=== PATIENT | male | born 1965 | race Caucasian/White ===

== ENCOUNTER 2020-04-21 10:26 | Outpatient (REF) | payer OTHER, SELFPAY ==
[2020-04-21 12:01] LABS: Alanine Aminotransferase 79 U/L (0-40); Albumin Level 4.2 g/dL (3.5-5.0); Alkaline Phosphatase 88 U/L (39-117); Aspartate Amino Transferase 32 U/L (5-37); Bilirubin Total 0.5 mg/dL (0.0-1.0); Blood Urea Nitrogen 20 mg/dL (9-16); Cholesterol 183 mg/dL; Estimated Glomerular Filt Rate 59; Glucose Fasting 348 mg/dL (60-99); HDL Cholesterol 40 mg/dL; LDL Cholesterol Calculated 114 mg/dl; Total Protein 6.9 g/dL (6.5-8.0); Triglycerides 146 mg/dL
[2020-04-21 12:02] LABS: Prostate Specific Antigen Scr 0.77 ng/mL (<0.05-4.0); TSH reflex Free T4 2.78 mIU/mL (0.32-4.0)
[2020-04-21 12:07] LABS: Anion Gap 12 (12-20); Carbon Dioxide 37 mmol/L (22-29); Chloride 94 mmol/L (96-108); Potassium 4.3 mmol/l (3.3-5.1); Sodium 139 mmol/L (135-145)
== END 2020-04-21 10:27 | disposition home or self-care (01) ==
LOC: HO.HMGCLDS 10:26
PROVIDERS: PCP Nurse Practitioner Family; Visit Provider Nurse Practitioner Family
DX: Z00.00 Encounter for general adult medical examination without abnormal findings (principal); Z12.5 Encounter for screening for malignant neoplasm of prostate; E11.9 Type 2 diabetes mellitus without complications
CPT/HCPCS: 80053; 80061; 84153; 84443

== ENCOUNTER 2020-12-22 09:13 | Outpatient (REF) | payer OTHER, SELFPAY ==
[2020-12-22 12:21] LABS: Estimated Average Glucose 143 mg/dL; Hemoglobin A1c % 6.6 %
[2020-12-22 12:34] LABS: Alanine Aminotransferase 43 U/L (0-40); Albumin Level 4.2 g/dL (3.5-5.0); Alkaline Phosphatase 77 U/L (39-117); Anion Gap 13 (12-20); Aspartate Amino Transferase 21 U/L (5-37); Bilirubin Total 0.5 mg/dL (0.0-1.0); Blood Urea Nitrogen 30 mg/dL (9-16); Carbon Dioxide 33 mmol/L (22-29); Chloride 102 mmol/L (96-108); Estimated Glomerular Filt Rate 58; Glucose Fasting 135 mg/dL (60-99); Potassium 3.6 mmol/L (3.3-5.1); Sodium 144 mmol/L (135-145); Total Protein 6.7 g/dL (6.5-8.0)
[2020-12-22 12:35] LABS: Creatinine Urine 182.39 mg/dL
== END 2020-12-22 09:14 | disposition home or self-care (01) ==
LOC: HO.HMGCLDS 09:13
PROVIDERS: PCP Nurse Practitioner Family; Visit Provider Nurse Practitioner Family
DX: E11.9 Type 2 diabetes mellitus without complications (principal)
CPT/HCPCS: 36415; 80053; 82043; 83036

== ENCOUNTER 2020-12-23 12:13 | Outpatient (REF) | payer OTHER, SELFPAY ==
--- NOTE | ~2020-12-23 | XR_ITS ---
EXAMINATION: XR HAND, RIGHT CLINICAL INFORMATION: Right hand pain. COMPARISON: None. TECHNIQUE: PA, lateral, and oblique views of the right hand. FINDINGS: No acute fracture or dislocation. Mild joint space narrowing with small marginal osteophytes scattered throughout the carpometacarpal, metacarpophalangeal, and interphalangeal joints. No osseous erosion. No abnormal soft tissue calcification. XR/XR hand RT min 3V IMPRESSION: No acute fracture or dislocation. Mild degenerative arthritis scattered throughout the carpometacarpal, metacarpophalangeal, and interphalangeal joints.
== END 2020-12-23 12:14 | disposition home or self-care (01) ==
LOC: HO.HOSX 12:13
PROVIDERS: Visit Provider Orthopaedic Surgery
DX: M20.011 Mallet finger of right finger(s) (principal)
CPT/HCPCS: 73130

== ENCOUNTER → 2021-02-03 12:41 | Outpatient (BNVA) | payer OTHER, SELFPAY | PROVIDERS: Visit Provider Orthopaedic Surgery ==

== ENCOUNTER → 2021-05-03 15:00 | Outpatient (BNVA) | payer OTHER, SELFPAY | PROVIDERS: PCP Nurse Practitioner Family; Referring Provider Nurse Practitioner Family; Visit Provider Surgery ==

== ENCOUNTER 2021-07-05 16:37 | Outpatient (REF) | payer OTHER, SELFPAY | END 2021-07-05 16:38 | disposition home or self-care (01) | LOC: HO.LNP 16:37 | PROVIDERS: Visit Provider Physician Assistant | DX: L02.419 Cutaneous abscess of limb, unspecified (principal); L03.119 Cellulitis of unspecified part of limb; L98.9 Disorder of the skin and subcutaneous tissue, unspecified | CPT/HCPCS: 87071; 87077; 87186; 87205 ==

== ENCOUNTER 2021-07-22 12:42 | Outpatient (RCR) | payer OTHER, SELFPAY | END 2021-09-01 10:18 | disposition home or self-care (01) | LOC: HO.WCC 12:42 | PROVIDERS: PCP Nurse Practitioner Family; Visit Provider Surgery | DX: E11.622 Type 2 diabetes mellitus with other skin ulcer (principal); I87.332 Chronic venous hypertension (idiopathic) with ulcer and inflammation of left lower extremity; L97.822 Non-pressure chronic ulcer of other part of left lower leg with fat layer exposed; F17.210 Nicotine dependence, cigarettes, uncomplicated; F12.90 Cannabis use, unspecified, uncomplicated; I25.2 Old myocardial infarction; Z72.89 Other problems related to lifestyle; Z86.19 Personal history of other infectious and parasitic diseases; Z79.899 Other long term (current) drug therapy; Z79.84 Long term (current) use of oral hypoglycemic drugs | CPT/HCPCS: 11042; 99213 ==

== ENCOUNTER 2021-08-12 14:09 | Outpatient (REF) | payer OTHER, SELFPAY ==
[2021-08-12 14:13] VITALS: BP 113/63; PULSE 80; RESP 16; TEMP 36.8; O2SAT 92; BMI 38.0
--- NOTE | 2021-08-12 14:34 | P.OP_ITS ---
Operative Note Operative Note Date of Service: 08/12/21 Narrative: Preop diagnosis: Scalp Cyst Postop diagnosis: Scalp cyst Procedure: Excision of scalp cyst under local anesthesia Surgeon: Jovan Garrison MD The patient is a 55-year-old male note of a scalp cyst on the right occipital area. This measured about 2.0 cm in diameter. He understood the technique of excision under local anesthesia. He was aware of the risks, benefits, and alternatives. He was brought to the minor procedure room. He was placed in reclining position with the head turned to the left to expose this cystic mass on the right occipital area. This area was prepped and draped. Lidocaine 1% with e pinephrine was used for local anesthesia. I made an incision on the skin overlying this cyst using blade 15. This was carried down through the full- thickness of the skin and part of subcutaneous layer until as this capsule was visualized. I sharply dissected the cyst capsule using Metzenbaum scissors to this from the rest of subcutaneous layer until this was delivered. This was about a 2 cm cystic mass consistent with a Pilar cyst I irrigated the area of excision. I closed the incision full-thickness nylon 3- 0 interrupted sutures. Bacitracin was applied. The procedure was then complete d The patient tolerated well. There were no complication noted. He was given wound care instructions and will be seen for removal sutures in the office.
== END 2021-08-12 14:10 | disposition home or self-care (01) ==
LOC: HO.MS 14:09
PROVIDERS: PCP Nurse Practitioner Family; Visit Provider Surgery
PROC: (CPT 11422; principal; 2021-08-12 14:10)
DX: L72.0 Epidermal cyst (principal)
CPT/HCPCS: 11422; 88304

== ENCOUNTER 2021-08-23 09:02 | Outpatient (REF) | payer OTHER, SELFPAY ==
[2021-08-23 11:59] LABS: Estimated Average Glucose 146 mg/dL; Hemoglobin A1c % 6.7 %
[2021-08-23 12:28] LABS: Appearance Urine CLEAR; Color Urine YELLOW; Glucose Urine UA >=1000 MG/DL (NEG); Leukocyte Esterase Urine NEG (NEG); Nitrite Urine NEG (NEG); Specific Gravity - Urine 1.025 (1.005-1.025); Urine Blood NEG (NEG); Urine Ketones NEG (NEG); Urine Protein NEG (NEG-TRACE)
[2021-08-23 12:38] LABS: Alanine Aminotransferase 66 U/L (0-40); Albumin Level 4.3 g/dL (3.5-5.0); Alkaline Phosphatase 73 U/L (39-117); Anion Gap 14 (12-20); Aspartate Amino Transferase 35 U/L (5-37); Bilirubin Total 0.7 mg/dL (0.0-1.0); Blood Urea Nitrogen 32 mg/dL (9-16); Calcium 9.5 mg/dL (8.4-10.2); Carbon Dioxide 32 mmol/L (22-29); Chloride 100 mmol/L (96-108); Cholesterol 119 mg/dL; Estimated Glomerular Filt Rate 54; Glucose Fasting 181 mg/dL (60-99); HDL Cholesterol 35 mg/dL; LDL Cholesterol Calculated 45 mg/dl; Potassium 3.5 mmol/L (3.3-5.1); Prostate Specific Antigen Scr 0.86 ng/mL (<0.05-4.0); Sodium 142 mmol/L (135-145); TSH reflex Free T4 2.03 uIU/mL (0.32-4.0); Triglycerides 197 mg/dL
[2021-08-23 14:15] LABS: RBC Urine 0 /HPF (0); WBC Urine 0 /HPF (0-4)
== END 2021-08-23 09:03 | disposition home or self-care (01) ==
LOC: HO.HMGCLDS 09:02
PROVIDERS: PCP Nurse Practitioner Family; Visit Provider Nurse Practitioner Family
DX: Z12.5 Encounter for screening for malignant neoplasm of prostate (principal); E11.9 Type 2 diabetes mellitus without complications; L72.9 Follicular cyst of the skin and subcutaneous tissue, unspecified
CPT/HCPCS: 36415; 80053; 80061; 81001; 81003; 83036; 84153; 84443

== ENCOUNTER 2022-02-08 15:40 | Outpatient (REF) | payer OTHER, SELFPAY ==
--- NOTE | ~2022-02-08 | XR_ITS ---
EXAMINATION: XR LUMBOSACRAL SPINE CLINICAL INFORMATION: Low back pain. COMPARISON: None TECHNIQUE: Three views of the lumbosacral spine. FINDINGS: There is normal lumbar lordosis. The vertebral heights and alignment is normal. There is loss of L5-S1 disc height. The rest of the disc heights are normal. There is no visible acute fracture, dislocation or subluxation seen. No bony erosive changes. XR/XR lumbar spine 2-3V IMPRESSION: L5-S1 degenerative disc changes. No visible acute fracture, dislocation or subluxation. There is mild ventral spondylosis.
== END 2022-02-08 15:41 | disposition home or self-care (01) ==
LOC: HO.HMGCX 15:40
PROVIDERS: PCP Nurse Practitioner Family; Visit Provider Nurse Practitioner Family
DX: M54.50 Low back pain, unspecified (principal)
CPT/HCPCS: 72100

== ENCOUNTER 2022-03-11 13:00 | Outpatient (RCR) | payer OTHER, SELFPAY ==
--- NOTE | 2022-02-17 14:06 | MHC.PT.EP ---
[facility] [place] [facility] [place] [facility] [place] Office [address] Renetta Ge [address] [phone] F: [phone] F: [phone] F: [phone] F: [phone] Physical Therapy Plan of Care Date of Evaluation: Date of Surgery: Diagnosis: low back pain and right sided sciatica Assessment: Patient is a 56 year old R handed male who presents with s/s consistent with low back pain, sciatica. 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 Patient past medical history includes neck surgery, depression. Current impairments include pain, posture, radicular s/s, ROM, strength, activity tolerance and functional mobility. Functional limitations include decreased ability to perform all function activities. He notes being able to sleep on 20 minutes at a time. Patient is motivated with good rehab potential. Skilled PT will address impairments and functional limitations in order to achieve goals. Frequency and Duration: The patient will be seen 2x/week for 5 weeks Short Term Goals: I with HEP - 2 weeks Centralized s/s - 3 weeks Able to sleep > 2 hours at a time - 3 weeks [employer] Professor Goals: LEFS 48/80 - 5 weeks Max pain with ADLs 2/10 - 5 weeks Demo proper understanding for maintaining centralized s/s and proper body mechanics - 5 weeks Treatment Plan: Modalities to reduce pain, spasms and effusion. Manual therapy to restore motion and function. Therapeutic exercise to improve strength and flexibility. Neuromuscular re-education for posture and balance. Therapeutic activities to return to functional activities of daily living. Electronically signed by: Waqas Araujo, PT Please sign and return to therapist. Thank you for your referral.
--- NOTE | 2022-04-12 11:07 | MHC.PT.DC ---
[facility] [place] [facility] [place] Office [place] [facility] [address] Renetta Ge [address] [phone] F: [phone] F: [phone] F: [phone] F: [phone] Physical Therapy Discharge Report Diagnosis: low back pain and right sided sciatica Date of Surgery: Date of Evaluation: 02/17/22 Date of Discharge: 04/12/22 Treatments to Date: 3 Cancellations to Date: No Shows to Date: Discharge Status: Improved Function Independent with HEP Discharge Summary: Pt elected to continue with HEP exclusively at this time. 02/28/22: pt progressing slowly. s/s centralized to buttocks and lumbar area. updated HEP with stretching. assess response and progress as tolerated. 02/21/22: pt seems to be having success centralizing s/s so far. he has been diligent with HEP. we will attempt to progress with core stab NV. Patient is a 56 year old R handed male who presents with s/s consistent with low back pain, sciatica. 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 Patient past medical history includes neck surgery, depression. Current impairments include pain, posture, radicular s/s, ROM, strength, activity tolerance and functional mobility. Functional limitations include decreased ability to perform all function activities. He notes being able to sleep on 20 minutes at a time. Patient is motivated with good rehab potential. Skilled PT will address impairments and functional limitations in order to achieve goals. Electronically signed by: Waqas Araujo, PT Please sign and return to therapist. Thank you for your referral.
== END 2022-04-12 11:08 | disposition home or self-care (01) ==
LOC: HO.PTCHIC 13:00
PROVIDERS: PCP Nurse Practitioner Family; Visit Provider Nurse Practitioner Family
DX: M54.50 Low back pain, unspecified (principal); M54.30 Sciatica, unspecified side
CPT/HCPCS: 97014; 97110; 97140; 97162

== ENCOUNTER 2022-06-22 12:19 | Outpatient (REF) | payer OTHER, SELFPAY ==
[2022-06-22 14:25] LABS: Appearance Urine Clear; Color Urine Yellow; Glucose Urine UA >=1000 mg/dL (Negative); Leukocyte Esterase Urine Negative (Negative); Nitrite Urine Negative (Negative); PH 5.5 (5.0-9.0); Specific Gravity - Urine >= 1.030 (1.005-1.025); UMIC TRIGGER UACC YES; Urine Blood Negative (Negative); Urine Ketones Negative (Negative); Urine Protein 30 (1+) mg/dL (Neg-Trace)
[2022-06-22 14:27] LABS: Bacteria Urine None Seen (None Seen); RBC Urine 0-2 /HPF (0-2); WBC Urine 0-5 /HPF (0-5)
[2022-06-22 14:34] LABS: MANUAL DIFF FLAG NO
[2022-06-22 14:52] LABS: Basophils Absolute Auto 0.1 X10*3/uL (0.0-0.2); Basophils Percent Auto 0.6 % (0-2); Eosinophils Absolute Auto 0.5 X10*3/uL (0.0-0.4); Eosinophils Percent Auto 4.7 % (0-4); Hematocrit 52.1 % (42.0-52.0); Hemoglobin 17.1 g/dl (14.0-18.0); Imm Gran Abs Auto 0.03 X10*3/uL (0.00-0.03); Imm Gran Pct Auto 0.3 % (0.0-0.4); Lymphocytes Percent Auto 20.9 % (20-40); Mean Corpuscular HGB Conc 32.8 g/dl (31.0-36.0); Mean Corpuscular Hemoglobin 29.5 pg (27.0-33.0); Mean Platelet Volume 11.5 fL (9.4-12.4); Neutrophils Absolute Auto 6.2 x10*3/uL (2.0-8.3); Neutrophils Percent Auto 63.5 % (45-73); Platelet Count 181 X10*3/uL (160-400); Red Blood Count 5.79 X10*6/uL (4.60-5.80); Red Cell Distribution Width 12.8 % (11.0-16.0); White Blood Count 9.7 X10*3/uL (4.8-10.8)
[2022-06-22 15:18] LABS: Alanine Aminotransferase 54 U/L (0-40); Albumin Level 4.2 g/dL (3.5-5.0); Alkaline Phosphatase 80 U/L (39-117); Anion Gap 13 (12-20); Aspartate Amino Transferase 29 U/L (5-37); Bilirubin Total 0.7 mg/dL (0.0-1.0); Blood Urea Nitrogen 33 mg/dL (9-16); Calcium 9.2 mg/dL (8.4-10.2); Carbon Dioxide 34 mmol/L (22-29); Chloride 102 mmol/L (96-108); Cholesterol 112 mg/dL; Estimated Glomerular Filt Rate 45; Glucose Fasting 119 mg/dL (60-99); HDL Cholesterol 32 mg/dL; LDL Cholesterol Calculated 44 mg/dl; Potassium 3.9 mmol/L (3.3-5.1); Sodium 145 mmol/L (135-145); Total Protein 6.6 g/dL (6.5-8.0); Triglycerides 183 mg/dL
[2022-06-22 15:38] LABS: Estimated Average Glucose 148 mg/dL; Hemoglobin A1c % 6.8 %
== END 2022-06-22 12:20 | disposition home or self-care (01) ==
LOC: HO.HMGCLDS 12:19
PROVIDERS: PCP Nurse Practitioner Family; Visit Provider Nurse Practitioner Family
DX: E11.9 Type 2 diabetes mellitus without complications (principal)
CPT/HCPCS: 36415; 80053; 80061; 81001; 82043; 83036; 84443; 85025

== ENCOUNTER 2022-07-14 11:33 | Outpatient (REF) | payer OTHER, SELFPAY ==
--- NOTE | ~2022-07-14 | US_ITS ---
EXAMINATION: US ABDOMEN COMPLETE CLINICAL INFORMATION: Abnormal levels of other serum enzymes. COMPARISON: None available. TECHNIQUE: Real-time imaging of the abdominal viscera. FINDINGS: PANCREAS: Obscured by bowel gas and could not be evaluated. ABDOMINAL AORTA: Obscured by bowel gas and poorly seen. The distal abdominal aorta measures 2 cm. INFERIOR VENA CAVA: Visualized portions are normal. LIVER: The liver is enlarged measuring greater than 19.5 cm in cephalocaudad dimension with increased echogenicity, consistent with hepatic steatosis. The liver contour is normal. No focal hepatic lesion. There is no intrahepatic biliary duct dilatation seen. GALLBLADDER: Surgically absent. COMMON BILE DUCT: Normal in caliber measuring 0.3 cm in diameter. RIGHT KIDNEY: A lower pole 2.2 cm Bosniak class I cyst is present which needs no additional imaging or follow up. No solid renal masses. No hydronephrosis or renal calculi. The kidney measures 11.5 cm in maximum dimension. LEFT KIDNEY: 2 lower pole Bosniak class I cysts are seen the largest measuring 1.2 cm. These need no additional imaging or follow up. No solid renal masses. No hydronephrosis or renal calculi. The kidney measures 13.1 cm in maximum dimension. SPLEEN: Normal. The spleen is minimally enlarged measuring 12.3 cm in maximum dimension. FREE FLUID: None. US/US abdomen complete IMPRESSION: Enlarged fatty liver with mild splenomegaly.
== END 2022-07-14 11:34 | disposition home or self-care (01) ==
LOC: HO.HMGCX 11:33
PROVIDERS: PCP Nurse Practitioner Family; Visit Provider Nurse Practitioner Family
DX: R74.8 Abnormal levels of other serum enzymes (principal)
CPT/HCPCS: 76700

== ENCOUNTER 2022-12-28 10:01 | Outpatient (AMB) | payer OTHER, SELFPAY ==
[2022-12-28 10:24] VITALS: BP 102/68; PULSE 59; O2SAT 96; BMI 38.4
--- NOTE | 2022-12-28 10:24 | A.OFFPC_ITS ---
Vital Signs 12/28/22 10:24 Height 5 ft 10 in Weight 267 lb 6 oz BMI 38.4 BP 102/68 Blood Pressure Location Lt brachial Position Sitting Pulse 59 Pulse Source Pulse Oximeter Pulse Oximetry (%) 96 Oxygen Delivery Method Room Air Intake Visit Reasons: DM Allergies Opioids - Morphine Analogues Allergy (Unknown, Verified 12/28/22 11:24) unknown Medication List - Last Reconciled 12/28/22 by Ta Serrano, SHINGLES ROOFER HELPER- albuterol sulfate 90 mcg/actuation 2 puffs inhalation Q4-6H PRN alcohol swabs (Alcohol Prep Pads) 1 pad topical BID atorvastatin 10 mg PO BEDTIME blood sugar diagnostic Onetouch test strips blood sugar diagnostic (TameTouch Ultra Blue Test Strip) Use to test blood sugar twice daily or as needed blood-glucose meter (TameTouch Ultra2 Meter) Use to check blood sugar twice daily or as needed carvedilol 25 mg PO BID 90 days clonidine HCl 0.2 mg PO BID empagliflozin (Jardiance) 10 mg PO DAILY gabapentin 200 mg (2 x 100 mg) PO TID 30 days hydralazine 100 mg PO TID hydrochlorothiazide 25 mg PO DAILY 90 days lancets (TameTouch Delica Plus Lancet) Use to check blood sugar twice daily lancets As directed lisinopril 40 mg PO DAILY metformin 1,000 mg PO BID naproxen 500 mg PO BID PRN 30 days nifedipine ER 30 mg PO BID oxycodone 5 mg PO BID PRN 8 days semaglutide (Ozempic) 0.25 mg (0.368 mL) subcut QWEEK sertraline (Zoloft) 100 mg PO DAILY 90 days tizanidine 4 mg PO BID PRN 30 days Tobacco use date assessed: 12/28/22 Dental Screening Dental Screen Date: 12/28/22 Did you have a dental visit in the last 12 months?: Yes Did you have a dental problem in the last 6 months where you did not have access to dental care?: No Was dental information given to patient?: Patient has dentist HPI DM HPI Details Pt is a diabetic, on an AKRL and a statin. A1C in office today is 7.1. Microalbumin is up to date. Denies polyuria, polydipsia, does report neuropathy. Pt denies any signs and symptoms of hypoglycemia and does know how to correct it. Eye exam is up to date. Pt was recently on steroids which caused his blood sugar to be in the 200s-300s. Will start ozempic 0.25mg. Due for PSA, will order. Denies dribbling with urination, weak stream, and nocturia. Pt is following up with the spine center on 01/25 due to chronic lower back pain. He is having severe mobility issues and walks with a cane, hunched forward. Denies any signs of cauda equina. [facility] Medical History Arthritis Asthma Depression Diabetes (~2019) Hypertension Nicotine dependence, cigarettes, uncomplicated Sleep apnea Surgical History History of cholecystectomy (~1996) History of excision of lesion (~2021) History of liver biopsy (~1996) Family History Mother Diabetes Hypertension Father Diabetes Hypertension Hyperlipidemia Social History Housing: House Alcohol intake: current Alcohol intake frequency: a few times a week Patient Tobacco Use Status: Current everyday Tobacco user Cigarette Packs Per Day: 1 Cigarettes Per Day: 16 Second Hand Smoke Exposure: Yes service: No Current occupational status: retired and disabled Current occupational exposures/hazards: No Cognitive needs: No Hearing needs: No Vision needs: No Questionnaire Thrive Questionnaire Date Thrive assessed: 07/19/21 I am a: Patient What is your living situation today?: I have a steady place to live Within the past 12 months, did the food you bought not last and you didn't have the money to get more?: Never true Within the past 12 months, did you worry whether your food would run out before you got money to buy more?: Never true AUDIT C Alcohol Use Questionnaire (AUDIT-C) 1. How often do you have a drink containing alcohol?: 2-3 times a week 2. How many drinks containing alcohol do you have on a typical day when you are drinking?: 1 or 2 3. How often do you have six or more drinks on one occasion?: Never Total Score: 3 GELA-7 AMB Questionnaire GELA-7 Date GELA - 7 assessed: 07/19/21 Feeling nervous, anxious, or on edge: 3 = Nearly every day Not being able to stop or control worryin = Nearly every day Worrying too much about different things: 3 = Nearly every day Trouble relaxin = Not at all Being so restless that it is hard to sit still: 0 = Not at all Becoming easily annoyed or irritable: 2 = More than half the days Feeling afraid as if something awful might happen: 3 = Nearly every day Total GELA-7 score (0-4 normal; 5-9 mild; 10-14 moderate; 15-21 severe): 14 Source: Developed by Drs. Gamaliel Medina, Donya Robbins, Amol Griffin and colleagues, with an educational eli from [employer]. Review of Systems Const Reports as per HPI Physical exam (Primary Care) Vital Signs: Last Vital Signs Pulse 59 12/28/22 10:24 BP 102/68 12/28/22 10:24 Pulse Ox 96 12/28/22 10:24 Oxygen Delivery Method Room Air 12/28/22 10:24 BMI result Body Mass Index 38.4 Tobacco/Smoking Status: Tobacco use Status Tobacco use date assessed 12/28/22 12/28/22 10:31 Patient Tobacco Use Status Current everyday Tobacco 12/28/22 10:24 Thrive Assessment: Date of Thrive Assessment Date Thrive assessed 07/19/21 12/28/22 10:24 Const Other: slow gait General: cooperative Nutritional Appearance: obese Orientation/consciousness: patient oriented x3 Limitations: ambulation with cane Resp Effort & Inspection: normal respiratory effort Auscultation: wheezes (faint) scattered wheezes Cardio Rate: regular rate Rhythm: regular rhythm Heart sounds: S1 normal heart sound present and S2 normal heart sound present Neuro General: patient oriented x3 Extrem Other: +1-2 pitting edema to BLE, feet intact, weakness to BLE, + patellar reflexes bilat Psych Appearance: grossly normal Mental Status: mental status grossly normal Speech and movement: Normal speech and movement present Affect: normal affect Attitude: cooperative Thought process: Normal thought process present Thought content: Normal thought content present Insight: Good insight present (Psych) Judgement: Good judgement present (Psych) Results AMB Hemoglobin A1c AMB Hemoglobin A1c 7.1 % Last Edit by Talia Barbour CMA on 12/28/22 10: 42 Results Reviewed Results Reviewed: Laboratory Last Values Hgb A1c (Clinic) 7.1 % (4.0-6.0) H 12/28/22 10:37 Assessment and Plan Assessment & Plan (1) Screening PSA (prostate specific antigen): Code(s): Z12.5 - Encounter for screening for malignant neoplasm of prostate Plan: PSA ordered (2) Diabetes: Onset Date: ~2019 Code(s): E11.9 - Type 2 diabetes mellitus without complications (3) Lower back pain: Code(s): M54.50 - Low back pain, unspecified (4) Nerve root compression: Code(s): 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 Scribed for SYED Barrera-BC by Katherine Major medical radiation dosimetrist, on 12/28/2022 at 10:30 EST. Orders: Orders Comprehensive White. Panel Fast Today E11.9 - Type 2 diabetes mellitus without complications Lipid Panel Today E11.9 - Type 2 diabetes mellitus without complications TSH reflex Free T4 Today E11.9 - Type 2 diabetes mellitus without complications Complete Blood Count Auto Diff Today E11.9 - Type 2 diabetes mellitus without complications UA CC w/rflx Micro + Cult Today E11.9 - Type 2 diabetes mellitus without complications Prostate Specific Antigen Scr Today Z12.5 - Encounter for screening for malignant neoplasm of prostate CA echo transthoracic complete Today M79.89 - Other specified soft tissue disorders B Type Natriuretic Peptide Today M79.89 - Other specified soft tissue disorders AMB Hemoglobin A1c Today E11.9 - Type 2 diabetes mellitus without complications Medications: New semaglutide (Ozempic) for 4 weeks 0.25 mg (0.368 mL) subcut QWEEK 3 mL 2RF Coding Level of Care Code Est Pt Level 3 (55136) Diagnoses Screening PSA (prostate specific antigen) Z12.5 Diabetes E11.9 Lower back pain M54.50 Nerve root compression G54.9 Leg swelling M79.89
== END 2022-12-28 11:09 | disposition home or self-care (01) ==
PROVIDERS: Visit Provider Nurse Practitioner Family
DX: Z12.5 Encounter for screening for malignant neoplasm of prostate (principal); E11.9 Type 2 diabetes mellitus without complications; M54.50 Low back pain, unspecified; G54.9 Nerve root and plexus disorder, unspecified; M79.89 Other specified soft tissue disorders
CPT/HCPCS: 83036; 99213

== ENCOUNTER 2022-12-28 11:07 | Outpatient (REF) | payer OTHER, SELFPAY ==
[2022-12-28 13:22] LABS: MANUAL DIFF FLAG NO
[2022-12-28 13:41] LABS: Basophils Absolute Auto 0.1 X10*3/uL (0.0-0.2); Basophils Percent Auto 0.4 % (0-2); Eosinophils Absolute Auto 0.2 X10*3/uL (0.0-0.4); Eosinophils Percent Auto 1.2 % (0-4); Imm Gran Abs Auto 0.21 X10*3/uL (0.00-0.03); Imm Gran Pct Auto 1.6 % (0.0-0.4); Lymphocytes Absolute Auto 1.9 X10*3/uL (1.2-4.9); Lymphocytes Percent Auto 14.8 % (20-40); Mean Corpuscular HGB Conc 32.7 g/dl (31.0-36.0); Mean Corpuscular Volume 94.7 fL (80.0-98.0); Mean Platelet Volume 11.3 fL (9.4-12.4); Monocytes Absolute Auto 1.1 X10*3/uL (0.1-1.2); Monocytes Percent Auto 8.7 % (2-11); Neutrophils Absolute Auto 9.3 x10*3/uL (2.0-8.3); Neutrophils Percent Auto 73.3 % (45-73); Platelet Count 197 X10*3/uL (160-400); Red Blood Count 5.49 X10*6/uL (4.60-5.80); Red Cell Distribution Width 13.2 % (11.0-16.0); White Blood Count 12.7 X10*3/uL (4.8-10.8)
[2022-12-28 14:08] LABS: B Type Natriuretic Peptide 59 pg/mL (<100)
[2022-12-28 14:20] LABS: Appearance Urine Clear; Color Urine Yellow; Glucose Urine UA Negative (Negative); Leukocyte Esterase Urine Negative (Negative); Nitrite Urine Negative (Negative); PH 5.5 (5.0-9.0); Specific Gravity - Urine 1.025 (1.005-1.025); Urine Blood Negative (Negative); Urine Ketones Negative (Negative); Urine Protein Trace mg/dL (Neg-Trace)
[2022-12-28 14:31] LABS: Alanine Aminotransferase 65 U/L (0-40); Albumin Level 4.2 g/dL (3.5-5.0); Alkaline Phosphatase 55 U/L (39-117); Anion Gap 14 (12-20); Aspartate Amino Transferase 24 U/L (5-37); Bilirubin Total 0.7 mg/dL (0.0-1.0); Blood Urea Nitrogen 37 mg/dL (9-16); Calcium 9.8 mg/dL (8.4-10.2); Carbon Dioxide 32 mmol/L (22-29); Chloride 105 mmol/L (96-108); Cholesterol 137 mg/dL (<200); Estimated Glomerular Filt Rate 56; Glucose Fasting 172 mg/dL (60-99); HDL Cholesterol 38 mg/dL (>40); LDL Cholesterol Calculated 49 mg/dL (<100); Potassium 4.9 mmol/L (3.3-5.1); Prostate Specific Antigen Scr 0.55 ng/mL (<0.05-4.0); Sodium 146 mmol/L (135-145); TSH reflex Free T4 2.54 uIU/mL (0.32-4.0); Total Protein 6.5 g/dL (6.5-8.0); Triglycerides 253 mg/dL (<150)
== END 2022-12-28 11:08 | disposition home or self-care (01) ==
LOC: HO.HMGCLDS 11:07
PROVIDERS: PCP Nurse Practitioner Family; Visit Provider Nurse Practitioner Family
DX: Z12.5 Encounter for screening for malignant neoplasm of prostate (principal); E11.9 Type 2 diabetes mellitus without complications; M79.89 Other specified soft tissue disorders
CPT/HCPCS: 36415; 80053; 80061; 81003; 83880; 84153; 84443; 85025

== ENCOUNTER 2022-12-30 14:52 | Outpatient (REF) | payer OTHER, SELFPAY ==
--- NOTE | ~2022-12-30 | XR_ITS ---
EXAMINATION: XR CHEST CLINICAL INFORMATION: Elevated white blood cell count. COMPARISON: None TECHNIQUE: 2 views of the chest were obtained. FINDINGS: The cardiomediastinal silhouette is normal. There is no focal lung consolidation or pleural effusion. The bony structures and soft tissues are unremarkable. XR/XR chest 2V IMPRESSION: No active cardiopulmonary disease.
--- NOTE | 2022-12-30 14:58 | ECG_ITS ---
Test Reason : type II DM Blood Pressure : / mmHG Vent. Rate : 072 BPM Atrial Rate : 072 BPM P-R Int : 244 ms QRS Dur : 118 ms QT Int : 406 ms P-R-T Axes : 038 030 071 degrees QTc Int : 444 ms Sinus rhythm with 1st degree A-V block Intra-ventricular conduction delay Septal infarct , age undetermined Abnormal ECG No previous ECGs available Referred By: Ta Serrano Electronically Signed By:SARTHAK PATEL
== END 2022-12-30 14:53 | disposition home or self-care (01) ==
LOC: HO.XRAY 14:52
PROVIDERS: PCP Nurse Practitioner Family; Visit Provider Nurse Practitioner Family
DX: E11.9 Type 2 diabetes mellitus without complications (principal); M79.89 Other specified soft tissue disorders; D72.829 Elevated white blood cell count, unspecified
CPT/HCPCS: 71046; 93005

== ENCOUNTER 2023-01-06 13:39 | Outpatient (REF) | payer OTHER, SELFPAY ==
--- NOTE | ~2023-01-06 | XR_ITS ---
EXAMINATION: XR LUMBOSACRAL SPINE CLINICAL INFORMATION: Reason for Exam G54.9 - Nerve root and plexus disorder, unspecified COMPARISON: Lumbar spine radiographs 02/08/2022 TECHNIQUE: 3 views of the lumbar spine FINDINGS: 5 nonrib-bearing lumbar-type vertebral bodies. Vertebral body heights are maintained. Grade 1 retrolisthesis of L2 on L3 and L3 on L4 minimally progressed from prior. No instability on flexion extension views. Mild multilevel degenerative disc disease with loss of disc space height and facet arthropathy and disc osteophyte complexes, similar to prior. Atherosclerosis of the abdominal aorta. Right upper quadrant cholecystectomy clips. XR/XR lumbar spine 4V min IMPRESSION: * Mild multilevel degenerative disc disease, similar to prior. * Grade 1 retrolisthesis of L2 on L3 and L3 on L4 minimally progressed from prior. No instability on flexion extension views.
== END 2023-01-06 13:40 | disposition home or self-care (01) ==
LOC: HO.HOSX 13:39
PROVIDERS: PCP Nurse Practitioner Family; Visit Provider Physician Assistant
DX: G54.9 Nerve root and plexus disorder, unspecified (principal); G95.9 Disease of spinal cord, unspecified
CPT/HCPCS: 72110

== ENCOUNTER 2023-01-06 13:39 | Outpatient (AMB) | payer OTHER, SELFPAY ==
--- NOTE | 2023-01-06 13:52 | A.SPINEOV_ITS ---
Intake Intake Visit Reasons: low back pain Intake Note: Mr. Xavier is here today c/o low back pain. MRI done @ [facility]/brought disc. 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 He is a 57-year-old diabetic, presents to the office today for evaluation of progressive severe pain starting in his tailbone going down both of his legs to his outer calves into his feet. He has had the symptoms on and off now for a number of years but have been getting progressively worse. This October he fell and his noticed the symptoms getting significantly worse. He underwent an MRI showing severe stenosis at L4-5 and L3-4 with moderate stenosis at L2-3 as well as a disc bulge on the right at L5-S1. Through the years he has undergone physical therapy. More recently he has been getting steroid taper to try to help with the discomfort. The symptoms are aggravated with standing and walking and go away when he sits. The right leg is probably worse than the left. He has altered sensation on the bottom of his feet. He currently will take Zanaflex, oxycodone Aleve and Neurontin to help deal with the symptoms. PMH: Asthma, chronic kidney disease, diabetes with A1c of 7.1, depression, hypertension, ACDF in 2017, gallbladder surgery, lithotripsy Social hx: Smoking a pack of cigarettes a day Medications: Jardiance, he is going to start Ozempic soon, metformin, Coreg, nifedipine, Flomax, clonidine, lisinopril, hydrochlorothiazide, hydralazine, atorvastatin, Zoloft, Zanaflex, oxycodone, Aleve and Neurontin Allergies: Morphine gives him itching Physical exam: He is awake alert oriented no acute distress here with his today. She is a nurse. He has good strength in the upper extremities. He has a lot of discomfort with movement proximally in his lower extremities but his strength appears to be full. He is diffusely hyperreflexic with Loja's in his left hand. He walks with an antalgic gait flexed forward. Imaging review: He had a lumbar MRI done at [facility] showing significant stenosis throughout most of his lumbar spine including moderate stenosis at L2- 3, moderate to severe stenosis at L3-4 and severe stenosis at L4-5. He has a right-sided disc bulge at L5-S1 which is displacing the right S1 nerve root. Impression: 57-year-old diabetic gentleman, history of a previous ACDF 7 years ago presents for evaluation of progressive difficulty walking with classic neurogenic claudication with severe stenosis at L4-5, moderate to severe at L3-4 as well as moderate stenosis at L2-3 and a right disc bulge at L5-S1. From the standpoint of the claudicating discomfort I think most of the symptoms are coming from L4-5 and L3-4. I showed him his imaging, we discussed at length the nature of lumbar stenosis and the fact that at this point given his significant disabilities with standing and walking that I think he would be a good candidate for lumbar decompression. I will need to review with Dr. Fernandes if he thinks we should go for all 4 of the spots in his spine or just stick with the 2 that looks the worst given his young age. I am going to send him for standing flexion-extension x-rays to rule out any instability that would necessitate spinal fusion. I am also going to order C-spine MRI because he is still diffusely hyperreflexic and I want to make sure he does not have some kind of occult cervical stenosis that may be also overlapping his lumbar stenosis giving him walking difficulties. We will need some kind of preoperative clearance from your office before surgery given his multiple risk factors. Thank you for allowing us to care for your patient. The total time spent with this visit with this patient was 45 minutes reviewing history, physical exam, lumbar imaging review, and implementation of treatment plan or further diagnostic testing Daryl Fernandes MD,PhD [facility] Orders: Orders MR cervical spine wo con Today G54.9 - Nerve root and plexus disorder, unspecified, G95.9 - Disease of spinal cord, unspecified XR lumbar spine 4V min Today G54.9 - Nerve root and plexus disorder, unspecified Coding Level of Care Code New Pt Level 4 (84809) Diagnoses Nerve root compression G54.9 Cervical myelopathy G95.9
== END 2023-01-06 14:54 | disposition home or self-care (01) ==
PROVIDERS: PCP Nurse Practitioner Family; Referring Provider Nurse Practitioner Family; Visit Provider Physician Assistant
DX: G54.9 Nerve root and plexus disorder, unspecified (principal); G95.9 Disease of spinal cord, unspecified
CPT/HCPCS: 99204

== ENCOUNTER 2023-01-31 13:39 | Outpatient (AMB) | payer OTHER, SELFPAY ==
--- NOTE | 2023-01-31 13:58 | A.SPINEOV_ITS ---
Intake Intake Visit Reasons: MRI follow up Intake Note: Mr. Xavier is here today to discuss the results of his Cervical Spine MRI. Business Asst Required: No Allergies Opioids - Morphine Analogues Allergy (Unknown, Verified 12/28/22 11:24) unknown Assessment & Plan Assessment & Plan (1) Cervical myelopathy: Code(s): G95.9 - Disease of spinal cord, unspecified Plan Mr Xavier is here in follow-up to review his cervical MRI. I originally saw him with complaints of bilateral lower extremity pain and booked him for lumbar decompression at the L3-4 and L4-5 levels. There the course of her and review he told me he had a previous cervical fusion anteriorly at [facility] about 5 or 6 years ago from C4-C7. He was demonstrating signs of hyperreflexia so is concerned about adjacent segment disease and ordered an MRI. The MRI was done at [email or web address] and it showed evidence of severe cervical stenosis with suspected cord signal change at C3-4. I reviewed the imaging with Dr. Fernandes, we are recommending he undergo anterior cervical fusion C3-4 before we proceed with the lumbar decompression. We did a set of x-rays in the office, and we do not think we will have to remove the plate to get access to the C3-4. We will book his lumbar decompression for 3 weeks after the anterior cervical fusion. All pertinent risks and benefits of anterior cervical fusion and lumbar decompression were discussed as well as risks and benefits and the patient is aware and wished to proceed. Total amount of time spent in this visit was 20 minutes in discussion of symptoms, cervical and lumbar imaging results and subsequent plan of care Daryl Fernandes MD,PhD [facility] Orders: Orders XR cervical spine 4V Today G95.9 - Disease of spinal cord, unspecified Coding Level of Care Code Est Pt Level 3 (16991) Diagnoses Cervical myelopathy G95.9
== END 2023-01-31 14:22 | disposition home or self-care (01) ==
PROVIDERS: PCP Nurse Practitioner Family; Visit Provider Physician Assistant
DX: G95.9 Disease of spinal cord, unspecified (principal)
CPT/HCPCS: 99213

== ENCOUNTER 2023-01-31 14:12 | Outpatient (REF) | payer OTHER, SELFPAY | END 2023-01-31 14:13 | disposition home or self-care (01) | LOC: HO.HOSX 14:12 | PROVIDERS: Visit Provider Physician Assistant | DX: G95.9 Disease of spinal cord, unspecified (principal) | CPT/HCPCS: 72050 ==

== ENCOUNTER → 2023-01-31 14:59 | Outpatient (REF) | payer OTHER, SELFPAY ==
--- NOTE | 2023-01-31 15:02 | CA_ITS ---
Transthoracic Echocardiogram Patient (Last, First, Middle): Zackery Xavier, Gender: Male Date of : 1965 Age: 57 Procedure Date: 01/31/2023 Procedure Type: Transthoracic Echocardiogram Location: OP Height: 177.8 cm Weight: 113.4 kg BSA: 2.29 m2 Heart Rate: bpm BP: 118 / 70 mmHg Rooming House Operator: MONICA Referring MD: Ta Serrano JEWEL OLIVING MACHINE OPERATOR- Symptoms: M79.89 - Other specified soft tissue disorders Study Quality: Adequate ECG Rhythm: Sinus Conclusions: - The left ventricular systolic function is normal. The calculated ejection fraction is 63% by biplane method. - There is moderately increased left ventricular wall thickness. - There is severe septal and severe basal asymmetric hypertrophy. - No obvious valvular pathology seen on this study. Findings Left Ventricle Normal left ventricular cavity size. There is moderately increased left ventricular wall thickness. The left ventricular systolic function is normal. The calculated ejection fraction is 63% by biplane method. There is no evidence of regional wall motion abnormalities. Evidence suggests grade I (mild) diastolic dysfunction. There is severe septal and severe basal asymmetric hypertrophy. LV peak GLS -15.7%. Right Ventricle Normal right ventricular cavity size and systolic function. Atria Both atria are normal in size. Aortic Valve There is a normal trileaflet aortic valve. There is mild calcification of the aortic valve. There is no aortic valve stenosis. There is no aortic valve regurgitation. Mitral Valve The mitral valve appears normal. There is no mitral valve regurgitation. There is no mitral valve stenosis. Pulmonic Valve The pulmonic valve is likely normal. Tricuspid Valve Normal tricuspid valve structure. There is trace tricuspid valve regurgitation. There is no evidence of pulmonary hypertension. Great Vessels The asc aorta is normal in size. Venous The inferior vena cava is normal in size and collapses greater than 50% with inspiration. Pericardium/Pleural There is no evidence of pericardial effusion. Prior Study Comparison No prior study available for comparison. Recommendations, Care & Conclusions No obvious valvular pathology seen on this study. Measurements 2D Linear Measurements IVSd: 1.75 0.6-0.9/0.6-1.0 cm LVIDd: 4.84 3.9-5.3/4.2-5.9 cm LVIDd Index: 2.11 2.4-3.2/2.2-3.1 cm/m2 LVIDs: 3.23 2.0-3.6 cm LVPWd: 1.42 0.7-1.1 cm LA Diam: 4.40 2.7-3.8/3.0-4.0 cm LAIDs Index: 1.92 1.5-2.3 cm/m2 LV Mass: 416.56 67-162/88-224 g LV Mass Index: 181.91 43-95/49-115 g/m2 LVOT Diam: 2.20 3.0+(-)1.3 cm 2D Systolic Function EF 4C: 58.60 >55% EF 2C: 67.00 >55% EF BiP: 63.10 >55% Mitral Valve MV Pk E: 0.81 MV PK A: 0.59 MV Decel Time: 228.00 E/A: 1.40 E'Lateral: 9.25 E'Medial: 4.68 E/E' Med: 17.40 E/E' Lat: 8.80 PHT: 67.00 MVA PHT: 3.28 Decel [place]: 3.57 Aortic Valve AoV Pk Curly: 1.55 AoV Mn Curly: 1.06 AoV VTI: 0.29 AoV Pk Grad: 10.00 Aov Mn Grad: 5.00 HEIDY Cont.VTI: 3.37 LVOT LVOT Pk Curly: 1.23 LVOT Mn Curly: 0.86 LVOT VTI: 0.26 LVOT Pk Grad: 6.00 LVOT Mn Grad: 3.00 LVOT Diam: 2.20 LVOT Area: 3.80 Diastolic Function MV Pk E: 0.81 MV Pk A: 0.59 E/A: 1.40 E'Medial: 4.68 E/E' Med: 17.40 E' Laterial: 9.25 E/E' Lat: 8.80 Right Ventricle TAPSE (mm): 20.90 TVS' Curly: 14.30 Tricuspid Valve TR Pk Curly: 2.13 TR Pk Grad: 18.00 RA Press: 3.00 RVSP: 21.00 Great Vessels Aorta Sinus of Valsalva: 3.65 2.0-3.[address] [place]: 2.91 1.7-3.4 cm Ao Asc: 3.70 2.1-3.4 cm Updated in Other Vendor System with Status of Final Eric Rollins MD electronically signed on 02/01/2023 1:22:07 PM with status of Final
== END ==
LOC: HO.CARD 14:59
PROVIDERS: PCP Nurse Practitioner Family; Visit Provider Nurse Practitioner Family
DX: R60.0 Localized edema (principal); R94.31 Abnormal electrocardiogram [ECG] [EKG]
CPT/HCPCS: 93306; 93356

== ENCOUNTER → 2023-01-31 15:02 | Outpatient (BNV) | payer OTHER, SELFPAY | PROVIDERS: PCP Nurse Practitioner Family; Visit Provider Internal Medicine | DX: I35.8 Other nonrheumatic aortic valve disorders (principal) | CPT/HCPCS: 93306 ==

== ENCOUNTER → 2023-02-03 08:28 | Outpatient (REF) | payer OTHER, SELFPAY ==
--- NOTE | ~2023-02-03 | NM_ITS ---
Lexiscan Myocardial perfusion study Indication: Abnormal EKG, assess for coronary disease and ischemia Technique: The patient was brought in for a Lexiscan perfusion study on 02/03/2023 and was injected 0.4 mg of Lexiscan intravenously. Within a minute of this injection 40 mCi of sestamibi was given intravenously. Images were obtained using the SPECT gamma camera interlaced with the gating device. Images were obtained in supine position. Resting perfusion study was performed on 02/08/2023. Patient was administered 40 mCi of sestamibi intravenously at rest. Images were then obtained in supine position. Images were processed with the software and compared side to side in short axis, horizontal long axis and vertical long axis views. Total DLP 129mGy-cm. Findings: Raw acquisition reviewed. The stress perfusion study showed diminished tracer uptake along the inferior wall. There is significant improvement with CT attenuation correction suggestive of diaphragmatic attenuation artifact. The gated study shows normal LV systolic function with calculated LVEF of 55%. LV cavity is normal in size. The gated study shows normal wall thickening and contraction of segments. Resting study shows diminished tracer uptake along the inferior wall. There is improvement with CT attenuation correction suggestive of diaphragmatic attenuation artifact. Gating at rest reveals normal wall motion with ejection fraction at 55%. The findings are consistent with fixed inferior perfusion defect likely from diaphragmatic attenuation artifact. No clear reversible defects. NM/NM cardiolite stress test Impression: 1. Myocardial perfusion imaging study shows probably normal myocardial perfusion. 2. Gated LVEF is 55% during stress and rest. 3. Transient ischemic dilatation not present. EKG component of the test reported separately.
== END ==
LOC: HO.CARD 08:28
PROVIDERS: PCP Nurse Practitioner Family; Visit Provider Nurse Practitioner Family
DX: R94.31 Abnormal electrocardiogram [ECG] [EKG] (principal); E11.9 Type 2 diabetes mellitus without complications; F17.210 Nicotine dependence, cigarettes, uncomplicated
CPT/HCPCS: 78452; 93017; A9500; J0280; J2785

== ENCOUNTER → 2023-02-03 08:30 | Outpatient (BNV) | payer OTHER, SELFPAY | PROVIDERS: PCP Nurse Practitioner Family; Visit Provider Nurse Practitioner | DX: R94.31 Abnormal electrocardiogram [ECG] [EKG] (principal) | CPT/HCPCS: 78452; 93016; 93018 ==

== ENCOUNTER 2023-02-07 14:35 | Outpatient (AMB) | payer OTHER, SELFPAY ==
--- NOTE | 2023-02-07 14:38 | MHC.PC.OV ---
Intake Visit Reasons: Pre-op visit (general surgery) Allergies Opioids - Morphine Analogues Allergy (Unknown, Verified 12/28/22 11:24) unknown morphine Allergy (Verified 02/02/23 10:39) Itching, disoriented Tobacco use date assessed: 12/28/22 [facility] Medical History (Updated 02/02/23 @ 10:37 by Yazmin Lozano RN) Stage 3b chronic kidney disease (CKD) Use of cane as ambulatory aid Nicotine dependence, cigarettes, uncomplicated Diabetes (~2019) Depression Arthritis Sleep apnea Asthma Hypertension Surgical History (Updated 02/02/23 @ 10:32 by Yazmin Lozano, CARLITO) History of fusion of cervical spine Hx of cystoscopy Hx of lithotripsy History of liver biopsy (~1996) History of cholecystectomy (~1996) History of excision of lesion (~2021) Family History Mother Diabetes Hypertension Father Diabetes Hypertension Hyperlipidemia Social History (Updated 02/02/23 @ 10:39 by Yazmin Lozano RN) Housing: House Are you a primary zoo caretaker to a significant other at home: No Do you presently have visiting nurse or other home services: No Alcohol intake: current Alcohol intake frequency: a few times a week Patient Tobacco Use Status: Current everyday Tobacco user Tobacco use type: Cigarette Cigarette Packs Per Day: 1 Cigarettes Per Day: 20.0 Years Smoked: 30+ Second Hand Smoke Exposure: Yes Substance Use Type: Marijuana service: No Current occupational status: retired and disabled Current occupational exposures/hazards: No Cognitive needs: No Hearing needs: No Vision needs: No Questionnaire Thrive Questionnaire Date Thrive assessed: 07/19/21 GELA-7 AMB Questionnaire GELA-7 Date GELA - 7 assessed: 07/19/21 Source: Developed by Drs. Gamaliel Medina, Donya Robbins, Amol Griffin and colleagues, with an educational eli from [employer]. Physical exam (Primary Care) Tobacco/Smoking Status: Tobacco use Status Tobacco use date assessed 12/28/22 12/28/22 10:31 Patient Tobacco Use Status Current everyday Tobacco 02/02/23 10:15 Tobacco use type Cigarette 02/02/23 10:15 Thrive Assessment: Date of Thrive Assessment Date Thrive assessed 07/19/21 12/28/22 10:24 Coding
--- NOTE | 2023-02-07 14:42 | A.OFFPC_ITS ---
Vital Signs 02/07/23 14:45 Height 5 ft 10 in Weight 264 lb 8 oz BMI 37.9 BP 110/60 Blood Pressure Location Rt brachial Position Sitting Pulse 73 Pulse Source Pulse Oximeter Pulse Oximetry (%) 92 Oxygen Delivery Method Room Air Intake Visit Reasons: Pre-op visit (general surgery) Allergies Opioids - Morphine Analogues Allergy (Unknown, Verified 02/07/23 14:47) unknown morphine Allergy (Verified 02/07/23 14:47) Itching, disoriented Tobacco use date assessed: 02/07/23 Dental Screening Dental Screen Date: 02/07/23 Did you have a dental visit in the last 12 months?: Yes Did you have a dental problem in the last 6 months where you did not have access to dental care?: No Was dental information given to patient?: Patient has dentist HPI Pre-op visit (general surgery) HPI Details Pt is here for a pre-op evaluation. He is scheduled to undergo an anterior cervical fusion at C3-4 on 02/16. He is also scheduled for an L3-4 and L4-5 decompression on 03/09. Pt had a stress test on 02/03, will make sure this was negative. Will order labs and do an EKG in office. [facility] Medical History (Updated 02/07/23 @ 15:03 by BUCKY Rg) Stage 3b chronic kidney disease (CKD) Use of cane as ambulatory aid Nicotine dependence, cigarettes, uncomplicated Diabetes (~2019) Depression Arthritis Sleep apnea Asthma Hypertension Surgical History (Updated 02/02/23 @ 10:32 by Yazmin Lozano RN) History of fusion of cervical spine Hx of cystoscopy Hx of lithotripsy History of liver biopsy (~1996) History of cholecystectomy (~1996) History of excision of lesion (~2021) Family History Mother Diabetes Hypertension Father Diabetes Hypertension Hyperlipidemia Social History Housing: House Are you a primary rn palliative care to a significant other at home: No Do you presently have visiting nurse or other home services: No Alcohol intake: current Alcohol intake frequency: a few times a week Patient Tobacco Use Status: Current everyday Tobacco user Tobacco use type: Cigarette Cigarette Packs Per Day: 0.75 Cigarettes Per Day: 15 Years Smoked: 30+ Second Hand Smoke Exposure: Yes Substance Use Type: Marijuana service: No Current occupational status: retired and disabled Current occupational exposures/hazards: No Cognitive needs: No Hearing needs: No Vision needs: No Questionnaire Thrive Questionnaire Date Thrive assessed: 07/19/21 GELA-7 AMB Questionnaire GELA-7 Date GELA - 7 assessed: 07/19/21 Source: Developed by Drs. Gamaliel Medina, Donya Robbins, Amol Griffin and colleagues, with an educational eli from [employer]. Review of Systems Const Denies chills and Denies fever(s) Eyes Denies blurry vision ENT Denies vertigo, Denies dizziness and Denies sore throat Card Denies chest pain at rest, Denies chest pain with activity, Denies diaphoresis, Denies dyspnea and Denies dyspnea on exertion Resp Denies cough, Denies dyspnea, Denies dyspnea on exertion and Denies wheezing GI Denies abdominal pain, Denies melena, Denies hematochezia, Denies constipation, Denies diarrhea and Denies loose stools Denies hematuria Musc Denies numbness and Denies tingling Skin/Breast Denies lesions Neuro Denies vertigo, Denies dizziness, Denies numbness and Denies tingling Psych Denies anxiety, Denies depression, Denies homicidal ideation, Denies suicidal ideation and Denies other (substance abuse) Aller/Immun Denies wheezing Physical exam (Primary Care) Vital Signs: Last Vital Signs Pulse 73 02/07/23 14:45 BP 110/60 02/07/23 14:45 Pulse Ox 92 02/07/23 14:45 Oxygen Delivery Method Room Air 02/07/23 14:45 BMI result Body Mass Index 37.9 Tobacco/Smoking Status: Tobacco use Status Tobacco use date assessed 02/07/23 02/07/23 14:52 Patient Tobacco Use Status Current everyday Tobacco 02/07/23 14:52 Tobacco use type Cigarette 02/07/23 14:52 Thrive Assessment: Date of Thrive Assessment Date Thrive assessed 07/19/21 02/07/23 14:52 Const General: cooperative Nutritional Appearance: obese Orientation/consciousness: patient oriented x3 Neck Neck: Yes no lymphadenopathy Resp Effort & Inspection: normal respiratory effort Auscultation: clear to auscultation bilaterally Cardio Rate: regular rate Rhythm: regular rhythm Heart sounds: S1 normal heart sound present, S2 normal heart sound present and no murmurs Neuro General: patient oriented x3 and moves all extremities Psych Appearance: grossly normal Mental Status: mental status grossly normal Speech and movement: Normal speech and movement present Affect: normal affect Attitude: cooperative Thought process: Normal thought process present Thought content: Normal thought content present Insight: Good insight present (Psych) Judgement: Good judgement present (Psych) Assessment and Plan Assessment & Plan (1) Pre-op evaluation: Code(s): Z01.818 - Encounter for other preprocedural examination Plan The patient agreed to the use of a site medical director for this encounter. Scribed for SYED Barrera-ANSUHKA by Katherine Major site medical director, on 02/07/2023 at 14:55 EST Orders: Orders AMB EKG-In Office Today Z01.818 - Encounter for other preprocedural examination Complete Blood Count Auto Diff Today Z01.818 - Encounter for other preprocedural examination Partial Thromboplastin Time Today Z01.818 - Encounter for other preprocedural examination Prothrombin Time INR Today Z01.818 - Encounter for other preprocedural examination Comprehensive Met. Panel Today Z01.818 - Encounter for other preprocedural examination Coding Level of Care Code Est Pt Prev Care 40-64y(19605) Diagnoses Pre-op evaluation Z01.818
[2023-02-07 14:45] VITALS: BP 110/60; PULSE 73; O2SAT 92; BMI 37.9
== END 2023-02-07 15:38 | disposition home or self-care (01) ==
PROVIDERS: PCP Nurse Practitioner Family; Visit Provider Nurse Practitioner Family
DX: Z01.818 Encounter for other preprocedural examination (principal)
CPT/HCPCS: 93000; 99214

== ENCOUNTER 2023-02-10 13:40 | Outpatient (REF) | payer OTHER, SELFPAY ==
[2023-02-10 16:04] LABS: MANUAL DIFF FLAG NO
[2023-02-10 16:09] LABS: Basophils Absolute Auto 0.1 X10*3/uL (0.0-0.2); Basophils Percent Auto 0.6 % (0-2); Eosinophils Absolute Auto 0.4 X10*3/uL (0.0-0.4); Eosinophils Percent Auto 4.2 % (0-4); Hematocrit 48.9 % (42.0-52.0); Hemoglobin 16.3 g/dl (14.0-18.0); Imm Gran Abs Auto 0.04 X10*3/uL (0.00-0.03); Imm Gran Pct Auto 0.4 % (0.0-0.4); Lymphocytes Absolute Auto 1.7 X10*3/uL (1.2-4.9); Lymphocytes Percent Auto 18.8 % (20-40); Mean Corpuscular HGB Conc 33.3 g/dl (31.0-36.0); Mean Corpuscular Hemoglobin 30.4 pg (27.0-33.0); Mean Corpuscular Volume 91.2 fL (80.0-98.0); Mean Platelet Volume 11.6 fL (9.4-12.4); Monocytes Absolute Auto 0.8 X10*3/uL (0.1-1.2); Monocytes Percent Auto 9.2 % (2-11); Neutrophils Absolute Auto 5.9 x10*3/uL (2.0-8.3); Neutrophils Percent Auto 66.8 % (45-73); Platelet Count 175 X10*3/uL (160-400); Red Blood Count 5.36 X10*6/uL (4.60-5.80); Red Cell Distribution Width 13.3 % (11.0-16.0); White Blood Count 8.9 X10*3/uL (4.8-10.8)
[2023-02-10 16:15] LABS: INTERNATIONAL NORM RATIO 0.9 (0.9-1.1); Prothrombin Time 10.7 SEC (11.1-13.3)
[2023-02-10 16:18] LABS: Partial Thromboplastin Time 31.6 SEC (26.0-36.4)
[2023-02-10 16:34] LABS: Alanine Aminotransferase 46 U/L (0-40); Albumin Level 4.2 g/dL (3.5-5.0); Alkaline Phosphatase 67 U/L (39-117); Anion Gap 15 (12-20); Aspartate Amino Transferase 21 U/L (5-37); Bilirubin Total 0.5 mg/dL (0.0-1.0); Blood Urea Nitrogen 26 mg/dL (9-16); Calcium 9.2 mg/dL (8.4-10.2); Carbon Dioxide 29 mmol/L (22-29); Chloride 103 mmol/L (96-108); Estimated Glomerular Filt Rate 55; Glucose Random 137 mg/dL (60-115); Sodium 144 mmol/L (135-145); Total Protein 6.7 g/dL (6.5-8.0)
== END 2023-02-10 13:41 | disposition home or self-care (01) ==
LOC: HO.HMGCLDS 13:40
PROVIDERS: PCP Nurse Practitioner Family; Visit Provider Nurse Practitioner Family
DX: Z01.818 Encounter for other preprocedural examination (principal)
CPT/HCPCS: 36415; 80053; 85025; 85610; 85730

== ENCOUNTER 2023-02-14 13:57 | Outpatient (REF) | payer OTHER, SELFPAY ==
[2023-02-14 16:36] LABS: Anion Gap 16 (12-20); Carbon Dioxide 29 mmol/L (22-29); Chloride 103 mmol/L (96-108); Potassium 3.6 mmol/L (3.3-5.1); Sodium 144 mmol/L (135-145)
== END 2023-02-14 13:58 | disposition home or self-care (01) ==
LOC: HO.HMGCLDS 13:57
PROVIDERS: PCP Nurse Practitioner Family; Visit Provider Nurse Practitioner Family
DX: E87.6 Hypokalemia (principal)
CPT/HCPCS: 36415; 80051

== ENCOUNTER 2023-02-16 10:27 | Day surgery (SDC) | payer OTHER, SELFPAY ==
[2023-02-07 09:11] VITALS: BMI 38.3
--- NOTE | 2023-02-15 08:38 | HO.ANESPROP2 ---
Documented by User: Noemy Cid NP 02/15/23 09:00 HPI - Anesthesia Eval Consult details Narrative: 57yo M for ?C3-4 Ant Cerv Discectomy w/ fusion PCP cleared Severe septal and severe basal asymmetric hypertrophy seen on ECHO. Nuc stress wnl. Pt not seen in PAT. Telephone assessment done by CARLITO Peck on med list but patient has not started rx. Waiting until after surgery PMFSH Active Problems Active Problems: All Active Problems (Updated 02/11/23 @ 12:[address] [facility] [place]) Hypokalemia (Acute) Pre-op evaluation (Acute) Cervical myelopathy (Acute) Leukocytosis (Acute) Leg swelling (Acute) Nerve root compression (Acute) Abnormal x-ray of lumbar spine (Acute) Chronic radicular pain of lower back (Acute) Elevated serum creatinine (Acute) Microalbuminuria (Acute) Elevated liver enzymes (Acute) Sciatica (Acute) Lower back pain (Acute) Scalp cyst (Acute) Mallet deformity of right middle finger (Acute) Abnormal EKG (Acute) Irregular heart beats (Acute) Diabetes (Acute ~2019) Nicotine dependence, cigarettes, uncomplicated (Acute) Past Medical History Medical History (Updated 02/11/23 @ 12:[address] [facility] [place]) Stage 3b chronic kidney disease (CKD) Use of cane as ambulatory aid Nicotine dependence, cigarettes, uncomplicated Diabetes (~2019) Depression Arthritis Sleep apnea Asthma Hypertension Family History Family History Mother Diabetes Hypertension Father Diabetes Hypertension Hyperlipidemia Surgical History Surgical History (Updated 02/02/23 @ 10:32 by Yazmin Lozano RN) History of fusion of cervical spine Hx of cystoscopy Hx of lithotripsy History of liver biopsy (~1996) History of cholecystectomy (~1996) History of excision of lesion (~2021) Social History Social History Housing: House Are you a primary childcare teacher to a significant other at home: No Do you presently have visiting nurse or other home services: No Alcohol intake: current Alcohol intake frequency: a few times a week Patient Tobacco Use Status: Current everyday Tobacco user Tobacco use type: Cigarette Cigarette Packs Per Day: 0.75 Cigarettes Per Day: 15 Years Smoked: 30+ Smoked in Last 30 Days: Yes Second Hand Smoke Exposure: Yes Use of substances other than those prescribed or required for medical reasons: Yes Substance Use Type: Marijuana Substance Use Frequency: Weekly Have you been hit, kicked, punched, or otherwise hurt by someone within the past year? If so, by whom?: No Are you DNR?: No Advance Directives: No Advance Directives Information Provided: Yes Advance Directives on File: No Recently lost weight without trying: No Nutrition Risks: No Nutritional Risk service: No Current occupational status: retired and disabled Current occupational exposures/hazards: No Cognitive needs: No Hearing needs: No Vision needs: No Meds Allergies Allergy/AdvReac Type Severity Reaction Status Date / Time Opioids - Morphine Analogues Allergy Unknown unknown Verified 02/07/23 14:47 morphine Allergy Itching, Verified 02/07/23 14:47 disoriented Home Medications Medication Instructions Recorded Confirmed Last Taken Type lancets #100 ea 07/15/20 12/28/22 Unknown History acetaminophen 500 mg tablet 1,000 mg PO QID PRN Pain 02/02/23 02/02/23 Unknown History clonidine HCl 0.2 mg tablet 0.2 mg PO BEDTIME 02/02/23 02/02/23 Unknown History lisinopril 40 mg tablet 40 mg PO BEDTIME 02/02/23 02/02/23 Unknown History sertraline 100 mg tablet (Zoloft) 100 mg PO BEDTIME 02/02/23 02/02/23 Unknown History tamsulosin 0.4 mg capsule 0.4 mg PO BEDTIME 02/02/23 02/02/23 Unknown History hydralazine 100 mg tablet 100 mg PO BID 02/07/23 Unknown History Exam Exam Date and Time: February 15, 2023 0838 Height,Weight and Vital Signs: Height 5 ft 10 in Weight 121.109 kg Pertinent Lab Results Pertinent Lab Results: Laboratory Tests 02/10/23 02/10/23 02/14/23 13:46 13:46 14:02 WBC 8.9 Hgb 16.3 Hct 48.9 Plt Count 175 Sodium 144 Potassium 3.6 Chloride 103 Carbon Dioxide BUN 26 H Creatinine 1.33 02/14/23 14:02 WBC Hgb Hct Plt Count Sodium Potassium Chloride Carbon Dioxide 29 BUN Creatinine Narrative Narrative: ECHO 12/2022 Conclusions: - The left ventricular systolic function is normal. The calculated ejection fraction is 63% by biplane method. - There is moderately increased left ventricular wall thickness. - There is severe septal and severe basal asymmetric hypertrophy. - No obvious valvular pathology seen on this study. Stress 12/2022 NM cardiolite stress test Impression: 1. Myocardial perfusion imaging study shows probably normal myocardial perfusion. 2. Gated LVEF is 55% during stress and rest. 3. Transient ischemic dilatation not present. EKG component of the test reported separately. EKG 12/2022 1st deg AV block Low voltage QRS Cannot r/o anterior infartct, age undetermined Assessment and Plan Assessment Anesthesia Assessment: Chart Reviewed Documented by User: Johnny Ledesma MD 02/16/23 11:40 [facility] Past Medical History Medical History (Updated 02/11/23 @ 12:52 by [facility]) Stage 3b chronic kidney disease (CKD) Use of cane as ambulatory aid Nicotine dependence, cigarettes, uncomplicated Diabetes (~2019) Depression Arthritis Sleep apnea Asthma Hypertension Family History Family History Mother Diabetes Hypertension Father Diabetes Hypertension Hyperlipidemia Family history of problems with anesthesia: No Surgical History Surgical History (Updated 02/02/23 @ 10:32 by Yazmin Lozano RN) History of fusion of cervical spine Hx of cystoscopy Hx of lithotripsy History of liver biopsy (~1996) History of cholecystectomy (~1996) History of excision of lesion (~2021) History of Problems with Anesthesia: No Social History Social History Housing: House Are you a primary childcare teacher to a significant other at home: No Do you presently have visiting nurse or other home services: No Alcohol intake: current Alcohol intake frequency: a few times a week Patient Tobacco Use Status: Current everyday Tobacco user Tobacco use type: Cigarette Cigarette Packs Per Day: 0.75 Cigarettes Per Day: 15 Years Smoked: 30+ Smoked in Last 30 Days: Yes Second Hand Smoke Exposure: Yes Use of substances other than those prescribed or required for medical reasons: Yes Substance Use Type: Marijuana Substance Use Frequency: Weekly Have you been hit, kicked, punched, or otherwise hurt by someone within the past year? If so, by whom?: No Are you DNR?: No Advance Directives: No Advance Directives Information Provided: Yes Advance Directives on File: No Recently lost weight without trying: No Nutrition Risks: No Nutritional Risk service: No Current occupational status: retired and disabled Current occupational exposures/hazards: No Cognitive needs: No Hearing needs: No Vision needs: No Meds Allergies Allergy/AdvReac Type Severity Reaction Status Date / Time Opioids - Morphine Analogues Allergy Unknown unknown Verified 02/07/23 14:47 morphine Allergy Itching, Verified 02/07/23 14:47 disoriented Home Medications Medication Instructions Recorded Confirmed Last Taken Type lancets #100 ea 07/15/20 12/28/22 Unknown History acetaminophen 500 mg tablet 1,000 mg PO QID PRN Pain 02/02/23 02/02/23 Unknown History clonidine HCl 0.2 mg tablet 0.2 mg PO BEDTIME 02/02/23 02/02/23 Unknown History lisinopril 40 mg tablet 40 mg PO BEDTIME 02/02/23 02/02/23 Unknown History sertraline 100 mg tablet (Zoloft) 100 mg PO BEDTIME 02/02/23 02/02/23 Unknown History tamsulosin 0.4 mg capsule 0.4 mg PO BEDTIME 02/02/23 02/02/23 Unknown History hydralazine 100 mg tablet 100 mg PO BID 02/07/23 Unknown History Exam Airway Mallampati Class: II TM Dist: <=3cm Neck ROM: Limited Heart: rrr Lungs: cta Other: Poor dentition Assessment and Plan Assessment Anesthesia Assessment: Anesthesia Plan Discussed and Smoking Cess. Discussed Final Anesthetic Review Family History of Problems with Anesthesia: No History of Problems with Anesthesia: No NPO: Yes ASA Class: III Final Preanesthetic Review: No Changes in Pt Med Stat, Meds/Allgs Chart Reviewed, Consent Obtained/Reviewed and Anes Risks/Benef Reviewed Patient Risk: Intermediate Procedure Risk: Intermediate Anesthetic Plan Anesthetic Plan: GA, Agree w/ Assess. and Plan and Other (HOCOM by US) Disposition: Standard PACU
[2023-02-16] VITALS (11 sets, daily range): BP systolic 138–160; BP diastolic 73–90; PULSE 69–94; RESP 16–20; TEMP 36.6–36.8; O2SAT 92–100
--- NOTE | ~2023-02-16 | FL_ITS ---
EXAMINATION: XR FLUOROSCOPY WITH IMAGES CLINICAL INFORMATION: C3-C4 ACDF with fusion. COMPARISON: Previous x-ray of the cervical spine January 31, 2023 TECHNIQUE: Fluoroscopy Supervised By: Dr. Bull Fernandes. Fluoroscopy Time: 0.0 minutes. Cumulative Dose: 0.534 mGy. DAP: 0.43522 Gycm2. Images: 2. FINDINGS: Images demonstrate new ACDF hardware at C3-C4. Existing lower cervical spine hardware not completely imaged. FL/FL guidance in OR IMPRESSION: Fluoroscopy guidance for cervical spine surgery
--- NOTE | 2023-02-16 07:08 | P.HPSUR_ITS ---
Pre-Procedural Eval Section A Date of Service: 02/16/23 Section B Chief Complaint: Disease of spinal cord, unspecified Allergies: Allergies Allergy/AdvReac Type Severity Reaction Status Date / Time Opioids - Morphine Analogues Allergy Unknown unknown Verified 02/07/23 14:47 morphine Allergy Itching, Verified 02/07/23 14:47 disoriented Review of Systems Sugical H&P ROS: Negative: Constitution, Cardiovascular, Respiratory, Neurological, Psychiatric, Hem-Onc, Allergic/Immunologic, Gastrointestinal, Genitourinary, Musculoskeletal, Integumentary, Endocrine and Eyes/Ears/ Nose/Throat Exam Surgical H&P Exam: Not Evaluated: HEENT, Not Evaluated: Heart, Not Evaluated: Lungs, Not Evaluated: Extremities, Not Evaluated: Abdomen, Not Evaluated: Skin and Not Evaluated: Neurological Plan Diagnosis/Plan: Unchanged I have reviewed the history and physical and performed a pertinent physical examination on my patient. No changes have occurred unless specified. Plan remains the same, C3-4 ACDF Time Spent With Patient Time: Total time managing care of this patient today _10___ minutes.
[2023-02-16 10:54] LABS: Glucose, Whole Blood 152 mg/dL (60-115)
[2023-02-16] MEDS: methocarbamoL 750 MG TABLET PO (10:54)
[2023-02-16] MEDS: Gabapentin 300 MG CAPSULE PO (10:54)
[2023-02-16] MEDS: Albuterol Sulfate (0.083%) 2.5 MG/3 ML VIAL.NEB INHALE (11:21)
--- NOTE | 2023-02-16 14:55 | W.PM.OPN ---
Operative Note Operative Note Date of Service: 02/16/23 Narrative: Preoperative Diagnosis: Cervical myelopathy Procedure: C3-4 Anterior discectomy, arthrodesis and implantation cage ; C3-4 anterior instrumentation ; local autograft; microscope Informed Consent was obtained for this operation. I have explained the nature, purpose and benefits of the operation. I have discussed the risks and benefit of the operation including possible complications or adverse events with patient/family. Alternative(s) were discussed with the patient with their relative benefits and risks as well as the consequences of not accepting the operation were included in obtaining consent. Surgeon: YASHIRA WISEMAN MD, PHD Procedure Assisted By: Daryl ZIMMER Description of Procedure: This 57-year-old male had a previous C4-C7 anterior diskectomy fusion done in another institution. He presented with neurogenic claudication will but during the exam we find signs of spinal cord compression. Additional MRI of the cervical spine showed severe spinal cord compression C3-C4. He was offered an anterior diskectomy and fusion of this level before we will address his lumbar stenosis. The procedure complications were explained. The patient was consented. The patient was brought to the operating room and endotracheally intubated. The patient was put in supine position with slight extension of the neck. Prep and drape was done followed by timeout. A mid cervical incision was made followed by opening of the platysma. The prevertebral fascia was reached following the natural planes while the physician assistant store manager trainee provided manual retraction. The prevertebral fascia was opened to expose the disc space. A spinal needle was placed in the disk space to confirm the correct level with xray. The longus colli muscles were released bilaterally and a self retaining retractor was inserted. Two [place] pins were placed in the C3-C4 vertebral bodies and distraction was give over the interspace. The discectomy was completed toward the posterior annulus of the disc. The microscope was brought in. The remainder of the discectomy was completed. The posterior ligament was opened and resected to expose the underlying dura. Osteophytes were resected from the body of C3-C4 to further decompress the spinal cord. The osteophytes were saved for autograft. Bilateral foraminotomies were done. The endplates were prepared after which a 6 mm cage filled with autograft was inserted into the disc space. A separate attached plate was locked down with 2 x 14 mm screws as anterior instrumentation. Final x-rays in AP and lateral projection showed a satisfactory position of the implant. The physician assistant store manager trainee took over. The [place] pin was removed. Hemostasis was done. He closed the incision in 2 layers with a 3-0 Vicryl. Steri-Strips used to approximate incision. An OpSite with Tegaderm was used to cover the incision. All sponge and needle counts were correct. Patient was extubated and transported in stable is to recovery room. Anesthesia: General Estimated Blood Loss (ml): 25 ml Duration of Surgery: 90 Postoperative Plan: Discharge home Complications: None
--- NOTE | 2023-02-16 15:12 | P.DS_ITS ---
DS: Providers Provider Date of Service: 02/16/23 Date of discharge: 02/16/23 Primary care physician: BUCKY Gasca Admitting clinician: Bull Fernandes DS: Diagnosis Discharge Diagnosis (1) Cervical myelopathy: Status: Acute DS: Summary Time Spent with Patient Time attestation: Total time managing care of this patient today ____ minutes. Discharge coordination time: Less than 30 minutes Quality: Safe Use of Opioids Does Pt have an Active Cancer Diagnosis on the Problem List?: No Quality: Stroke Does the patient have a stroke diagnosis?: No Physical Exam Vital Signs: Vital Signs: Last Vital Signs Temp 97.9 F 02/16/23 11:05 Pulse 69 02/16/23 11:21 Resp 18 02/16/23 11:21 BP 141/86 H 02/16/23 11:05 Pulse Ox 94 02/16/23 11:05 O2 Del Method Room Air 02/16/23 11:05 BMI result Body Mass Index 38.3 DS: Data Data Completed and Pending Labs on day of discharge: Laboratory Results - last 24 hr 02/16/23 02/16/23 10:51 11:07 POC Glucose 152 H Blood Type A Positive Antibody Screen NEGATIVE Discharge Plan Discharge Patient Disposition: Home, Self-Care Referrals: Ta Serrano FNP-BC [Primary Care Provider] - 1 Week Discharge Medications: New docusate sodium [Colace] 100 mg capsule 100 mg PO BID Qty: 20 0RF oxycodone 5 mg tablet 5 mg PO Q4H PRN (Reason: pain) Qty: 30 0RF Rx Instructions: Partial Fill upon patient request. Continued alcohol swabs [Alcohol Prep Pads] Pads, Medicated 1 pad topical BID Qty: 100 2RF (DME) blood-glucose meter [OneTouch Ultra2 Meter] [facility] [place] See Rx Instructions .ROUTE .MEDSUPPLY Qty: 1 0RF Rx Instructions: Use to check blood sugar twice daily or as needed (DME) blood sugar diagnostic Strip See Rx Instructions .ROUTE .MEDSUPPLY Qty: 100 2RF Rx Instructions: Onetouch test strips (DME) OneTouch Ultra Blue Test Strip Strip See Rx Instructions .ROUTE .MEDSUPPLY Qty: 50 2RF Rx Instructions: Use to test blood sugar twice daily or as needed (DME) lancets [OneTouch Delica Plus Lancet] 30 gauge misc See Rx Instructions .ROUTE .MEDSUPPLY Qty: 100 2RF Rx Instructions: Use to check blood sugar twice daily (DME) lancets Misc See Rx Instructions Not Applicable BID Qty: 100 Rx Instructions: As directed tizanidine 4 mg tablet 4 mg PO BID PRN (Reason: muscle spasticity) 30 Days Qty: 60 0RF Patient Comments: rarely uses carvedilol 25 mg tablet 25 mg PO BID 90 Days Qty: 180 1RF Rx Instructions: must administer with a meal/food nifedipine 30 mg tablet extended release 30 mg PO BID Qty: 180 1RF atorvastatin 10 mg tablet 10 mg PO BEDTIME Qty: 90 1RF hydrochlorothiazide 25 mg tablet 25 mg PO DAILY 90 Days Qty: 90 1RF Jardiance 10 mg tablet 10 mg PO DAILY Qty: 90 1RF gabapentin 100 mg capsule 200 mg PO TID 30 Days Qty: 180 0RF albuterol sulfate 90 mcg/actuation HFA aerosol inhaler 2 puff inhalation Q4-6H PRN (Reason: for wheezing) Qty: 8.5 4RF Patient Comments: has used daily for years metformin 1,000 mg tablet 1,000 mg PO BID Qty: 180 1RF Ozempic 0.25 mg or 0.5 mg (2 mg/3 mL) pen injector 0.5 mg subcut QWEEK 90 Days Qty: 9.568 2RF Patient Comments: has not started using yet Rx Instructions: 90 day supply potassium chloride 20 mEq tablet extended release 20 meq PO BID 3 Days Qty: 6 0RF sertraline [Zoloft] 100 mg tablet 100 mg PO BEDTIME clonidine HCl 0.2 mg tablet 0.2 mg PO BEDTIME Rx Instructions: Schedule next PCP appt for future refills lisinopril 40 mg tablet 40 mg PO BEDTIME acetaminophen 500 mg Tablet 1,000 mg PO QID PRN (Reason: Pain) tamsulosin 0.4 mg Capsule 0.4 mg PO BEDTIME hydralazine 100 mg tablet 100 mg PO BID Discontinued oxycodone 5 mg tablet 5 mg PO BID PRN (Reason: pain) 8 Days Qty: 16 0RF Patient Comments: rarely uses Rx Instructions: Partial Fill upon patient request. Discharge Orders: Discharge Order (Routine); Ordered 02/16/23 Ordered By: Daryl T Bush Diet: Advance to usual diet Activity on Discharge: As tolerated Activity Restrictions/Additional Instructions: After your spinal surgery we ask you to observe the following restrictions/guidelines: IT WAS DISCOVERED IN YOUR PREOP ECHO THAT YOU HAVE A PROBLEM WITH ENLARGED HEART, AND THIS REQUIRES FOLLOW UP AND REASSESSMENT BY CARDIOLOGY BEFORE WE CAN PROCEED WITH YOUR LUMBAR SURGERY. PLEASE FOLLOW UP WITH CARDIOLOGY TO DISCUSS IF ANY TREATMENT OR FURTHER TESTING NECESSARY Activity: It is normal to feel some discomfort as you increase your activity, but that will improve with time. We ask you avoid heavy lifting or acitivities that cause pain. As a general rule, 8lbs is a safe limit for lifting right after surgery. Walk as much as you feel comfortable but not to exhaustion. You will feel extra tired the first few days after surgery. Stay well hydrated. It is OK to walk up and down stairs You may return to driving when you are off narcotics (such as vicodin, oxycodone, dilaudid, etc), and you are back to normal functional capacity. If you have any concerns please check with office before driving. Return to work is specific to each patient and each surgery, so please speak with your doctor/PA at first follow up. Please bring paperwork such as FMLA at that time if you need it filled out. Medications: For optimum pain control, it is best to start with a combination of 500 mg of Tylenol every 4 hours with 600 mg of Motrin every 8 hours, and use narcotics as needed in between for breakthrough pain. We will give you a short supply of narcotics after surgery (usually one weeks worth). If you need more please call the office but do not use more than prescribed. You will need to give our office 48 hours notice if you need narcotics refilled and we do not fill narcotics on weekends or evenings. If you are on a narcotic, it is a good idea to take a stool softener such as colace or senna to avoid constipation If you take blood thinner such as aspirin, Plavix, Coumadin, Effient, Eliquis etc for conditions such as Afib, DVT, Pulmonary embolus, coronary disease, stents etc please speak with your surgeon about specific details as to when you can resume these medications. You can resume NSAIDs on post op day 1 (eg: Motrin, Naproxen, etc). Follow up: Please call the office, , after surgery to arrange a 3 week follow up for wound check. Wound Care: You may remove your dressing on the first day after surgery. You may leave open to air. Please do not remove the steri strips underneath. they will fall off on their own in one week. IT IS NORMAL FOR THE WOUND TO OOZE OR BE BLOODY FOR A FEW DAYS AFTER SURGERY. IF THIS HAPPENS JUST PLACE NEW DRESSING OVER IT TO AVOID STAINING CLOTHES. You may shower on post op day # 1 We ask that you do not let the water soak the wound. If it does get wet, just towel dry lightly. Please do not scrub your incision or place any type of chemical/ointment on the wound. No tub baths, pools or jacuzzis for one month. If you have any leaking or redness from your wound, or fevers, please call office
[2023-02-16] MEDS: HYDROmorphone HCl 0.5 MG/0.5 ML SYRINGE 0.25 MG IVPUSH (16:00)
[2023-02-16] MEDS: oxyCODONE HCl Immed Release 5 MG TABLET PO (16:40)
== END 2023-02-16 17:29 | disposition home or self-care (01) ==
PROVIDERS: PCP Nurse Practitioner Family; Visit Provider Neurological Surgery
PROC: (CPT 22551; principal; 2023-02-16 12:30)
DX: G95.9 Disease of spinal cord, unspecified (principal); G47.33 Obstructive sleep apnea (adult) (pediatric); E11.22 Type 2 diabetes mellitus with diabetic chronic kidney disease; I12.9 Hypertensive chronic kidney disease with stage 1 through stage 4 chronic kidney disease, or unspecified chronic kidney disease; N18.32 Chronic kidney disease, stage 3b; Z79.84 Long term (current) use of oral hypoglycemic drugs; Z99.89 Dependence on other enabling machines and devices; Z88.5 Allergy status to narcotic agent; Z98.1 Arthrodesis status; Z87.442 Personal history of urinary calculi; F17.210 Nicotine dependence, cigarettes, uncomplicated
CPT/HCPCS: 22551; 22853; 20936; 22845; 82947; 86850; 86900; 86901; 94640; C1713; J0131; J0690; J1100; J1170; J1885; J2405; J3010

== ENCOUNTER → 2023-02-16 10:27 | Outpatient (BNV) | payer OTHER, SELFPAY | PROVIDERS: PCP Nurse Practitioner Family; Visit Provider Neurological Surgery | DX: M50.01 Cervical disc disorder with myelopathy, high cervical region (principal); G95.9 Disease of spinal cord, unspecified | CPT/HCPCS: 20936; 22551; 22845; 22853; 99499 ==

== ENCOUNTER 2023-02-20 13:21 | Outpatient (AMB) | payer OTHER, SELFPAY ==
--- NOTE | 2023-02-20 13:27 | MHC.OFFVIS ---
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, cardiac arrhythmia Intake Note: NPV Slate Cutter Operator Required: No Accompanied by: Spouse Allergies Opioids - Morphine Analogues Allergy (Unknown, Verified 02/20/23 13:28) unknown morphine Allergy (Verified 02/20/23 13:28) Itching, disoriented Medication List - Last Reconciled 02/20/23 by Kyree Alvarez MD acetaminophen 1,000 mg PO QID PRN albuterol sulfate 90 mcg/actuation 2 puffs inhalation Q4-6H PRN alcohol swabs (Alcohol Prep Pads) 1 pad topical BID atorvastatin 10 mg PO BEDTIME blood sugar diagnostic Onetouch test strips blood sugar diagnostic (c-LEctaTouch Ultra Blue Test Strip) Use to test blood sugar twice daily or as needed blood-glucose meter (c-LEctaTouch Ultra2 Meter) Use to check blood sugar twice daily or as needed carvedilol 25 mg PO BID 90 days clonidine HCl 0.2 mg PO BEDTIME docusate sodium (Colace) 100 mg PO BID empagliflozin (Jardiance) 10 mg PO DAILY gabapentin 200 mg (2 x 100 mg) PO TID 30 days hydralazine 100 mg PO BID hydrochlorothiazide 25 mg PO DAILY 90 days lancets (c-LEctaTouch Delica Plus Lancet) Use to check blood sugar twice daily lancets As directed lisinopril 40 mg PO BEDTIME metformin 1,000 mg PO BID nifedipine ER 30 mg PO BID oxycodone 5 mg PO Q4H PRN semaglutide (Ozempic) 0.5 mg (0.736 mL) subcut QWEEK 90 days sertraline (Zoloft) 100 mg PO BEDTIME tamsulosin 0.4 mg PO BEDTIME tizanidine 4 mg PO BID PRN 30 days HPI HPI Comments History of Present Illness Details Pleasant 57 gentleman who is referred to us for perioperative cardiovascular risk assessment. He has spinal stenosis and disc prolapse and requires lower back surgery. He has cervical spine surgery 1 week ago and is recovering from that. He has background history of hypertension and is on multiple medications currently. He also has been following with Nephrology in the past. He also has diabetes. He is a smoker and smoking 9-10 cigarettes a day. He is saying that he has cut back on smoking. He saw anesthesia and was noted to have abnormal EKG showing anterior infarct. The said that his EKG has been abnormal for years and years and these changes are old. He had echocardiography performed in January which showed normal LV function but did show some basal in septal hypertrophy. He also had Lexiscan performed which was normal. Due to his back pain and radiculopathy he is unable to walk significantly and is currently quite limited. His symptoms dated back to October and have progressively worsened. In October before the symptoms started, he was doing fine and had no exertional chest discomfort or shortness of breath. He is on multiple medications for hypertension at this point. The is also asking whether the medications can be decreased. [facility] Medical History (Updated 02/20/23 @ 13:58 by Kyree Alvarez MD) Hypertension Stage 3b chronic kidney disease (CKD) Use of cane as ambulatory aid Nicotine dependence, cigarettes, uncomplicated Diabetes (~2019) Depression Arthritis Sleep apnea Asthma Surgical History History of fusion of cervical spine Hx of cystoscopy Hx of lithotripsy History of liver biopsy (~1996) History of cholecystectomy (~1996) History of excision of lesion (~2021) Family History Mother Diabetes Hypertension Father Diabetes Hypertension Hyperlipidemia Social History Housing: House Are you a primary family member caretaker to a significant other at home: No Do you presently have visiting nurse or other home services: No Alcohol intake: current Alcohol intake frequency: a few times a week Patient Tobacco Use Status: Current everyday Tobacco user Tobacco use type: Cigarette Cigarette Packs Per Day: 0.75 Cigarettes Per Day: 15 Years Smoked: 30+ Second Hand Smoke Exposure: Yes Substance Use Type: Marijuana service: No Current occupational status: retired and disabled Current occupational exposures/hazards: No Cognitive needs: No Hearing needs: No Vision needs: No Review of Systems Const Denies chills, Denies daytime sleepiness, Denies fatigue, Denies fever(s), Denies frequent falls, Denies night sweats, Denies snoring, Denies weakness, Denies weight gain and Denies weight loss Eyes Denies loss of vision ENT Denies dizziness and Denies hearing loss Card Denies chest pain, Denies chest pain with activity, Denies syncope, Denies rapid heart rate, Denies edema, Denies claudication, Denies leg edema, Denies lightheadedness, Denies palpitations, Denies dyspnea, Denies dyspnea on exertion and Denies orthopnea Resp Denies cough, Denies excessive phlegm production, Denies dyspnea, Denies dyspnea on exertion, Denies snoring and Denies wheezing GI Denies abdominal pain, Denies hematochezia, Denies change in bowel habits, Denies change in stool character, Denies heartburn, Denies nausea and Denies vomiting Denies hematuria, Denies dysuria and Denies urinary frequency Musc Denies arthralgias, Denies muscle weakness, Denies numbness and Denies tingling Skin/Breast Denies nail changes and Denies rash Neuro Denies Abnormal speech present, Denies dizziness, Denies syncope, Denies frequent falls, Denies loss of vision, Denies memory loss, Denies numbness, Denies tingling and Denies weakness Psych Denies depression and Denies memory loss Endo Denies fatigue and Denies palpitations Aller/Immun Denies wheezing Physical Exam Vital Signs: Last Vital Signs Pulse 62 02/20/23 13:29 BP 102/62 02/20/23 13:29 BMI result Body Mass Index 37.0 GENERAL APPEARANCE: in no acute distress, pleasant. NECK: no carotid bruit, no jugular venous distention. SKIN: Healing anterior cervical wound. HEART: no murmurs, regular rate and rhythm. LUNGS: clear to auscultation bilaterally. ABDOMEN: soft, nontender. EXTREMITIES: no edema. PERIPHERAL PULSES: equal. NEUROLOGIC: No gross deficits, AAO X 3 Neuro Speech: No Abnormal speech present Assessment & Plan Assessment & Plan (1) Preop cardiovascular exam: Code(s): Z01.810 - Encounter for preprocedural cardiovascular examination (2) Hypertension: Code(s): I10 - Essential (primary) hypertension (3) Abnormal EKG: Code(s): R94.31 - Abnormal electrocardiogram [ECG] [EKG] Plan 57-year-old gentleman who is here for perioperative cardiovascular risk assessment for lower back surgery. He is quite limited due to back pain and radiculopathy and needs the surgery. His EKG has shown previously anterior infarct and these changes are old. His echocardiography and nuclear stress test did not show any evidence of myocardial infarction. He does have some septal and basal hypertrophy but has been hypertensive for long time. He is intermediate risk for perioperative cardiovascular complications. His carvedilol should not be interrupted in the perioperative period. Clonidine can cause reflex hypertension when abruptly stopped, please avoid holding clonidine in the perioperative period. He will see us back in 3-4 months. Thank you for allowing me to participate in the care of your patient. Please feel free to contact me if you have any questions. Coding Level of Care Code New Pt Level 4 (61193) Diagnoses Preop cardiovascular exam Z01.810 Hypertension I10 Abnormal EKG R94.31
[2023-02-20 13:29] VITALS: BP 102/62; PULSE 62; BMI 37.0
== END 2023-02-20 13:56 | disposition home or self-care (01) ==
PROVIDERS: PCP Nurse Practitioner Family; Visit Provider Internal Medicine Cardiovascular Disease
DX: Z01.810 Encounter for preprocedural cardiovascular examination (principal); I10 Essential (primary) hypertension; R94.31 Abnormal electrocardiogram [ECG] [EKG]
CPT/HCPCS: 99204

== ENCOUNTER → 2023-02-20 13:21 | Outpatient (BNVA) | payer OTHER, SELFPAY | PROVIDERS: PCP Nurse Practitioner Family; Visit Provider Internal Medicine Cardiovascular Disease ==

== ENCOUNTER 2023-03-02 10:32 | Day surgery (SDC) | payer OTHER, SELFPAY ==
[2023-02-02 10:15] VITALS: BMI 38.3
--- NOTE | 2023-03-01 08:55 | HO.ANESPROP2 ---
Documented by User: Noemy Cid NP 03/01/23 08:57 HPI - Anesthesia Eval Consult details Narrative: 57yo M for ?L3-4,L4-5 Lumbar decompression s/p C3-4 Ant Cerv Discectomy w/ fusion 02/17/2023 with GA-ETT 8 PCP cleared Severe septal and severe basal asymmetric hypertrophy seen on ECHO. Nuc stress wnl. Pt not seen in PAT. Telephone assessment done by CARLITO Peck on med list but patient has not started rx. Waiting until after surgery PMFSH Active Problems Active Problems: All Active Problems (Updated 02/20/23 @ 13:58 by Kyree Alvarez MD) Post-operative state (Acute) Hypertension (Acute) Preop cardiovascular exam (Acute) Hypokalemia (Acute) Pre-op evaluation (Acute) Cervical myelopathy (Acute) Leukocytosis (Acute) Leg swelling (Acute) Nerve root compression (Acute) Abnormal x-ray of lumbar spine (Acute) Chronic radicular pain of lower back (Acute) Elevated serum creatinine (Acute) Microalbuminuria (Acute) Elevated liver enzymes (Acute) Sciatica (Acute) Lower back pain (Acute) Scalp cyst (Acute) Mallet deformity of right middle finger (Acute) Abnormal EKG (Acute) Irregular heart beats (Acute) Diabetes (Acute ~2020) Nicotine dependence, cigarettes, uncomplicated (Acute) Past Medical History Medical History Hypertension Stage 3b chronic kidney disease (CKD) Use of cane as ambulatory aid Nicotine dependence, cigarettes, uncomplicated Diabetes (~2019) Depression Arthritis Sleep apnea Asthma Family History Family History Mother Diabetes Hypertension Father Diabetes Hypertension Hyperlipidemia Family history of problems with anesthesia: No Surgical History Surgical History History of fusion of cervical spine Hx of cystoscopy Hx of lithotripsy History of liver biopsy (~1996) History of cholecystectomy (~1996) History of excision of lesion (~2021) History of Problems with Anesthesia: No Social History Social History Housing: House Are you a primary care transition coordinator to a significant other at home: No Do you presently have visiting nurse or other home services: No Alcohol intake: current Alcohol intake frequency: a few times a week Patient Tobacco Use Status: Current everyday Tobacco user Tobacco use type: Cigarette Cigarette Packs Per Day: 0.75 Cigarettes Per Day: 15 Years Smoked: 30+ Smoked in Last 30 Days: Yes Second Hand Smoke Exposure: Yes Use of substances other than those prescribed or required for medical reasons: Yes Substance Use Type: Marijuana Substance Use Frequency: Weekly Have you been hit, kicked, punched, or otherwise hurt by someone within the past year? If so, by whom?: No Are you DNR?: No Advance Directives: No Advance Directives Information Provided: Yes Advance Directives on File: No Recently lost weight without trying: No Nutrition Risks: No Nutritional Risk service: No Current occupational status: retired and disabled Current occupational exposures/hazards: No Cognitive needs: No Hearing needs: No Vision needs: No Meds Allergies Allergy/AdvReac Type Severity Reaction Status Date / Time Opioids - Morphine Analogues Allergy Unknown unknown Verified 03/02/23 10:50 morphine Allergy Itching, Verified 03/02/23 10:50 disoriented Home Medications Medication Instructions Recorded Confirmed Last Taken Type lancets #100 ea 07/15/20 02/20/23 Unknown History clonidine HCl 0.2 mg tablet 0.2 mg PO BEDTIME 02/02/23 03/02/23 03/01/23 History sertraline 100 mg tablet (Zoloft) 100 mg PO BEDTIME 02/02/23 02/20/23 Unknown History tamsulosin 0.4 mg capsule 0.4 mg PO BEDTIME 02/02/23 02/20/23 Unknown History hydralazine 100 mg tablet 100 mg PO BID 02/07/23 03/02/23 03/01/23 History acetaminophen 500 mg tablet 1,000 mg PO QID PRN Pain 02/20/23 02/20/23 Unknown History Exam Exam Date and Time: March 01, 2023 0855 Height,Weight and Vital Signs: Height 5 ft 10 in Weight 121.109 kg Pertinent Lab Results Pertinent Lab Results: Laboratory Tests 02/10/23 02/10/23 02/14/23 13:46 13:46 14:02 WBC 8.9 Hgb 16.3 Hct 48.9 Plt Count 175 Sodium 144 Potassium 3.6 Chloride 103 Carbon Dioxide BUN 26 H Creatinine 1.33 02/14/23 14:02 WBC Hgb Hct Plt Count Sodium Potassium Chloride Carbon Dioxide 29 BUN Creatinine Narrative Narrative: ECHO 12/2022 Conclusions: - The left ventricular systolic function is normal. The calculated ejection fraction is 63% by biplane method. - There is moderately increased left ventricular wall thickness. - There is severe septal and severe basal asymmetric hypertrophy. - No obvious valvular pathology seen on this study. Stress 12/2022 NM cardiolite stress test Impression: 1. Myocardial perfusion imaging study shows probably normal myocardial perfusion. 2. Gated LVEF is 55% during stress and rest. 3. Transient ischemic dilatation not present. EKG component of the test reported separately. EKG 12/2022 1[address] AV block Low voltage QRS Cannot r/o anterior infartct, age undetermined Assessment and Plan Assessment Anesthesia Assessment: Chart Reviewed Final Anesthetic Review Family History of Problems with Anesthesia: No History of Problems with Anesthesia: No Documented by User: Joe Medina MD 03/02/23 15:05 HPI - Anesthesia Eval Consult details Narrative: 57yo M for ?L3-4,L4-5 Lumbar decompression s/p C3-4 Ant Cerv Discectomy w/ fusion 02/17/2023 with GA-ETT 8 PCP cleared Severe septal and severe basal asymmetric hypertrophy seen on ECHO. Nuc stress wnl. Seen by Cardiology , as per Dr Alvarez can proceed with Intermediate risk . Discussed with the patient , he understands the increased risk around the periopertaive period and would like to proceed . Pt not seen in PAT. Telephone assessment done by CARLITO Peck on med list but patient has not started rx. Waiting until after surgery [facility] Past Medical History Medical History Hypertension Stage 3b chronic kidney disease (CKD) Use of cane as ambulatory aid Nicotine dependence, cigarettes, uncomplicated Diabetes (~2019) Depression Arthritis Sleep apnea Asthma Family History Family History Mother Diabetes Hypertension Father Diabetes Hypertension Hyperlipidemia Surgical History Surgical History History of fusion of cervical spine Hx of cystoscopy Hx of lithotripsy History of liver biopsy (~1996) History of cholecystectomy (~1996) History of excision of lesion (~2021) Social History Social History Housing: House Are you a primary care transition coordinator to a significant other at home: No Do you presently have visiting nurse or other home services: No Alcohol intake: current Alcohol intake frequency: a few times a week Patient Tobacco Use Status: Current everyday Tobacco user Tobacco use type: Cigarette Cigarette Packs Per Day: 0.75 Cigarettes Per Day: 15 Years Smoked: 30+ Smoked in Last 30 Days: Yes Second Hand Smoke Exposure: Yes Use of substances other than those prescribed or required for medical reasons: Yes Substance Use Type: Marijuana Substance Use Frequency: Weekly Have you been hit, kicked, punched, or otherwise hurt by someone within the past year? If so, by whom?: No Are you DNR?: No Advance Directives: No Advance Directives Information Provided: Yes Advance Directives on File: No Recently lost weight without trying: No Nutrition Risks: No Nutritional Risk service: No Current occupational status: retired and disabled Current occupational exposures/hazards: No Cognitive needs: No Hearing needs: No Vision needs: No Meds Allergies Allergy/AdvReac Type Severity Reaction Status Date / Time Opioids - Morphine Analogues Allergy Unknown unknown Verified 03/02/23 10:50 morphine Allergy Itching, Verified 03/02/23 10:50 disoriented Home Medications Medication Instructions Recorded Confirmed Last Taken Type lancets #100 ea 07/15/20 02/20/23 Unknown History clonidine HCl 0.2 mg tablet 0.2 mg PO BEDTIME 02/02/23 03/02/23 03/01/23 History sertraline 100 mg tablet (Zoloft) 100 mg PO BEDTIME 02/02/23 02/20/23 Unknown History tamsulosin 0.4 mg capsule 0.4 mg PO BEDTIME 02/02/23 02/20/23 Unknown History hydralazine 100 mg tablet 100 mg PO BID 02/07/23 03/02/23 03/01/23 History acetaminophen 500 mg tablet 1,000 mg PO QID PRN Pain 02/20/23 02/20/23 Unknown History Exam Airway Mallampati Class: III Partial: Upper and Lower Loose/Missing/Broken Teeth: Yes Assessment and Plan Assessment Anesthesia Assessment: Anesthesia Plan Discussed Final Anesthetic Review NPO: Yes ASA Class: IV Final Preanesthetic Review: Meds/Allgs Chart Reviewed, Consent Obtained/Reviewed and Anes Risks/Benef Reviewed Patient Risk: High Procedure Risk: Intermediate Anesthetic Plan Anesthetic Plan: GA and Agree w/ Assess. and Plan Disposition: Standard PACU
[2023-03-02] VITALS (8 sets, daily range): BP systolic 121–147; BP diastolic 68–89; PULSE 68–107; RESP 16–18; TEMP 36.1–36.4; O2SAT 94–99
--- NOTE | ~2023-03-02 | FL_ITS ---
EXAMINATION: XR FLUOROSCOPY WITH IMAGES CLINICAL INFORMATION: L3-L4, L4-L5 decompression. COMPARISON: None available. TECHNIQUE: Fluoroscopy Supervised By: Dr. Bull Fernandes. Fluoroscopy Time: Less than 0.1 minute. Cumulative Dose: 4.17 mGy. DAP: 1.13 Gycm2. Images: 2. FINDINGS: Images demonstrate surgical instruments and probe projecting over the posterior elements of L4 FL/FL guidance in OR IMPRESSION: Fluoroscopy guidance for lumbar spine surgery
--- NOTE | 2023-03-02 07:04 | MHC.SHP ---
Pre-Procedural Eval Section A Date of Service: 03/02/23 Section B Chief Complaint: Spinal stenosis, lumbar region without neurogenic Allergies: Allergies Allergy/AdvReac Type Severity Reaction Status Date / Time Opioids - Morphine Analogues Allergy Unknown unknown Verified 02/20/23 13:28 morphine Allergy Itching, Verified 02/20/23 13:28 disoriented Review of Systems Sugical H&P ROS: Negative: Constitution, Cardiovascular, Respiratory, Neurological, Psychiatric, Hem-Onc, Allergic/Immunologic, Gastrointestinal, Genitourinary, Musculoskeletal, Integumentary, Endocrine and Eyes/Ears/Nose/Throat Exam Surgical H&P Exam: Not Evaluated: HEENT, Not Evaluated: Heart, Not Evaluated: Lungs, Not Evaluated: Extremities, Not Evaluated: Abdomen, Not Evaluated: Skin and Not Evaluated: Neurological Plan Diagnosis/Plan: Unchanged I have reviewed the history and physical and performed a pertinent physical examination on my patient. No changes have occurred unless specified. plan remains the same, L3-4, L4-5 lumbar decompression. Time Spent With Patient Time: Total time managing care of this patient today _10___ minutes.
[2023-03-02] MEDS: Albuterol Sulfate (0.083%) 2.5 MG/3 ML VIAL.NEB INHALE (11:11)
[2023-03-02] MEDS: methocarbamoL 750 MG TABLET PO (11:15)
[2023-03-02] MEDS: Gabapentin 300 MG CAPSULE PO (11:15)
[2023-03-02] MEDS: Lactated Ringers 1,000 ML 100 ML IVCONT (11:15)
[2023-03-02 11:59] LABS: Glucose, Whole Blood 140 mg/dL (60-115)
--- NOTE | 2023-03-02 13:40 | PC.NURSE ---
Pt given updraft treatment by respiratory for notable wheezing. Dr Medina aware.
--- NOTE | 2023-03-02 14:13 | PM.DS ---
DS: Providers Provider Date of Service: 03/02/23 Date of discharge: 03/02/23 Primary care physician: BUCKY Gasca Admitting clinician: Bull Fernandes DS: Diagnosis Discharge Diagnosis (1) Nerve root compression: Status: Acute DS: Summary Time Attestation Discharge coordination time: Less than 30 minutes Quality: Safe Use of Opioids Does Pt have an Active Cancer Diagnosis on the Problem List?: No Quality: Stroke Does the patient have a stroke diagnosis?: No Physical Exam Vital Signs: Vital Signs: Last Vital Signs Temp 97.5 F 03/02/23 11:05 Pulse 107 H 03/02/23 11:15 Resp 16 03/02/23 11:15 BP 125/70 03/02/23 11:05 Pulse Ox 94 03/02/23 11:05 O2 Del Method Room Air 03/02/23 11:05 BMI result Body Mass Index 38.3 DS: Data Data Completed and Pending Labs on day of discharge: Laboratory Results - last 24 hr 03/02/23 11:42 POC Glucose 140 H Discharge Plan Discharge Patient Disposition: Home, Self-Care Referrals: Ta Serrano FNP-BC [Primary Care Provider] - 1 Week Discharge Medications: New oxycodone 5 mg tablet See Rx Instructions .ROUTE .COMPLEX PRN (Reason: pain) Qty: 40 0RF Rx Instructions: 1-2 tabs po q 4 hours prn pain Partial Fill upon patient request. Continued alcohol swabs [Alcohol Prep Pads] Pads, Medicated 1 pad topical BID Qty: 100 2RF (DME) blood-glucose meter [OneTouch Ultra2 Meter] Misc See Rx Instructions .ROUTE .MEDSUPPLY Qty: 1 0RF Rx Instructions: Use to check blood sugar twice daily or as needed (DME) blood sugar diagnostic Strip See Rx Instructions .ROUTE .MEDSUPPLY Qty: 100 2RF Rx Instructions: Onetouch test strips (DME) OneTouch Ultra Blue Test Strip Strip See Rx Instructions .ROUTE .MEDSUPPLY Qty: 50 2RF Rx Instructions: Use to test blood sugar twice daily or as needed (DME) lancets [OneTouch Delica Plus Lancet] 30 gauge misc See Rx Instructions .ROUTE .MEDSUPPLY Qty: 100 2RF Rx Instructions: Use to check blood sugar twice daily (DME) lancets Misc See Rx Instructions Not Applicable BID Qty: 100 Rx Instructions: As directed tizanidine 4 mg tablet 4 mg PO BID PRN (Reason: muscle spasticity) 30 Days Qty: 60 0RF Patient Comments: rarely uses carvedilol 25 mg tablet 25 mg PO BID 90 Days Qty: 180 1RF Rx Instructions: must administer with a meal/food nifedipine 30 mg tablet extended release 30 mg PO BID Qty: 180 1RF atorvastatin 10 mg tablet 10 mg PO BEDTIME Qty: 90 1RF hydrochlorothiazide 25 mg tablet 25 mg PO DAILY 90 Days Qty: 90 1RF Jardiance 10 mg tablet 10 mg PO DAILY Qty: 90 1RF gabapentin 100 mg capsule 200 mg PO TID 30 Days Qty: 180 0RF albuterol sulfate 90 mcg/actuation HFA aerosol inhaler 2 puff inhalation Q4-6H PRN (Reason: for wheezing) Qty: 8.5 4RF Patient Comments: has used daily for years metformin 1,000 mg tablet 1,000 mg PO BID Qty: 180 1RF Ozempic 0.25 mg or 0.5 mg (2 mg/3 mL) pen injector 0.5 mg subcut QWEEK 90 Days Qty: 9.568 2RF Patient Comments: has not started using yet Rx Instructions: 90 day supply lisinopril 40 mg tablet 40 mg PO DAILY Qty: 90 0RF sertraline [Zoloft] 100 mg tablet 100 mg PO BEDTIME clonidine HCl 0.2 mg tablet 0.2 mg PO BEDTIME Rx Instructions: Schedule next PCP appt for future refills tamsulosin 0.4 mg Capsule 0.4 mg PO BEDTIME acetaminophen 500 mg tablet 1,000 mg PO QID PRN (Reason: Pain) hydralazine 100 mg tablet 100 mg PO BID Discontinued oxycodone 5 mg tablet 5 mg PO Q4H PRN (Reason: pain) Qty: 30 0RF Rx Instructions: Partial Fill upon patient request. Discharge Orders: Discharge Order (Routine); Ordered 03/02/23 Ordered By: Daryl Bush Diet: Advance to usual diet Activity on Discharge: As tolerated Activity Restrictions/Additional Instructions: After your spinal surgery we ask you to observe the following restrictions/guidelines: Activity: It is normal to feel some discomfort as you increase your activity, but that will improve with time. We ask you avoid heavy lifting or acitivities that cause pain. As a general rule, 8lbs is a safe limit for lifting right after surgery. Walk as much as you feel comfortable but not to exhaustion. You will feel extra tired the first few days after surgery. Stay well hydrated. It is OK to walk up and down stairs You may return to driving when you are off narcotics (such as vicodin, oxycodone, dilaudid, etc), and you are back to normal functional capacity. If you have any concerns please check with office before driving. Return to work is specific to each patient and each surgery, so please speak with your doctor/PA at first follow up. Please bring paperwork such as FMLA at that time if you need it filled out. Medications: For optimum pain control, it is best to start with a combination of 500 mg of Tylenol every 4 hours with 600 mg of Motrin every 8 hours, and use narcotics as needed in between for breakthrough pain. We will give you a short supply of narcotics after surgery (usually one weeks worth). If you need more please call the office but do not use more than prescribed. You will need to give our office 48 hours notice if you need narcotics refilled and we do not fill narcotics on weekends or evenings. If you are on a narcotic, it is a good idea to take a stool softener such as colace or senna to avoid constipation If you take blood thinner such as aspirin, Plavix, Coumadin, Effient, Eliquis etc for conditions such as Afib, DVT, Pulmonary embolus, coronary disease, stents etc please speak with your surgeon about specific details as to when you can resume these medications. You can resume NSAIDs on post op day 1 (eg: Motrin, Naproxen, etc). Follow up: Please call the office, , after surgery to arrange a 3 week follow up for wound check. Wound Care: You may remove your dressing on the first day after surgery. ?You may ?leave open to air. Please do not remove the steri strips underneath. they will fall off on their own in one week. IT IS NORMAL FOR THE WOUND TO OOZE OR BE BLOODY FOR A FEW DAYS AFTER SURGERY. ?IF THIS HAPPENS JUST PLACE NEW DRESSING OVER IT TO AVOID STAINING CLOTHES. You may shower on post op day # 1 We ask that you do not let the water soak the wound. If it does get wet, just towel dry lightly. Please do not scrub your incision or place any type of chemical/ointment on the wound. No tub baths, pools or jacuzzis for one month. If you have any leaking or redness from your wound, or fevers, please call office
--- NOTE | 2023-03-02 14:41 | P.OP_ITS ---
Operative Note Operative Note Date of Service: 03/02/23 Narrative: Preoperative Diagnosis: L3-4, L4-5 spinal stenosis/lateral recess stenosis/neural foraminal stenosis Operation: Bilateral L3-4, L4-5Laminotomy, Partial facetectomy and foraminotomy with use of microscope through a left-sided approach Consent Informed Consent was obtained for this operation. I have explained the nature, purpose and benefits of the operation. I have discussed the risks and benefit of the operation including possible complications or adverse events with patient/family. Alternative(s) were discussed with the patient with their relative benefits and risks as well as the consequences of not accepting the operation were included in obtaining consent. Surgeon: YASHIRA WISEMAN MD, PHD Procedure Assisted By: Daryl Buitrago Description of Procedure this 57-year-old male is suffering from neurogenic claudication due to lumbar spinal stenosis L3-4 and L4-5. The patient was offered a decompression. The procedure complications were explained. The patient was consented. The patient was brought to the operating room and endotracheally intubated. The patient was turned in prone position on the Neal frame. Prep and drape was done followed by timeout. The Physician actuarial assistant provided access. A mid lumbar incision was made followed by release of the paravertebral muscle on the left side to expose the L3-4, L4-5 laminae and facet joints. An intraoperative x-ray was obtained to confirm the correct level. The microscope was brought in. I took over the procedure. The high-speed drill was used to do a left L3-4 L4-5 rj laminotomy until flavum ligament was reached. I decided to 1st complete the L3-4 level.A 2. Kerrison was used to expand the laminotomy near flush to the pedicles and to include a partial facetectomy. The flavum and was opened and resected with a 3. Kerrison to decompress the underlying thecal sac. The flavum ligament was removed to decompress the lateral recess and the exiting L4 nerve root. the patient was turned contralaterally after which her undercut the spinous process and decompress the lateral recess and the nerve root by removing flavum ligament and by performing a partial facetectomy. A long nerve hook could be easily passed along the medial side of the pedicles as a sign of adequate decompression. then attention was turned to the L4-5 level. The left L4-5 laminotomy years extended flexed to the pedicles. Partial facetectomy was done. The L5 nerve root was identified and decompressed over the trajectory in the lateral recess. Patient was turned contralaterally and the contralateral side was decompressed as well after undercutting of the spinous process. The microscope was removed. Hemostasis was done. The physician actuarial assistant close the Incision in 2 layers. Steri-Strips were used to approximate incision. An OpSite with Tegaderm was used to cover the incision. All sponge needle counts were correct. Patient was extubated and transported in stable is to recovery room. Anesthesia: General Estimated Blood Loss (ml): 25 mL Complications: None Duration of Surgery: Under 60 Minutes Postoperative Plan: Discharge to home
== END 2023-03-02 15:40 | disposition home or self-care (01) ==
PROVIDERS: PCP Nurse Practitioner Family; Visit Provider Neurological Surgery
PROC: (CPT 63047; principal; 2023-03-02 12:30)
DX: M48.062 Spinal stenosis, lumbar region with neurogenic claudication (principal); G95.9 Disease of spinal cord, unspecified; R26.2 Difficulty in walking, not elsewhere classified; G47.33 Obstructive sleep apnea (adult) (pediatric); I12.9 Hypertensive chronic kidney disease with stage 1 through stage 4 chronic kidney disease, or unspecified chronic kidney disease; E11.22 Type 2 diabetes mellitus with diabetic chronic kidney disease; J45.909 Unspecified asthma, uncomplicated; N18.32 Chronic kidney disease, stage 3b; Z79.85 Long-term (current) use of injectable non-insulin antidiabetic drugs; Z79.84 Long term (current) use of oral hypoglycemic drugs; Z99.89 Dependence on other enabling machines and devices; Z98.1 Arthrodesis status; Z98.890 Other specified postprocedural states; Z88.5 Allergy status to narcotic agent; F17.210 Nicotine dependence, cigarettes, uncomplicated; F12.90 Cannabis use, unspecified, uncomplicated; R94.31 Abnormal electrocardiogram [ECG] [EKG]
CPT/HCPCS: 63047; 63048; 82947; 94640; J0131; J0690; J1100; J1885; J2250; J2405; J3010

== ENCOUNTER → 2023-03-02 10:32 | Outpatient (BNV) | payer OTHER, SELFPAY | PROVIDERS: PCP Nurse Practitioner Family; Visit Provider Physician Assistant | DX: M48.061 Spinal stenosis, lumbar region without neurogenic claudication (principal); G54.9 Nerve root and plexus disorder, unspecified | CPT/HCPCS: 63047; 63048; 99499 ==

== ENCOUNTER 2023-03-17 15:22 | Outpatient (AMB) | payer OTHER, SELFPAY ==
--- NOTE | 2023-03-17 15:38 | A.SPINEOV_ITS ---
Intake Intake Visit Reasons: 1st post op Allergies Opioids - Morphine Analogues Allergy (Unknown, Verified 03/02/23 10:50) unknown morphine Allergy (Verified 03/02/23 10:50) Itching, disoriented Assessment & Plan Assessment & Plan (1) Status post lumbar spine surgery for decompression of spinal cord: Code(s): Z98.890 - Other specified postprocedural states Plan Procedure: Bilateral L3-4, L4-5Laminotomy, Partial facetectomy and foraminotomy Zackery comes in today for his 1st postoperative visit. He reports he is very satisfied with the surgery and feels much better than he did preoperatively. The patient reports he is up walking around and completing the majority of his ADLs. He states that he feels like he is fixed and no longer has significant limitations when going through his day-to-day life. He also inquired about his intraoperative x-rays which we reviewed with him. We also extensively discussed healing course and limitations moving forward. No neurological deficits. Sensation grossly intact. Patient is able to ambulate well, rises from a seated position without difficulty. Anterior incision site is closed, well healing, with no signs of drainage. We will follow-up with the patient in 6 weeks for his 2nd postoperative visit. At that time we will get x-rays to review with the patient. Nagi Fernandes MD,PhD [facility] Coding Level of Care Code Global (28832) Diagnoses Status post lumbar spine surgery for decompression of spinal cord Z98.890
== END 2023-03-17 15:41 | disposition home or self-care (01) ==
PROVIDERS: PCP Nurse Practitioner Family; Visit Provider Physician Assistant
DX: Z98.890 Other specified postprocedural states (principal)
CPT/HCPCS: 99024

== ENCOUNTER → 2023-03-17 15:22 | Outpatient (BNVA) | payer OTHER, SELFPAY | PROVIDERS: PCP Nurse Practitioner Family; Visit Provider Physician Assistant ==

== ENCOUNTER → 2023-04-26 13:18 | Outpatient (BNVA) | payer OTHER, SELFPAY | PROVIDERS: PCP Nurse Practitioner Family; Visit Provider Physician Assistant ==

== ENCOUNTER 2023-04-28 14:26 | Outpatient (REF) | payer OTHER, SELFPAY | END 2023-04-28 14:27 | disposition home or self-care (01) | LOC: HO.HOSX 14:26 | PROVIDERS: Visit Provider Physician Assistant | DX: Z13.89 Encounter for screening for other disorder (principal) ==

== ENCOUNTER 2023-05-02 15:08 | Outpatient (REF) | payer OTHER, SELFPAY ==
[2023-05-02 16:34] LABS: MANUAL DIFF FLAG NO
[2023-05-02 17:07] LABS: Basophils Percent Auto 0.4 % (0-2); Eosinophils Absolute Auto 0.4 X10*3/uL (0.0-0.4); Eosinophils Percent Auto 3.6 % (0-4); Hematocrit 51.9 % (42.0-52.0); Hemoglobin 16.8 g/dl (14.0-18.0); Imm Gran Abs Auto 0.05 X10*3/uL (0.00-0.03); Imm Gran Pct Auto 0.5 % (0.0-0.4); Lymphocytes Absolute Auto 1.6 X10*3/uL (1.2-4.9); Mean Corpuscular HGB Conc 32.4 g/dl (31.0-36.0); Mean Corpuscular Hemoglobin 30.4 pg (27.0-33.0); Mean Platelet Volume 11.5 fL (9.4-12.4); Monocytes Absolute Auto 0.9 X10*3/uL (0.1-1.2); Monocytes Percent Auto 8.3 % (2-11); Neutrophils Absolute Auto 7.5 x10*3/uL (2.0-8.3); Neutrophils Percent Auto 72.2 % (45-73); Platelet Count 181 X10*3/uL (160-400); Red Blood Count 5.52 X10*6/uL (4.60-5.80); Red Cell Distribution Width 12.8 % (11.0-16.0); White Blood Count 10.4 X10*3/uL (4.8-10.8)
[2023-05-02 17:36] LABS: Alanine Aminotransferase 48 U/L (0-40); Albumin Level 4.3 g/dL (3.5-5.0); Alkaline Phosphatase 90 U/L (39-117); Anion Gap 13 (12-20); Aspartate Amino Transferase 25 U/L (5-37); Bilirubin Total 0.4 mg/dL (0.0-1.0); Blood Urea Nitrogen 18 mg/dL (9-16); Calcium 9.2 mg/dL (8.4-10.2); Carbon Dioxide 35 mmol/L (22-29); Chloride 103 mmol/L (96-108); Estimated Glomerular Filt Rate > 60; Glucose Random 125 mg/dL (60-115); Potassium 3.5 mmol/L (3.3-5.1); Sodium 147 mmol/L (135-145); Total Protein 6.8 g/dL (6.5-8.0)
== END 2023-05-02 15:09 | disposition home or self-care (01) ==
LOC: HO.XRAY 15:08
PROVIDERS: PCP Nurse Practitioner Family; Visit Provider Physician Assistant
DX: G95.9 Disease of spinal cord, unspecified (principal); G54.9 Nerve root and plexus disorder, unspecified
CPT/HCPCS: 36415; 72050; 80053; 85025

== ENCOUNTER 2023-06-26 13:32 | Outpatient (AMB) | payer OTHER, SELFPAY ==
[2023-06-26 13:47] VITALS: BP 120/60; PULSE 70; BMI 36.8
--- NOTE | 2023-06-26 13:47 | A.OFFVIS_ITS ---
Intake Vital Signs 06/26/23 13:47 Height 5 ft 10 in Weight 256 lb 9.889 oz BMI 36.8 BP 120/60 Blood Pressure Location Lt brachial Position Sitting Pulse 70 Pulse Source Pulse Oximeter Intake Visit Reasons: 4mht f/up Intake Note: pt its here for a 4 mth f/up, pt states that he its feeling fine. 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 Required: No Accompanied by: Spouse Allergies Opioids - Morphine Analogues Allergy (Unknown, Verified 03/02/23 10:50) unknown morphine Allergy (Verified 03/02/23 10:50) Itching, disoriented Medication List - Last Reconciled 06/26/23 by Kyree Alvarez MD acetaminophen 1,000 mg PO QID PRN albuterol sulfate 90 mcg/actuation 2 puffs inhalation Q4-6H PRN alcohol swabs (Alcohol Prep Pads) 1 pad topical BID atorvastatin 10 mg PO BEDTIME blood sugar diagnostic Onetouch test strips blood sugar diagnostic (OneTouch Ultra Blue Test Strip) Use to test blood sugar twice daily or as needed blood-glucose meter (MyQuoteAppTouch Ultra2 Meter) Use to check blood sugar twice daily or as needed carvedilol 25 mg PO BID 90 days clonidine HCl 0.2 mg PO BEDTIME empagliflozin (Jardiance) 10 mg PO DAILY gabapentin 200 mg (2 x 100 mg) PO TID 30 days hydralazine 100 mg PO BID 90 days hydrochlorothiazide 25 mg PO DAILY 90 days lancets (OneTouch Delica Plus Lancet) Use to check blood sugar twice daily lancets As directed lisinopril 40 mg PO DAILY metformin 1,000 mg PO BID nifedipine ER 30 mg PO BID sertraline (Zoloft) 100 mg PO BEDTIME tamsulosin 0.4 mg PO BEDTIME HPI HPI Comments History of Present Illness Details Pleasant 57 gentleman who is referred to us for perioperative cardiovascular risk assessment. He has spinal stenosis and disc prolapse and requires lower back surgery. He has cervical spine surgery 1 week ago and is recovering from that. He has background history of hypertension and is on multiple medications currently. He also has been following with Nephrology in the past. He also has diabetes. He is a smoker and smoking 9-10 cigarettes a day. He is saying that he has cut back on smoking. He saw anesthesia and was noted to have abnormal EKG showing anterior infarct. The said that his EKG has been abnormal for years and years and these changes are old. He had echocardiography performed in January which showed normal LV function but did show some basal and septal hypertrophy. He also had Lexiscan performed which was normal. Due to his back pain and radiculopathy he is unable to walk significantly and is currently quite limited. His symptoms dated back to October and have progressively worsened. In October before the symptoms started, he was doing fine and had no exertional chest discomfort or shortness of breath. He is on multiple medications for hypertension at this point. The is also asking whether the medications can be decreased. 06/26/23: He returns for follow-up. He underwent back surgery and is recovering from that. Been walking and pain control is much better. No chest discomfort shortness of breath with activities. His has concerns that when he takes his blood pressure medications he occasionally gets quite wiped out. She said she has checked his blood pressure in the past and it was in the 90s. She is asking whether any of his medications can be stopped. It appears the patient had resistant hypertension in the past because he is on multiple medications including carvedilol 25 mg twice a day, clonidine 0.2 mg daily at bedtime, hydralazine 100 mg twice a day, hydrochlorothiazide 25 mg daily, lisinopril 40 mg daily and nifedipine 30 mg twice a day. [facility] Medical History Hypertension Stage 3b chronic kidney disease (CKD) Use of cane as ambulatory aid Nicotine dependence, cigarettes, uncomplicated Diabetes (~2019) Depression Arthritis Sleep apnea Asthma Surgical History History of fusion of cervical spine Hx of cystoscopy Hx of lithotripsy History of liver biopsy (~1996) History of cholecystectomy (~1996) History of excision of lesion (~2021) Family History Mother Diabetes Hypertension Father Diabetes Hypertension Hyperlipidemia Social History Housing: House Are you a primary pharmacy customer care specialist to a significant other at home: No Do you presently have visiting nurse or other home services: No Alcohol intake: current Alcohol intake frequency: a few times a week Comment: count done Patient Tobacco Use Status: Current everyday Tobacco user Tobacco use type: Cigarette Cigarette Packs Per Day: 0.75 Cigarettes Per Day: 15 Years Smoked: 30+ Second Hand Smoke Exposure: Yes Substance Use Type: Marijuana service: No Current occupational status: retired and disabled Current occupational exposures/hazards: No Cognitive needs: No Hearing needs: No Vision needs: No Review of Systems Const Denies chills, Denies fatigue, Denies fever(s), Denies frequent falls, Denies weakness, Denies weight gain and Denies weight loss ENT Denies dizziness Card Denies chest pain, Denies leg edema, Denies lightheadedness, Denies palpitations, Denies dyspnea and Denies dyspnea on exertion Resp Denies cough, Denies dyspnea and Denies dyspnea on exertion GI Denies hematochezia Musc Denies abnormal gait, Denies muscle weakness, Denies numbness, Denies radiating pain into limb and Denies tingling Neuro Denies abnormal gait, Denies dizziness, Denies frequent falls, Denies numbness, Denies tingling and Denies weakness Endo Denies fatigue and Denies palpitations Physical Exam Vital Signs: Last Vital Signs Pulse 70 06/26/23 13:47 BP 120/60 06/26/23 13:47 BMI result Body Mass Index 36.8 GENERAL APPEARANCE: in no acute distress, pleasant. NECK: no carotid bruit, no jugular venous distention. SKIN: Healing anterior cervical wound. HEART: no murmurs, regular rate and rhythm. LUNGS: clear to auscultation bilaterally. ABDOMEN: soft, nontender. EXTREMITIES: no edema. PERIPHERAL PULSES: equal. NEUROLOGIC: No gross deficits, AAO X 3 Assessment & Plan Assessment & Plan (1) Hypertension: Code(s): I10 - Essential (primary) hypertension Plan Pleasant 57 year gentleman who is here for follow-up. He was seen for perioperative cardiovascular risk assessment underwent successful back surgery a t this point. His blood pressure is well controlled at this point. He is on multiple medications. The has noticed that at times he looks quite wiped out and tired after taking medications and occasionally when she checked the blood pressure it was in 90s systolic. She said the clonidine was decreased from 0.2 mg twice a day to once a day due to the same reason. I have advised the patient to cut the clonidine to 0.1 mg daily for 2 weeks and monitor blood pressure closely. If he tolerates the change without significant rise in blood pressure then would cut the dose to half a tablet for 1 week and then stop the clonidine. Obviously if his blood pressure starts rising then he needs to continue clonidine at the same dose. Thank you for allowing me to participate in the care of your patient. Please feel free to contact me if you have any questions. Medications: New clonidine HCl 0.1 mg PO BEDTIME 60 tabs 0RF Coding Level of Care Code Est Pt Level 4 (36063) Diagnoses Hypertension I10
== END 2023-06-26 14:19 | disposition home or self-care (01) ==
PROVIDERS: PCP Nurse Practitioner Family; Visit Provider Internal Medicine Cardiovascular Disease
DX: I10 Essential (primary) hypertension (principal)
CPT/HCPCS: 99214

== ENCOUNTER → 2023-06-26 13:32 | Outpatient (BNVA) | payer OTHER, SELFPAY | PROVIDERS: PCP Nurse Practitioner Family; Visit Provider Internal Medicine Cardiovascular Disease ==

== ENCOUNTER 2023-09-26 10:44 | Outpatient (AMB) | payer OTHER, SELFPAY ==
[2023-09-26 11:25] VITALS: BP 142/90; PULSE 61; O2SAT 93; BMI 35.7
--- NOTE | 2023-09-26 11:25 | A.OFFPC_ITS ---
Vital Signs 09/26/23 11:25 09/26/23 12:05 Height 5 ft 10 in Weight 249 lb BMI 35.7 BP 142/90 H 140/70 H Blood Pressure Location Rt brachial Rt brachial Position Sitting Sitting Pulse 61 Pulse Source Pulse Oximeter Pulse Oximetry (%) 93 Oxygen Delivery Method Room Air Intake Visit Reasons: Follow up diabetes Intake Note: Pt is here today for his DM f/u Allergies Opioids - Morphine Analogues Allergy (Unknown, Verified 09/26/23 12:45) unknown morphine Allergy (Verified 09/26/23 12:45) Itching, disoriented Medication List - Last Reconciled 09/26/23 by Ta Serrano, DOUGH SHEETER-BC acetaminophen 1,000 mg PO QID PRN albuterol sulfate 90 mcg/actuation 2 puffs inhalation Q4-6H PRN alcohol swabs (Alcohol Prep Pads) 1 pad topical BID atorvastatin 10 mg PO BEDTIME blood sugar diagnostic Onetouch test strips blood sugar diagnostic (OneTouch Ultra Blue Test Strip) Use to test blood sugar twice daily or as needed blood-glucose meter (7AC TechnologiesTouch Ultra2 Meter) Use to check blood sugar twice daily or as needed carvedilol 25 mg PO BID 90 days clonidine HCl 0.1 mg PO BEDTIME empagliflozin 10 mg PO DAILY gabapentin 200 mg PO BID hydralazine 100 mg PO BID 90 days hydrochlorothiazide 25 mg PO DAILY 90 days lancets (7AC TechnologiesTouch Delica Plus Lancet) Use to check blood sugar twice daily lancets As directed lisinopril 40 mg PO DAILY metformin 500 mg PO BID 90 days nifedipine ER 30 mg PO BID sertraline (Zoloft) 100 mg PO BEDTIME Tobacco use date assessed: 09/26/23 Dental Screening Dental Screen Date: 09/26/23 Did you have a dental visit in the last 12 months?: Yes Did you have a dental problem in the last 6 months where you did not have access to dental care?: No Was dental information given to patient?: Patient has dentist HPI Follow up diabetes HPI Details Pt is a diabetic, on an KARL and a statin. A1C in office today is 6.1. Due for microalbumin, will order. Denies polyuria, does report neuropathy and intermittent polydipsia. Pt denies any signs and symptoms of hypoglycemia and does know how to correct it. Will decrease metformin from 1000mg bid to 500mg bid. Will have pt monitor his blood pressure at home. [facility] Medical History Hypertension Stage 3b chronic kidney disease (CKD) Use of cane as ambulatory aid Nicotine dependence, cigarettes, uncomplicated Diabetes (~2019) Depression Arthritis Sleep apnea Asthma Surgical History History of fusion of cervical spine Hx of cystoscopy Hx of lithotripsy History of liver biopsy (~1996) History of cholecystectomy (~1996) History of excision of lesion (~2021) Family History Mother Diabetes Hypertension Substance use disorder Father Diabetes Hypertension Hyperlipidemia Substance use disorder Social History Housing: House Are you a primary primary care provider to a significant other at home: No Do you presently have visiting nurse or other home services: No Alcohol intake: current Alcohol intake frequency: a few times a week Comment: count done Patient Tobacco Use Status: Current everyday Tobacco user Tobacco use type: Cigarette Cigarette Packs Per Day: 0.75 Cigarettes Per Day: 15 Years Smoked: 30+ e-Cigarette/Vaping Use: Never Used Second Hand Smoke Exposure: Yes Substance Use Type: Marijuana service: No Current occupational status: retired and disabled Current occupational exposures/hazards: No Cognitive needs: No Hearing needs: No Vision needs: No Questionnaire Thrive Questionnaire Date Thrive assessed: 07/19/21 AUDIT C Alcohol Use Questionnaire (AUDIT-C) 1. How often do you have a drink containing alcohol?: Monthly or less 2. How many drinks containing alcohol do you have on a typical day when you are drinking?: 1 or 2 3. How often do you have six or more drinks on one occasion?: Never Total Score: 1 GELA-7 AMB Questionnaire GELA-7 Date GELA - 7 assessed: 07/19/21 Source: Developed by Drs. Gamaliel Medina, Donya Robbins, Amol Griffin and colleagues, with an educational eli from [employer] Review of Systems Const Reports as per HPI Physical exam (Primary Care) Vital Signs: Last Vital Signs Pulse 61 09/26/23 11:25 BP 142/90 H 09/26/23 11:25 Pulse Ox 93 09/26/23 11:25 Oxygen Delivery Method Room Air 09/26/23 11:25 BMI result Body Mass Index 35.7 Tobacco/Smoking Status: Tobacco use Status Tobacco use date assessed 09/26/23 09/26/23 11:29 Patient Tobacco Use Status Current everyday Tobacco 09/26/23 11:29 Tobacco use type Cigarette 09/26/23 11:29 e-Cigarette/Vaping Use Never Used 09/26/23 11:29 Thrive Assessment: Date of Thrive Assessment Date Thrive assessed 07/19/21 09/26/23 11:29 Const General: cooperative Nutritional Appearance: obese Orientation/consciousness: patient oriented x3 Resp Other: coarse wheezes throughout Effort & Inspection: normal respiratory effort Cardio Rate: regular rate Rhythm: regular rhythm Heart sounds: S1 normal heart sound present and S2 normal heart sound present Neuro General: patient oriented x3 Extrem Other: bilat feet: + sensation with use of monofilament, feet intact, trace edema to BLE Psych Appearance: grossly normal Mental Status: mental status grossly normal Speech and movement: Normal speech and movement present Affect: normal affect Attitude: cooperative Thought process: Normal thought process present Thought content: Normal thought content present Insight: Good insight present (Psych) Judgement: Good judgement present (Psych) Results AMB Hemoglobin A1c AMB Hemoglobin A1c 6.1 % Last Edit by Tami Samuel CMA on 09/26/23 11:59 Assessment and Plan Assessment & Plan (1) Diabetes: Onset Date: ~2019 Code(s): E11.9 - Type 2 diabetes mellitus without complications Plan: a1c is good. pt has been eating much better. (2) Microalbuminuria: Code(s): R80.9 - Proteinuria, unspecified Plan The patient agreed to the use of a manager medical writing for this encounter. Scribed for BUCKY Barrera by Katherine Major manager medical writing, on 09/26/2023 at 11:55 EST. Orders: Orders Complete Blood Count Auto Diff Today E11.9 - Type 2 diabetes mellitus without complications, R80.9 - Proteinuria, unspecified Microalbumin, Random (w Creat) Today E11.9 - Type 2 diabetes mellitus without complications, R80.9 - Proteinuria, unspecified AMB Hemoglobin A1c Today Z13.9 - Encounter for screening, unspecified Comprehensive [place]. Panel Fast Today E11.9 - Type 2 diabetes mellitus without complications, R80.9 - Proteinuria, unspecified TSH reflex Free T4 Today E11.9 - Type 2 diabetes mellitus without complications, R80.9 - Proteinuria, unspecified UA CC w/rflx Micro + Cult Today E11.9 - Type 2 diabetes mellitus without complications, R80.9 - Proteinuria, unspecified Lipid Panel Today E11.9 - Type 2 diabetes mellitus without complications, R80.9 - Proteinuria, unspecified Medications: Changed From gabapentin 200 mg (2 x 100 mg) PO TID 30 days 180 caps 1RF To gabapentin 200 mg PO BID From empagliflozin (Jardiance) 10 mg PO DAILY 90 tabs 1RF E11.9 - Type 2 diabetes mellitus without complications To empagliflozin 25 mg PO DAILY 90 tabs 1RF E11.9 - Type 2 diabetes mellitus without complications From empagliflozin 25 mg PO DAILY 90 tabs 1RF E11.9 - Type 2 diabetes mellitus without complications To empagliflozin 10 mg PO DAILY 90 tabs 1RF E11.9 - Type 2 diabetes mellitus without complications From metformin 1,000 mg PO BID 180 tabs 1RF To metformin 500 mg PO BID 90 days 180 tabs 1RF Coding Level of Care Code Est Pt Level 3 (07765) Diagnoses Diabetes E11.9 Microalbuminuria R80.9
[2023-09-26 12:05] VITALS: BP 140/70
== END 2023-09-26 13:15 | disposition home or self-care (01) ==
PROVIDERS: PCP Nurse Practitioner Family; Visit Provider Nurse Practitioner Family
DX: E11.9 Type 2 diabetes mellitus without complications (principal); R80.9 Proteinuria, unspecified
CPT/HCPCS: 83036; 99213

== ENCOUNTER 2024-03-20 22:15 | Emergency (ER) | payer OTHER, SELFPAY ==
[2024-03-20 22:24] VITALS: BP 141/91; PULSE 88; RESP 18; TEMP 36.9; O2SAT 95; BMI 35.3
--- NOTE | 2024-03-21 01:54 | PC.NURSE ---
T/w in to see pt and after tech reported that pt and were yelling at her. Pt and very upset reporting that they have been waiting to be seen and noone had come in to address them. T/w apologized for the wait and tried to explain that the nurse and tech were in anopther room with a very sick pt. Pt asked if t/w would be doing something about his finger and this RN explained that I could not personally stitch his finger pt stood up very upset and telling his not to bother explaining and he wanted to leave. Pt went out in waiting room and stayed in the room.
--- NOTE | 2024-03-21 01:55 | MHC.EDTECH ---
This tech went in to room to check on pt, introduced myself, pts started yelling at this sheet writer that no one has been in to see them, this sheet writer explained to her that the nurse and myself were doing patient care in another room, I apologized, not receptive to apology at this time, stating they shut off the call kumar , this sheet writer explained that the call was paged overhead, lead gemini Bob went into the room to assist pt and pts stated hes been here over 3 hours, theres only so much time that the tissue is viable , who then notified Faustina Johnston RN. Pt then witnessed walking out stating I'm leaving, I'm going to [facility]. walked out shortly after. Both then came back into department, pts finger cleansed, no active bleeding at this time. Awaiting provider.
--- NOTE | 2024-03-21 02:32 | ED.WOUNDLAC ---
HPI - Wound/Laceration General Chief Complaint: Wound/Laceration Stated Complaint: L middle finger lac Time Seen by Provider: 03/21/24 02:07 Source: patient Mode of arrival: ambulatory Limitations: no limitations History of Present Illness ED Provider: Dr. Reyes Valladares HPI narrative: 58-year-old male who presents emergency department for evaluation of laceration in his left middle finger. He states he was reaching into his tool box and there was a razor blade in the box the cut his finger. Patient was able to control the bleeding came to the emergency department for evaluation. He believes that his last tetanus shot was greater than 5 years prior. Related Data Home Medications ?Medication ?Instructions ?Recorded ?Confirmed lancets #100 ea 07/15/20 09/26/23 acetaminophen 500 mg tablet 1,000 mg PO QID PRN Pain 02/20/23 09/26/23 Previous Rx's ?Medication ?Instructions ?Recorded alcohol swabs (Alcohol Prep Pads) 1 pad topical BID #100 ea 05/13/20 blood-glucose meter (OneTouch #1 ea 05/13/20 Ultra2 Meter) blood sugar diagnostic #100 ea 06/01/20 blood sugar diagnostic (OneTouch #50 ea 06/01/20 Ultra Blue Test Strip) lancets 30 gauge (OneTouch Delica #100 ea 06/05/20 Plus Lancet) clonidine HCl 0.1 mg tablet 0.1 mg PO BEDTIME #90 tabs 06/27/23 atorvastatin 10 mg tablet 10 mg PO BEDTIME #90 tabs 07/30/23 empagliflozin 10 mg tablet 10 mg PO DAILY #90 tabs 09/26/23 metformin 500 mg tablet 500 mg PO BID 90 days #180 tabs 09/26/23 nifedipine 30 mg tablet,extended 30 mg PO BID #180 tabs 11/08/23 release carvedilol 25 mg tablet 25 mg PO BID 90 days #180 tabs 11/27/23 lisinopril 40 mg tablet 40 mg PO DAILY #90 tabs 12/08/23 hydralazine 100 mg tablet 100 mg PO BID 90 days #180 tabs 01/11/24 hydrochlorothiazide 25 mg tablet 25 mg PO DAILY 90 days #90 tabs 02/06/24 sertraline 100 mg tablet (Zoloft) 100 mg PO BEDTIME #90 tabs 10/08/24 albuterol sulfate 90 mcg/actuation 2 puff inhalation Q4-6H PRN for 02/19/24 aerosol inhaler wheezing #8.5 grams gabapentin 100 mg capsule 100 mg PO DAILY PRN 03/04/24 pain/neuropathy 90 days #90 caps gabapentin 300 mg capsule 300 mg PO BID 90 days #180 caps 03/04/24 Allergies Allergy/AdvReac Type Severity Reaction Status Date / Time Opioids - Morphine Analogues Allergy Unknown unknown Verified 03/20/24 22:25 morphine Allergy Itching, Verified 03/20/24 22:25 disoriented [facility] Past Medical History Medical History (Updated 03/21/24 @ 03:08 by Reyes Valladares MD) Hypertension Stage 3b chronic kidney disease (CKD) Use of cane as ambulatory aid Nicotine dependence, cigarettes, uncomplicated Diabetes (~2019) Depression Arthritis Sleep apnea Asthma Surgical History History of fusion of cervical spine Hx of cystoscopy Hx of lithotripsy History of liver biopsy (~1996) History of cholecystectomy (~1996) History of excision of lesion (~2021) Family History Family History Mother Diabetes Hypertension Substance use disorder Father Diabetes Hypertension Hyperlipidemia Substance use disorder Social History Social History Housing: House Are you a primary home health care provider to a significant other at home: No Do you presently have visiting nurse or other home services: No Alcohol intake: current Alcohol intake frequency: a few times a week Comment: count done Patient Tobacco Use Status: Current everyday Tobacco user Tobacco use type: Cigarette Cigarette Packs Per Day: 0.75 Cigarettes Per Day: 15 Years Smoked: 30+ Smoked in Last 30 Days: No e-Cigarette/Vaping Use: Never Used Second Hand Smoke Exposure: Yes Use of substances other than those prescribed or required for medical reasons: No Substance Use Type: Marijuana Advance Directives: No Advance Directives Information Provided: No Do you have a plan to hurt others: No Plan service: No Current occupational status: retired and disabled Current occupational exposures/hazards: No Cognitive needs: No Hearing needs: No Vision needs: No Physical Exam Vital Signs: Vital Signs: Last Vital Signs Temp 97.9 F 03/21/24 03:40 Pulse 70 03/21/24 03:40 Resp 20 03/21/24 03:40 BP 140/81 H 03/21/24 03:40 Pulse Ox 97 03/21/24 03:40 O2 Del Method Room Air 03/21/24 03:40 BMI result Body Mass Index 35.3 Vital signs revealed an elevated blood pressure of 141/91 otherwise unremarkable Left hand examination: The patient has a linear laceration measuring 2.0 cm over the left index finger pad, it was a full skin thickness, bleeding was controlled pressure. Extremities neurovascularly intact, has normal strength with normal sensory exam. Medications Administered Discontinued Medications Generic Name Dose Route Start Last Admin Trade Name Freq PRN Reason Stop Dose Admin Bacitracin 1 appl 03/21/24 03:02 03/21/24 03:15 Bacitracin Oint 0.9 Gm Packet TOPICAL 03/21/24 03:03 1 appl ONCE ONE Administration Protocol Diphtheria/Tetanus/Acell Pertussis 0.5 ml 03/21/24 02:10 03/21/24 02:44 Diphth,Pertus(Acell),Tet Adult 0.5 Ml Syringe IM 03/21/24 02:11 0.5 ml .ONCE ONE Administration Lidocaine HCl 5 ml 03/21/24 02:10 03/21/24 02:44 Lidocaine Hcl 1 % Mpf 5 Ml Vial INFILTRATI 03/21/24 02:11 5 ml ONCE STA Administration Lidocaine HCl 5 ml 03/21/24 02:10 03/21/24 02:44 Lidocaine Hcl 1 % Mpf 5 Ml Vial INFILTRATI 03/21/24 02:11 5 ml ONCE ONE Administration Medical Decision Making Medical Decision Making MDM Narrative: 58-year-old male who presents emergency department for evaluation of accidental laceration to his left index finger that occurred when he reached into his tool box and there was a razor blade the accidentally cut his finger. Physical exam did reveal an elevated blood pressure otherwise unremarkable. The patient does have a linear laceration to the index finger which is full skin thickness. Differential diagnosis: ?Includes but is not limited to skin laceration, tendon injury, ligament injury Course: 03:04 The patient's finger was anesthetized using a digital block and repaired with 5.0 nylon sutures x7. Patient's wound was dressed with bacitracin and gauze dressing he was discharged home with printed and verbal instructions. Patient was given a Tdap here in the emergency department Admission/Observation Consideration of admission/observation: Escalation of care including admission/observation considered ( no will) Chronic Conditions Patient?s care impacted by: Diabetes Procedures Laceration Left middle finger: Site: scalp Side (If applicable): left Size (cm): 2.0 Description: linear Local Anesthetic: lidocaine 1% (digital block) Amount of anesthesia used (mL): 10 Pre-repair: wound explored and irrigated extensively Skin layer closed with: nylon Size (cm): 5-0 Number of sutures: 7 Technique: simple, interrupted Discharge Plan Discharge Clinical Impression: Tetanus-diphtheria (Td) vaccination Finger laceration Qualifiers: Encounter type: initial encounter Finger: middle finger Damage to nail status: without damage Foreign body presence: without foreign body Laterality: left Qualified Code(s): S61.213A - Laceration without foreign body of left middle finger without damage to nail, initial encounter Patient Disposition: Home, Self-Care Instructions: Laceration (ED) Additional Instructions: Apply bacitracin once a day until the stitches are removed The stitches need to be removed in 10-14 days either by your primary care doctor, urgent care or here in the emergency department. Watch for signs of infection which include redness, swelling, drainage of pus, red streaks going away from the wound, increased pain. If you think that wounds infected you can follow-up with your doctor return to the emergency department to get started on antibiotics. Take ibuprofen 200 mg pills, 2 pills every 6 hours as needed for pain or fever. Take Tylenol (acetaminophen) 500 mg pills, 2 pills every 6 hours as needed for pain or fever. Follow-up with your doctor in 2 days. Please return to the emergency department if your symptoms get worse or if you develop any symptoms that are concerning to you. You were given a tetanus, diptheria and pertussis immunization (Tdap) in the emergency department. You do not need another tetanus shot for at least 5 years. Between 5 and 10 years if you have a contaminated mood you will need a tetanus shot and after 10 years you will need a booster shot. Prescriptions: No Action alcohol swabs [Alcohol Prep Pads] Pads, Medicated 1 pad topical BID Qty: 100 2RF (DME) blood-glucose meter [OneTouch Ultra2 Meter] Misc See Rx Instructions .ROUTE .MEDSUPPLY Qty: 1 0RF Rx Instructions: Use to check blood sugar twice daily or as needed (DME) blood sugar diagnostic Strip See Rx Instructions .ROUTE .MEDSUPPLY Qty: 100 2RF Rx Instructions: Onetouch test strips (DME) OneTouch Ultra Blue Test Strip Strip See Rx Instructions .ROUTE .MEDSUPPLY Qty: 50 2RF Rx Instructions: Use to test blood sugar twice daily or as needed (DME) lancets [OneTouch Delica Plus Lancet] 30 gauge misc See Rx Instructions .ROUTE .MEDSUPPLY Qty: 100 2RF Rx Instructions: Use to check blood sugar twice daily (DME) lancets Misc See Rx Instructions Not Applicable BID Qty: 100 Rx Instructions: As directed clonidine HCl 0.1 mg tablet 0.1 mg PO BEDTIME Qty: 90 3RF atorvastatin 10 mg tablet 10 mg PO BEDTIME Qty: 90 1RF nifedipine 30 mg tablet extended release 30 mg PO BID Qty: 180 1RF carvedilol 25 mg tablet 25 mg PO BID 90 Days Qty: 180 1RF Rx Instructions: must administer with a meal/food lisinopril 40 mg tablet 40 mg PO DAILY Qty: 90 1RF hydralazine 100 mg tablet 100 mg PO BID 90 Days Qty: 180 1RF hydrochlorothiazide 25 mg tablet 25 mg PO DAILY 90 Days Qty: 90 0RF sertraline [Zoloft] 100 mg tablet 100 mg PO BEDTIME Qty: 90 1RF albuterol sulfate 90 mcg/actuation HFA aerosol inhaler 2 puff inhalation Q4-6H PRN (Reason: for wheezing) Qty: 8.5 4RF Patient Comments: has used daily for years gabapentin 100 mg capsule 100 mg PO DAILY PRN (Reason: pain/neuropathy) 90 Days Qty: 90 3RF Rx Instructions: to supplement current dose of 300mg bid. Please take daily prn in between BID dosing. gabapentin 300 mg capsule 300 mg PO BID 90 Days Qty: 180 3RF acetaminophen 500 mg tablet 1,000 mg PO QID PRN (Reason: Pain) empagliflozin 10 mg tablet 10 mg PO DAILY Qty: 90 1RF metformin 500 mg tablet 500 mg PO BID 90 Days Qty: 180 1RF Interventions: ED Discharge Assessment Last Done: 03/21/24 03:40 Discharge Date/Time: 03/21/24 03:40 Print Language: Moroccan
[2024-03-21] MEDS: Diphth,Pertus(ACell),Tet Adult 0.5 ML SYRINGE IM (02:44)
[2024-03-21] MEDS: Lidocaine HCl 1 % MPF 5 ML VIAL INFILTRATI ×2 (02:44)
--- NOTE | 2024-03-21 02:44 | PC.NURSE ---
provider at bedside placing sutures in pt laceration, pt tolerated well. pt given teatanus shot at this time, tolerated well .
[2024-03-21 03:15] VITALS: BP 140/81; PULSE 70; RESP 20; TEMP 36.6; O2SAT 97
[2024-03-21] MEDS: Bacitracin Oint 0.9 GM PACKET 1 APPL TOPICAL (03:15)
--- NOTE | 2024-03-21 03:38 | MHC.EDTECH ---
This commercial underwriter applied bacitracin to patients finger, wrapped w/telfa and cling,pt tolerated well
[2024-03-21 03:40] VITALS: BP 140/81; PULSE 70; RESP 20; TEMP 36.6; O2SAT 97
== END 2024-03-21 03:40 | disposition home or self-care (01) ==
PROVIDERS: Emergency Provider Emergency Medicine Emergency Medical Services; PCP Nurse Practitioner Family
DX: S61.213A Laceration without foreign body of left middle finger without damage to nail, initial encounter (principal); F17.210 Nicotine dependence, cigarettes, uncomplicated; W26.0XXA Contact with knife, initial encounter; Y93.89 Activity, other specified; Y92.89 Other specified places as the place of occurrence of the external cause; Y99.8 Other external cause status; Z23 Encounter for immunization; Z79.899 Other long term (current) drug therapy
CPT/HCPCS: 12031; 90471; 90715; 99284; J2003

== ENCOUNTER 2024-04-16 12:54 | Outpatient (REF) | payer OTHER, SELFPAY ==
--- OUTSIDE RECORDS SUMMARY | 2024-04-16 12:56 | XMS_ITS | Continuity of Care Document ---
Author Organization [facility] Address [address] [place] [address] [place] [address] Phone Care Team Providers Care Plastic Machine Operator Name Role Phone Isabel Leija APRN Unavailable Unavailable Allergies, Adverse Reactions, Alerts Substance Reaction Status Criticality TETANUS AND DIPHTHERIA TOXOID, PEDIATRIC Active No Information Medications Medication Instructions Dosage Effective Dates (start - stop) Status Comments levothyroxine 50 mcg tablet take 1 tablet by oral route every day 50 MCG - Active Procedures Procedure Date OFFICE/OUTPATIENT VISIT, [facility] SARS-COV-2 DNA AMP PROBE SYST BP LT 130 MM HG DIAST BP < 80 MM HG Advance Directives Directive Yes / No Effective Date File Name No Information Encounters Encounter Description Practice Location Reason(s) For Visit Diagnoses Date Provider Providers Copied on Encounter OFFICE/OUTPAT IENT VISIT, [facility], [address] [place] [address], [id number], tel:[phone] [facility] sore throat (chief complaint) Encounter for observation for suspected exposure to other biological agents ruled out Heladio Hall. [address] [place] [address], [id number] [address] [place] [address], [id number], . tel:[phone] Family History Family Member Type Diagnosis Age At Onset No Information Payers Payer name Insurance type Covered alliance party ID Authoriza tion(s) [employer] CI [id number] Social History Type Description Quantity Date Captured Comments Alcohol Use Details Caffeine Use Details coffee Tobacco Use Status Heavy cigarette smok er (20-39 cigs/day) Smoking Status Heavy tobacco smoker Smoking Tobacco Use Details Cigarette: No Details Available Cigarette: 1 Packs per day Sex Male Sexual Orientation Straight or heterosexual [...] and body aches. Pertinent negatives include fever. Reason For Referral Reason For Referral No Information Plan Of Treatment Date Type Action Status Goal Anxiety/Depression Screen (P HQ-2). Due on due Goal Colonoscopy. Due on 021 due Goal Sigmoidoscopy. Due on due Goal Zoster vaccine (). Due on due Goal HIV Screening Antigen/Antibo dy. Due on due Goal Cologuard. Due on due Goal FOBT. Due on due Goal Tobacco cessation counseling completed Goal Tobacco cessation counseling completed History Of Present Illness Encounter Date Complaint History Of Prese nt Illness sore throat Onset: 2 Days. S ymptoms are associated with smoker and covid exposure. Associated symptoms include cough, headache, pharyngitis and body aches. Pertinent negatives include fever. Functional Status Date Functional Assessmen t No Information Instructions Date Instruction Additional Infor mation COVID-19 test Negati veAdvised to start Vitamin [...] Mental Status Date Cognitive Assessment Orientation - [place] ed to time, place, person, situation. Patient Care Teams Name Effective Dates (start - stop) Status Members No Information
[2024-04-16 16:05] LABS: MANUAL DIFF FLAG NO
[2024-04-16 16:11] LABS: Appearance Urine Clear; Color Urine Yellow; Glucose Urine UA >=1000 mg/dL (Negative); Leukocyte Esterase Urine Negative (Negative); Nitrite Urine Negative (Negative); Specific Gravity - Urine >= 1.030 (1.005-1.025); UMIC TRIGGER UACC YES; Urine Blood Negative (Negative); Urine Ketones Negative (Negative); Urine Protein Trace mg/dL (Neg-Trace)
[2024-04-16 16:14] LABS: Bacteria Urine None Seen (None Seen); Hyaline Casts Urine 0-2 /LPF (0-2); RBC Urine 0-2 /HPF (0-2); Squamous Epithelial Cell Urine 0-2 /HPF (0-2); WBC Urine 0-5 /HPF (0-5)
[2024-04-16 16:17] LABS: Basophils Absolute Auto 0.1 X10*3/uL (0.0-0.2); Basophils Percent Auto 0.5 % (0-2); Eosinophils Absolute Auto 0.4 X10*3/uL (0.0-0.4); Eosinophils Percent Auto 4.2 % (0-4); Hematocrit 52.1 % (42.0-52.0); Hemoglobin 17.4 g/dl (14.0-18.0); Imm Gran Abs Auto 0.02 X10*3/uL (0.00-0.03); Imm Gran Pct Auto 0.2 % (0.0-0.4); Lymphocytes Absolute Auto 1.4 X10*3/uL (1.2-4.9); Lymphocytes Percent Auto 14.3 % (20-40); Mean Corpuscular HGB Conc 33.4 g/dl (31.0-36.0); Mean Corpuscular Hemoglobin 31.1 pg (27.0-33.0); Mean Corpuscular Volume 93.2 fL (80.0-98.0); Mean Platelet Volume 11.5 fL (9.4-12.4); Monocytes Percent Auto 10.6 % (2-11); Neutrophils Absolute Auto 6.7 x10*3/uL (2.0-8.3); Neutrophils Percent Auto 70.2 % (45-73); Platelet Count 161 X10*3/uL (160-400); Red Blood Count 5.59 X10*6/uL (4.60-5.80); Red Cell Distribution Width 12.6 % (11.0-16.0); White Blood Count 9.6 X10*3/uL (4.8-10.8)
[2024-04-16 16:52] LABS: Alkaline Phosphatase 90 U/L (39-117); Anion Gap 8 (12-20); Aspartate Amino Transferase 24 U/L (5-37); Bilirubin Total 0.6 mg/dL (0.0-1.0); Blood Urea Nitrogen 27 mg/dL (9-16); Calcium 9.1 mg/dL (8.4-10.2); Carbon Dioxide 34 mmol/L (22-29); Chloride 104 mmol/L (96-108); Cholesterol 116 mg/dL (<200); Estimated Glomerular Filt Rate > 60; Glucose Fasting 115 mg/dL (60-99); HDL Cholesterol 37 mg/dL (>40); LDL Cholesterol Calculated 53 mg/dL (<100); Potassium 3.3 mmol/L (3.3-5.1); Sodium 143 mmol/L (135-145); Total Protein 6.9 g/dL (6.5-8.0); Triglycerides 131 mg/dL (<150)
[2024-04-16 16:52] LABS: Creatinine Urine 202.21 mg/dL; Microalbum/Creatinine Ratio Ur 5.9 ug/mg cr (<30)
[2024-04-16 17:03] LABS: Alanine Aminotransferase 32 U/L (0-40); TSH reflex Free T4 1.82 uIU/mL (0.32-4.0)
== END 2024-04-16 12:55 | disposition home or self-care (01) ==
LOC: HO.HMGCLDS 12:54
PROVIDERS: PCP Nurse Practitioner Family; Visit Provider Nurse Practitioner Family
DX: E11.9 Type 2 diabetes mellitus without complications (principal); R80.9 Proteinuria, unspecified
CPT/HCPCS: 36415; 80053; 80061; 81001; 82043; 82570; 84443; 85025

== ENCOUNTER 2024-04-17 13:30 | Outpatient (AMB) | payer OTHER, SELFPAY ==
--- OUTSIDE RECORDS SUMMARY | 2024-04-17 13:32 | XMS_ITS | Continuity of Care Document ---
Author Organization [facility] Address [address] [place] [address] [place] [address] Phone Care Team Providers Care Tool Designer Name Role Phone Isabel Leija APRN Unavailable Unavailable Allergies, Adverse Reactions, Alerts Substance Reaction Status Criticality TETANUS AND DIPHTHERIA TOXOID, PEDIATRIC Active No Information Medications Medication Instructions Dosage Effective Dates (start - stop) Status Comments levothyroxine 50 mcg tablet take 1 tablet by oral route every day 50 MCG - Active Procedures Procedure Date OFFICE/OUTPATIENT VISIT, [facility] SARS-COV-2 DNA AMP PROBE SYST BP LT 130 MM HG DIAST BP < 80 MM HG Advance Directives Directive Yes / No Effective Date File Name No Information Encounters Encounter Description Practice Location Reason(s) For Visit Diagnoses Date Provider Providers Copied on Encounter OFFICE/OUTPAT IENT VISIT, [facility], [address] [place] [address], [id number], tel:[phone] [facility] sore throat (chief complaint) Encounter for observation for suspected exposure to other biological agents ruled out Heladio Hall. [address] [place] [address], [id number] [address] [place] [address], [id number], . tel:[phone] Family History Family Member Type Diagnosis Age At Onset No Information Payers Payer name Insurance type Covered green party ID Authoriza tion(s) [employer] CI [id number] Social History Type Description Quantity Date Captured [...] Screening Antigen/Antibo dy. Due on due Goal FOBT. Due on due Goal Cologuard. Due on due Goal Tobacco cessation counseling [...] Mental Status Date Cognitive Assessment Orientation - [place] ed to time, place, person, situation. Patient Care Teams Name Effective Dates (start - stop) Status Members No Information
[2024-04-17 13:34] VITALS: BP 138/72; PULSE 76; O2SAT 97; BMI 36.0
--- NOTE | 2024-04-17 13:34 | MHC.PC.OV ---
Vital Signs 04/17/24 13:34 Height 5 ft 10 in Weight 251 lb BMI 36.0 BP 138/72 Blood Pressure Location Lt brachial Position Sitting Pulse 76 Pulse Source Pulse Oximeter Pulse Oximetry (%) 97 Intake Visit Reasons: follow up Allergies Opioids - Morphine Analogues Allergy (Unknown, Verified 04/17/24 13:35) unknown morphine Allergy (Verified 04/17/24 13:35) Itching, disoriented Tobacco use date assessed: 09/26/23 Dental Screening Dental Screen Date: 09/26/23 HPI follow up HPI Details Chief Complaint Management of diabetes and blood pressure, unresolved neuropathy, finger laceration healing, and concerns about a possible tick bite. History of Present Illness The patient is a 58-year-old male presenting with chronic conditions, notably, Diabetes Mellitus Type 2. He has been managing his diabetes with metformin, now at a reduced dose, and Jardiance, which appears effective in maintaining blood glucose levels. Recent HbA1c levels have improved to 6.0. The patient experiences neuropathy manifesting as numbness and tingling in the feet, noted improvements with gabapentin, now titrated to 600 mg twice daily. His hypertension, historically managed with clonidine, lisinopril, and nifedipine, has recently shown episodes of hypotension, notably a reading of 90/60, suggesting an overmedicated state. Recent changes include a reduction in clonidine and hydrochlorothiazide dosages. The patient reports a laceration on his finger, previously deeply cut, now healing well after suture removal at home. Additionally, he mentions a tick bite in December, leading to concerns about tick-borne diseases. NOTE: DENIES LDCTs, continues to smoke Social History - Engages in outdoor recreational activities such as hunting. - Reports a history of potentially unstable insurance coverage affecting healthcare appointments. - Smoker. Health Maintenance - Eye examination is overdue and pending. - Screening labs including PSA are pending. - Encounters challenges scheduling due to insurance changes. Review of Systems - Neurological: Reports episodes of dizziness. - Cardiovascular: Denies chest pain. - Dermatological: Reports a healing laceration on finger. - Musculoskeletal: Denies joint pain or swelling. - Respiratory: Reports occasional shortness of breath. -denies any fevers or chills Physical Exam General: Cooperative, healthy appearing, comfortable, no acute distress and well developed Orientation: Patient oriented x3 Limitations: No limitations Head: Normal to inspection Ears: Hearing grossly normal bilaterally Nose: Normal external nose present Face and sinus: Normal facial exam Eyes: Appearance normal, both eyes and all related structures Neck: Normal visual inspection and Yes full ROM Respiratory: S1 S2 there's some faint scattered wheezes. Cardiovascular: Regular rate and rhythm. Normal S1 and S2 GI: Normal to inspection. Soft to palpation and nontender Skin: psoterior neck with faintly erythematous papular lesion (appears to be healing-tick bite). Tip of left middle finger is healing, small scabbed eschar like lesion to tip, no signs of infection. granulation tissue surrounding darker scabbed/eschar region. No s/s of surrounding infection Neuro: Patient oriented x3, feet intact, + sensation with use of monofilament Extremities: Normal to inspection Results - Labs: Most recent HbA1c at 6.0. - Pending PSA and tick-borne illness panel. Plan 1. 5 mg daily and tapering clonidine, to prevent hypotension: - Continue gabapentin 600 mg twice daily for neuropathy. - Monitor neurological symptoms; consider adjustment if neuropathy deteriorates. - Conduct laboratory evaluation for potential tick-borne illness. - Schedule eye examination for diabetic retinopathy screening. - Instruct patient on signs of infection for the finger laceration and monitor healing progress. Patient was informed and verbally consented to the use of an ambient scribe for clinic note documentation during this visit. Discussion Notes I discussed the patient's improved glycemic control as evidenced by an HbA1c of 6.0, commending his adherence to the regimen and dietary modifications. We reviewed the need for adjusting hypertension management, focusing on stabilizing blood pressure to avoid hypotensive episodes. I explained the rationales for reducing clonidine and hydrochlorothiazide and the plan for gradual weaning. The patient expressed understanding and agreement with modifying diabetic medications to extended-release formulations for simplicity (metformin). We addressed his concerns over a tick bite, agreeing on laboratory tests to rule out tick-borne diseases and potentially starting antibiotic treatment pending results. Follow-up is planned in four months to reassess health status and medication efficacy, with instructions to contact the office sooner if blood pressure remains low or additional symptoms arise. Patient Instructions - Adhere to the current medication regimen as adjusted. - Monitor for symptoms of low blood pressure, such as dizziness, and report any significant changes. - Observe the healing process of the finger laceration and report signs of infection. - Complete pending laboratory tests, including tick panel and PSA, at the earliest convenience. - Schedule and attend an eye examination. - Notify the office of any further symptoms, or changes in health status. - Continue efforts to quit smoking for overall health improvement. [facility] Medical History Hypertension Stage 3b chronic kidney disease (CKD) Use of cane as ambulatory aid Nicotine dependence, cigarettes, uncomplicated Diabetes (~2019) Depression Arthritis Sleep apnea Asthma Surgical History History of fusion of cervical spine Hx of cystoscopy Hx of lithotripsy History of liver biopsy (~1996) History of cholecystectomy (~1996) History of excision of lesion (~2021) Family History Mother Diabetes Hypertension Substance use disorder Father Diabetes Hypertension Hyperlipidemia Substance use disorder Social History Housing: House Are you a primary elderly caregiver to a significant other at home: No Do you presently have visiting nurse or other home services: No Alcohol intake: current Alcohol intake frequency: a few times a week Comment: count done Patient Tobacco Use Status: Current everyday Tobacco user Tobacco use type: Cigarette Cigarette Packs Per Day: 0.75 Cigarettes Per Day: 15 Years Smoked: 30+ e-Cigarette/Vaping Use: Never Used Second Hand Smoke Exposure: Yes Substance Use Type: Marijuana service: No Current occupational status: retired and disabled Current occupational exposures/hazards: No Cognitive needs: No Hearing needs: No Vision needs: No Questionnaire PHQ-9 Over the last 2 weeks, how often have you been bothered by any of the following problems? 1. Little interest or pleasure in doing things: several days 2. Feeling down, depressed, or hopeless: several days 3. Trouble falling or staying asleep, or sleeping too much: several days 4. Feeling tired or having little energy: several days 5. Poor appetite or overeating: not at all 6. Feeling bad about yourself - or that you are a failure or have let yourself or your family down: several days 7. Trouble concentrating on things, such as reading the newspaper or watching television: several days 8. Moving or speaking so slowly that other people could have noticed. Or the opposite - being so fidgety or restless that you have been moving around a lot more than usual: several days 9. Thoughts that you would be better off or of hurting yourself in some way: several days Total score: 8 Depression Screening Interpretation: Negative Depression Screening Done: Yes 99639 - PHQ-9 Billing: Yes Source: Developed by Drs. Gamaliel Medina, Donya Robbins, Amol Griffin and colleagues, with an educational eli from [employer]. Thrive Questionnaire Date Thrive assessed: 04/17/24 I am a: Patient What is your living situation today?: I have a steady place to live Within the past 12 months, did the food you bought not last and you didn't have the money to get more?: Never true Within the past 12 months, did you worry whether your food would run out before you got money to buy more?: Never true Do you have trouble paying for medicines?: No Do you have trouble getting transportation to medical appointments?: No Do you have trouble paying your heating and electricity bill?: No Do you have trouble taking care of your child, family member or friend?: No Do you have trouble with day-to-day activities such as bathing, preparing meals, shopping, managing finances, etc.?: No Are you currently unemployed and looking for a job?: No Are you interested in more education?: No Please select the resources that you would like help with: None Currently or been in a relationship where the following occur: No concerns reported THRIVE Score: 0 AUDIT C Alcohol Use Questionnaire (AUDIT-C) 1. How often do you have a drink containing alcohol?: Monthly or less 2. How many drinks containing alcohol do you have on a typical day when you are drinking?: 1 or 2 3. How often do you have six or more drinks on one occasion?: Never Total Score: 1 Score Reviewed/Action Taken: Yes GELA-7 AMB Questionnaire GELA-7 Date GELA - 7 assessed: 04/17/24 Feeling nervous, anxious, or on edge: 2 = More than half the days Not being able to stop or control worryin = More than half the days Worrying too much about different things: 2 = More than half the days Trouble relaxin = Nearly every day Being so restless that it is hard to sit still: 3 = Nearly every day Becoming easily annoyed or irritable: 3 = Nearly every day Feeling afraid as if something awful might happen: 3 = Nearly every day Total GELA-7 score (0-4 normal; 5-9 mild; 10-14 moderate; 15-21 severe): 18 Source: Developed by Drs. Gamaliel Medina, Donya Robbins, Amol Griffin and colleagues, with an educational eli from [employer]. GELA-7 Assessment Billing GELA-7 Assessment Tool: GELA-7 Assessment 91522 Physical exam (Primary Care) Vital Signs: Last Vital Signs Pulse 76 04/17/24 13:34 BP 138/72 04/17/24 13:34 Pulse Ox 97 04/17/24 13:34 BMI result Body Mass Index 36.0 Tobacco/Smoking Status: Tobacco use Status Tobacco use date assessed 09/26/23 04/17/24 13:37 Patient Tobacco Use Status Current everyday Tobacco 04/17/24 13:37 Tobacco use type Cigarette 04/17/24 13:37 e-Cigarette/Vaping Use Never Used 04/17/24 13:37 Depression Screening Interpretation: Negative Thrive Assessment: Date of Thrive Assessment Date Thrive assessed 07/19/21 04/17/24 13:37 Currently or been in a relationship where the following occur: No concerns reported Office Procedures Flu Questionnaire Does the patient have a severe egg allergy?: No Does the patient have severe life threatening allergies?: No Does the patient have a fever or illness today?: No Has the patient ever had Guillain-Colton Syndrome?: No Has the patient ever had any past reaction to a flu shot?: No Results AMB Hemoglobin A1c AMB Hemoglobin A1c 6.0 % Last Edit by Bc Barcenas CMA on 04/17/24 14:01 Immunizations Fluarix Triv [id number] (PF) 45 mcg (15 mcg x 3)/0.5 mL IM syringe Performing Provider: BUCKY Rg Performing Location[place] [facility] Administered by: Bc Barcenas CMA on 04/17/24 14:14 Dose Route Admin Location Dispensed Lot Number Expiration Date [facility] Grinding Wheel Inspector 0.5 mL IM Right Deltoid 0.5 mL [id number] 10/28/24 [id number] [place] VIS Given Date VIS Provided VIS Publication Date 04/17/24 Single Vaccine 20 Eligibility Eligibility Date Funding Source Not [facility] Eligible 04/17/24 Private Results Reviewed Results Reviewed: Laboratory Last Values Hgb A1c (Clinic) 6.0 % (4.0-6.0) 04/17/24 14:01 Coding Level of Care Code Est Pt Level 3 (09315) Diagnoses Screening PSA (prostate specific antigen) Z12.5 Tick bite W57.XXXA Screening for colon cancer Z12.11 Additional Codes GELA-7 Assessment Billing - GELA-7 Assessment Tool: GELA-7 Assessment 05844 ([id number]) PHQ-9 - 57788 - PHQ-9 Billing: Yes ([id number]) Assessment & Plan Assessment & Plan (1) Screening PSA (prostate specific antigen): Code(s): Z12.5 - Encounter for screening for malignant neoplasm of prostate Category: Medical (2) Tick bite: Code(s): W57.XXXA - Bitten or stung by nonvenomous insect and other nonvenomous arthropods, initial encounter Category: Medical (3) Screening for colon cancer: Code(s): Z12.11 - Encounter for screening for malignant neoplasm of colon Category: Medical Plan . Orders: Orders Prostate Specific Antigen Scr Today Z12.5 - Encounter for screening for malignant neoplasm of prostate AMB Hemoglobin A1c Today Z13.9 - Encounter for screening, unspecified Lyme IgG/IgM w/reflex to WB Today W57.XXXA - Bitten or stung by nonvenomous insect and other nonvenomous arthropods, initial encounter Tick-borne Disease Molecular Today W57.XXXA - Bitten or stung by nonvenomous insect and other nonvenomous arthropods, initial encounter Influenza [id number] Immunization Today Z23 - Encounter for immunization Referrals Gastroenterology Referral Z12.11 - Encounter for screening for malignant neoplasm of colon Medications: New metformin ER 500 mg PO DAILY 90 days 90 tabs 0RF Changed From gabapentin 300 mg PO BID 90 days 180 caps 3RF To gabapentin 600 mg (2 x 300 mg) PO BID 90 days 360 caps 3RF From hydrochlorothiazide 25 mg PO DAILY 90 days 90 tabs 0RF To hydrochlorothiazide 12.5 mg PO DAILY 90 days 90 tabs 0RF Discontinued metformin Discontinued Reason: Duplicate 500 mg PO BID 90 days 180 tabs 1RF
== END 2024-04-17 15:20 | disposition home or self-care (01) ==
LOC: HO.HMCC 13:30
PROVIDERS: PCP Nurse Practitioner Family; Visit Provider Nurse Practitioner Family
DX: Z12.5 Encounter for screening for malignant neoplasm of prostate (principal); W57.XXXA Bitten or stung by nonvenomous insect and other nonvenomous arthropods, initial encounter; Z12.11 Encounter for screening for malignant neoplasm of colon; Z23 Encounter for immunization; Z13.9 Encounter for screening, unspecified

== ENCOUNTER 2024-04-17 13:30 | Outpatient (REF) | payer OTHER, SELFPAY ==
--- OUTSIDE RECORDS SUMMARY | 2024-04-17 14:14 | XMS_ITS | Continuity of Care Document ---
Author Organization [facility] Address [address] [place] [address] [place] [address] Phone Care Team Providers Care Jewelry Jobber Name Role Phone Isabel Leija APRN Unavailable Unavailable Allergies, Adverse Reactions, Alerts Substance Reaction Status Criticality TETANUS AND DIPHTHERIA TOXOID, PEDIATRIC Active No Information Medications Medication Instructions Dosage Effective Dates (start - stop) Status Comments levothyroxine 50 mcg tablet take 1 tablet by oral route every day 50 MCG - Active Procedures Procedure Date OFFICE/OUTPATIENT VISIT, [facility] SARS-COV-2 DNA AMP PROBE SYST BP LT 130 MM HG DIAST BP < 80 MM HG Advance Directives Directive Yes / No Effective Date File Name No Information Encounters Encounter Description Practice Location Reason(s) For Visit Diagnoses Date Provider Providers Copied on Encounter OFFICE/OUTPAT IENT VISIT, [facility], [address] [place] [address], [id number], tel:[phone] [facility] sore throat (chief complaint) Encounter for observation for suspected exposure to other biological agents ruled out Heladio Hall. [address] [place] [address], [id number] [address] [place] [address], [id number], . tel:[phone] Family History Family Member Type Diagnosis Age At Onset No Information Payers Payer name Insurance type Covered constitution party ID Authoriza tion(s) [employer] CI [id number] Social History Type Description Quantity Date Captured [...] dy. Due on due Goal Zoster vaccine (). Due on due Goal Sigmoidoscopy. Due on [...] Mental Status Date Cognitive Assessment Orientation - [place] ed to time, place, person, situation. Patient Care Teams Name Effective Dates (start - stop) Status Members No Information
[2024-04-17 17:23] LABS: Prostate Specific Antigen Scr 0.65 ng/mL (<0.05-4.0)
[2024-04-18 20:09] LABS: Lyme Abs Screen <0.90 index
[2024-04-19 20:58] LABS: A. Phagocytphilium DNA,RT-PCR NOT DETECTED (NOT DETECTED); Babesia Microti DNA, RT-PCR NOT DETECTED (NOT DETECTED); Borrelia Miyamotoi,DNA RT-PCR NOT DETECTED (NOT DETECTED); E.Chaffeensis DNA RT-PCR NOT DETECTED (NOT DETECTED); Lyme(Borrelia ssp)DNA RT-PCR NOT DETECTED (NOT DETECTED)
== END 2024-04-17 13:31 | disposition home or self-care (01) ==
LOC: HO.HMGCLDS 13:30
PROVIDERS: PCP Nurse Practitioner Family; Visit Provider Nurse Practitioner Family
DX: E11.40 Type 2 diabetes mellitus with diabetic neuropathy, unspecified (principal); T14.8XXA Other injury of unspecified body region, initial encounter; W57.XXXA Bitten or stung by nonvenomous insect and other nonvenomous arthropods, initial encounter; Z79.84 Long term (current) use of oral hypoglycemic drugs; Z12.5 Encounter for screening for malignant neoplasm of prostate; Z23 Encounter for immunization
CPT/HCPCS: 36415; 83036; 84153; 86617; 86618; 87468; 87469; 87478; 87484; 87798; 90471; 90656; 96127

== ENCOUNTER 2024-12-10 11:16 | Outpatient (AMB) | payer OTHER, SELFPAY ==
[2024-12-10 11:19] VITALS: BP 122/82; PULSE 82; O2SAT 90; BMI 38.3
--- NOTE | 2024-12-10 11:19 | MHC.PC.OV ---
Vital Signs 12/10/24 11:19 Height 5 ft 10 in Weight 267 lb BMI 38.3 BP 122/82 Blood Pressure Location Rt brachial Position Sitting Pulse 82 Pulse Source Pulse Oximeter Pulse Oximetry (%) 90 L Oxygen Delivery Method Room Air Intake Visit Reasons: follow up DM Network/Telecom Engineer Required: No Accompanied by: Self / Same As Patient Allergies Opioids - Morphine Analogues Allergy (Unknown, Verified 12/10/24 11:58) unknown morphine Allergy (Verified 12/10/24 11:58) Itching, disoriented Medication List - Last Reconciled 12/10/24 by Ta Serrano, UTILITIES SERVICE INVESTIGATOR- acetaminophen 1,000 mg PO QID PRN albuterol sulfate 90 mcg/actuation 2 puffs inhalation Q4-6H PRN alcohol swabs (Alcohol Prep Pads) 1 pad topical BID atorvastatin 10 mg PO BEDTIME blood sugar diagnostic Onetouch test strips blood sugar diagnostic (skyrockitTouch Ultra Blue Test Strip) Use to test blood sugar twice daily or as needed blood-glucose meter (skyrockitTouch Ultra2 Meter) Use to check blood sugar twice daily or as needed carvedilol 25 mg PO BID 90 days empagliflozin 10 mg PO DAILY gabapentin 100 mg PO DAILY PRN 90 days gabapentin 600 mg (2 x 300 mg) PO BID 90 days hydralazine 100 mg PO BID 90 days hydrochlorothiazide 12.5 mg PO DAILY 90 days lancets (skyrockitTouch Delica Plus Lancet) Use to check blood sugar twice daily lancets As directed lisinopril 40 mg PO DAILY metformin ER 500 mg PO DAILY 90 days nifedipine ER 30 mg PO BID sertraline (Zoloft) 100 mg PO BEDTIME Tobacco use date assessed: 12/10/24 Dental Screening Dental Screen Date: 12/10/24 Did you have a dental visit in the last 12 months?: Yes Did you have a dental problem in the last 6 months where you did not have access to dental care?: No Was dental information given to patient?: Patient has dentist HPI follow up DM HPI Details Chief Complaint The patient presents for a follow-up regarding diabetes management. History of Present Illness The patient is a 59-year-old male presenting with a follow-up for diabetes management. His hemoglobin A1c is stable at 6.4%, indicating good glycemic control. He denies experiencing chest pain or increased dyspnea. The patient reports neuropathy in the lower extremities, with intact sensation upon monofilament testing. He has +1 pitting edema in the bilateral lower extremities, with some weeping from a scab, raising concerns about possible lymphedema. He continues to smoke, which is a significant risk factor for his health. He is interested in participating in a low-dose CT scan program for lung cancer screening, which was previously deferred due to other issues. His eye examination is up to date, having been conducted approximately four months ago. He is due for a colon cancer screening, and a referral has been made, although the initial appointment was canceled. Social History - Tobacco use: The patient continues to smoke. Health Maintenance - Lung cancer screening: Referral for low-dose CT scan placed. - Colon cancer screening: Referral made, initial appointment canceled. Review of Systems - Cardiovascular: Denies chest pain. - Respiratory: Denies increased dyspnea. - Neurological: Reports neuropathy in lower extremities. - Genitourinary: Denies polyuria, polydipsia. Physical Exam General: Cooperative, healthy appearing, comfortable, no acute distress and well developed, but obese Orientation: Patient oriented x3 Limitations: No limitations Head: Normal to inspection Ears: Hearing grossly normal bilaterally Nose: Normal external nose present Face and sinus: Normal facial exam Eyes: Appearance normal, both eyes and all related structures Neck: Normal visual inspection and Yes full ROM Respiratory: Diminished moving air bilaterally Cardiovascular: Regular rate and rhythm. Normal S1 and S2 GI: Normal to inspection. Soft to palpation and nontender Skin: No rashes or lesions noted, but some weeping serrous fluid from a little scab (RLE) Neuro: Patient oriented x3, + sensation with use of monofilament Extremities: +1 pitting edema to bilateral lower extremities, normal to inspection Results - Labs: Hemoglobin A1c at 6.4%. Plan The patient's diabetes management will continue with regular monitoring of hemoglobin A1c levels, which are currently stable at 6.4%. A referral for a low-dose CT scan for lung cancer screening has been placed, as the patient is now interested in participating in the program. Additionally, a referral for colon cancer screening has been made, and the situation regarding the canceled appointment will be addressed. The patient reports neuropathy in the lower extremities, and sensation remains intact upon monofilament testing. There is +1 pitting edema in the bilateral lower extremities, with some weeping from a scab, suggesting possible lymphedema. Venous testing via ultrasound will be conducted to further evaluate this condition. The patient continues to smoke, and smoking cessation should be encouraged to reduce health risks. Discussion Notes During the visit, we discussed the stable status of the patient's diabetes with an A1c of 6.4%. I recommended a low-dose CT scan for lung cancer screening, which the patient is now interested in pursuing. We also addressed the need for colon cancer screening, with a referral already made, and I will follow up on the canceled appointment. The patient reports neuropathy, and we confirmed intact sensation with monofilament testing. There is concern for lymphedema, and I plan to order venous testing via ultrasound. I advised the patient on the importance of smoking cessation to improve overall health outcomes. Patient Instructions - Continue monitoring blood sugar levels and maintain current diabetes management plan. - Attend the scheduled low-dose CT scan for lung cancer screening. - Follow up on the colon cancer screening appointment and reschedule if necessary. - Consider smoking cessation programs to reduce health risks. [facility] Medical History Hypertension Stage 3b chronic kidney disease (CKD) Use of cane as ambulatory aid Nicotine dependence, cigarettes, uncomplicated Diabetes (~2019) Depression Arthritis Sleep apnea Asthma Surgical History History of fusion of cervical spine Hx of cystoscopy Hx of lithotripsy History of liver biopsy (~1996) History of cholecystectomy (~1996) History of excision of lesion (~2021) Family History Mother Diabetes Hypertension Substance use disorder Father Diabetes Hypertension Hyperlipidemia Substance use disorder Social History Housing: House Are you a primary human services care specialist to a significant other at home: No Do you presently have visiting nurse or other home services: No Alcohol intake: current Alcohol intake frequency: a few times a week Comment: count done Patient Tobacco Use Status: Current everyday Tobacco user Tobacco use type: Cigarette Cigarette Packs Per Day: 0.75 Cigarettes Per Day: 15 Years Smoked: 30+ e-Cigarette/Vaping Use: Never Used Second Hand Smoke Exposure: Yes Substance Use Type: Marijuana service: No Current occupational status: retired and disabled Current occupational exposures/hazards: No Cognitive needs: No Hearing needs: No Vision needs: No Questionnaire PHQ-9 Over the last 2 weeks, how often have you been bothered by any of the following problems? 1. Little interest or pleasure in doing things: several days 2. Feeling down, depressed, or hopeless: not at all 3. Trouble falling or staying asleep, or sleeping too much: nearly every day 4. Feeling tired or having little energy: nearly every day 5. Poor appetite or overeating: several days 6. Feeling bad about yourself - or that you are a failure or have let yourself or your family down: more than half the days 7. Trouble concentrating on things, such as reading the newspaper or watching television: not at all 8. Moving or speaking so slowly that other people could have noticed. Or the opposite - being so fidgety or restless that you have been moving around a lot more than usual: not at all 9. Thoughts that you would be better off or of hurting yourself in some way: not at all Total score: 10 Depression Screening Interpretation: Positive Depression Screening Follow-up: Existing condition and Declines treatment Depression Screening Done: Yes 32467 - PHQ-9 Billing: Yes Source: Developed by Drs. Gamaliel Medina, Donya Robbins, Amol Griffin and colleagues, with an educational eli from [facility]. Thrive Questionnaire Date Thrive assessed: 04/17/24 I am a: Patient What is your living situation today?: I have a steady place to live Within the past 12 months, did the food you bought not last and you didn't have the money to get more?: Never true Within the past 12 months, did you worry whether your food would run out before you got money to buy more?: Never true Do you have trouble paying for medicines?: No Do you have trouble getting transportation to medical appointments?: No Do you have trouble paying your heating and electricity bill?: No Do you have trouble taking care of your child, family member or friend?: No Do you have trouble with day-to-day activities such as bathing, preparing meals, shopping, managing finances, etc.?: No Are you currently unemployed and looking for a job?: No Are you interested in more education?: No Please select the resources that you would like help with: None Currently or been in a relationship where the following occur: No concerns reported THRIVE Score: 0 AUDIT C Alcohol Use Questionnaire (AUDIT-C) 1. How often do you have a drink containing alcohol?: 2-4 times a month 2. How many drinks containing alcohol do you have on a typical day when you are drinking?: 1 or 2 3. How often do you have six or more drinks on one occasion?: Never Total Score: 2 GELA-7 AMB Questionnaire GELA-7 Date GELA - 7 assessed: 12/10/24 Feeling nervous, anxious, or on edge: 0 = Not at all Not being able to stop or control worryin = More than half the days Worrying too much about different things: 2 = More than half the days Trouble relaxin = More than half the days Being so restless that it is hard to sit still: 0 = Not at all Becoming easily annoyed or irritable: 1 = Several days Feeling afraid as if something awful might happen: 0 = Not at all Total GELA-7 score (0-4 normal; 5-9 mild; 10-14 moderate; 15-21 severe): 7 Source: Developed by Drs. Gamaliel Medina, Donya Robbins, Amol Griffin and colleagues, with an educational eli from [facility]. GELA-7 Assessment Billing GELA-7 Assessment Tool: GELA-7 Assessment 48942 (denies any si or hi, declines any treatment ) Physical exam (Primary Care) Vital Signs: Last Vital Signs Pulse 82 12/10/24 11:19 BP 122/82 12/10/24 11:19 Pulse Ox 90 L 12/10/24 11:19 Oxygen Delivery Method Room Air 12/10/24 11:19 BMI result Body Mass Index 38.3 Tobacco/Smoking Status: Tobacco use Status Tobacco use date assessed 12/10/24 12/10/24 11:30 Patient Tobacco Use Status Current everyday Tobacco 12/10/24 11:22 Tobacco use type Cigarette 12/10/24 11:22 e-Cigarette/Vaping Use Never Used 12/10/24 11:22 PHQ-9: PHQ-9 Score PHQ-9: Total score 10 12/10/24 11:22 Depression Screening Interpretation: Positive Depression Screening Follow-up: Existing condition and Declines treatment Thrive Assessment: Date of Thrive Assessment Date Thrive assessed 04/17/24 12/10/24 11:22 Currently or been in a relationship where the following occur: No concerns reported Coding Level of Care Code Est Pt Level 4 (52107) Diagnoses Nicotine dependence, cigarettes, uncomplicated F17.210 Leg swelling M79.89 Screening PSA (prostate specific antigen) Z12.5 Diabetes E11.9 Additional Codes PHQ-9 - 31567 - PHQ-9 Billing: Yes ([id number]) GELA-7 Assessment Billing - GELA-7 Assessment Tool: GELA-7 Assessment 26773 ([id number]) Assessment & Plan Assessment & Plan (1) Nicotine dependence, cigarettes, uncomplicated: Comment: (current smoker -1ppd x 42yrs, now 1/2ppd - 35+PYH) Code(s): F17.210 - Nicotine dependence, cigarettes, uncomplicated Category: Medical (2) Leg swelling: Code(s): M79.89 - Other specified soft tissue disorders Category: Medical (3) Screening PSA (prostate specific antigen): Code(s): Z12.5 - Encounter for screening for malignant neoplasm of prostate Category: Medical (4) Diabetes: Onset Date: ~2019 Code(s): E11.9 - Type 2 diabetes mellitus without complications Category: Medical Plan . Orders: Orders Complete Blood Count Auto Diff Today M79.89 - Other specified soft tissue disorders TSH reflex Free T4 Today M79.89 - Other specified soft tissue disorders UA CC w/rflx Micro + Cult Today M79.89 - Other specified soft tissue disorders Lipid Panel Today M79.89 - Other specified soft tissue disorders US venous insuf bilat Today M79.89 - Other specified soft tissue disorders Comprehensive [place]. Panel Fast Today M79.89 - Other specified soft tissue disorders Prostate Specific Antigen Scr Today Z12.5 - Encounter for screening for malignant neoplasm of prostate Referrals Lung Cancer Screening Referral F17.210 - Nicotine dependence, cigarettes, uncomplicated
--- OUTSIDE RECORDS SUMMARY | 2024-12-10 12:23 | XMS_ITS | Clinical Summary ---
Author Organization [facility], Address [address] [place] [address] [place] [address] Phone Care Team Providers Care Development Chemist Name Role Phone Ta Serrano NP Primary Care Provider [phone] Allergies Active Allergy Reactions Criticality Noted Date Comments Morphine Other (see comments) 07/27/2022 Medications albuterol HFA (PROVENTIL HFA;VENTOLIN HFA) 108 (90 Base) MCG/ACT inhaler 06/28/2022 Active atorvastatin (LIPITOR) 10 MG tablet Take 10 mg by mouth at bed time 06/20/2022 Active carvedilol (COREG) 25 MG tablet Take 25 mg by mouth in the morning and 25 mg in the evening. 06/20/2022 Active cloNIDine (CATAPRES) 0.2 MG tablet Take 0.2 mg by mouth in the morning and 0.2 mg in the evening. 06/26/2022 Active Jardiance 10 MG tablet Take by mouth 1 (one) time each day 06/26/2022 Active hydrALAZINE 100 MG tablet Take 100 mg by mouth in the morning and 100 mg at noon and 100 mg in the evening. 06/07/2022 Active hydroCHLOROthia zide 25 MG tablet Take 25 mg by mouth 1 (one) time each day 06/27/2022 Active lisinopril 40 MG tablet Take 40 mg by mouth 1 (one) time each day 06/20/2022 Active metFORMIN (GLUCOPHAGE) 1000 MG tablet Take 1,000 mg by mouth in the morning and 1,000 mg in the evening. 06/26/2022 Active NIFEdipine CC (ADALAT CC) 30 MG 24 hr tablet Take 30 mg by mouth in the morning and 30 mg in the evening. 06/27/2022 Active sertraline (ZOLOFT) 100 MG tablet Take 100 mg by mouth 1 (one) time each day 06/23/2022 Active tamsulosin (FLOMAX) 0.4 MG 24 hr capsule TAKE 1 CAPSULE(0.4 MG) BY MOUTH EVERY DAY 30 capsule 3 04/10/2023 Active Active Problems Problem Noted Date Diagnosed Date Chronic kidney disease stage 2 07/27/2022 Edema 07/27/2022 Renal stone 07/27/2022 Flank pain 07/27/2022 Microalbuminuria 07/27/2022 Family History Medical History Relation Comments Cancer Father Diabetes Father Heart disease Father Hypertension Father Kidney disease Father kidney failure o n dialysis Diabetes Mother Heart disease Mother Hypertension Mother Kidney disease Mother CKD Relation Status Comments Father Mother Alive Social History Tobacco Use Types Packs/Day Years Used Date Smoking Tobacco: Every Day Tobacco Cessation:Ready to Q uit: Not Asked; Counseling Given: Not Answered Alcohol Use Standard Drinks/Week Comments Yes 1 (1 standard drink = 0.6 oz pur e alcohol) Sometimes 1-3 weekly Sex and Gender Information Value Date Recorded Sex Assigned at Not on file Legal Sex Male 5:16 PM EST Gender Identity Not on file Sexual Orientation Not on file Last Filed Vital Signs Vital Sign Reading Time Taken Comments Blood Pressure 140/90 03/26/2019 12:01 PM EST Pulse 72 03/26/2019 12:01 PM EST Temperature - - Respiratory Rate - - Oxygen Saturation - - Inhaled Oxygen Concentration - - Weight 126 kg (278 lb) 03/26/2019 12:01 PM EST Height 180.3 cm (5' 11 ) 09/24/2019 12:00 PM EDT Body Mass Index 38.77 03/26/2019 12:01 PM EST Plan of Treatment Health Maintenance Due Date Last Done Comments Hepatitis B Vaccine (1 of 3 - 19+ 3-dose series) 11/29 Pneumococcal Vaccine: 50+ Years (1 of 2 - PCV) 985 Colorectal Cancer Screening: Annual FOBT 2014 Colorectal Cancer Screening: Colonoscopy 2014 Colorectal Cancer Screening: Sigmoidoscopy 2014 Influenza Vaccine (#1) 2024 Insurance Care Teams Development Chemist Relationship Specialty Start Date End Date Ta Serrano NP [address] [place] [address] PCP - General Nurse Practitioner 07/06/22
== END 2024-12-10 12:51 | disposition home or self-care (01) ==
LOC: HO.HMCC 11:17
PROVIDERS: PCP Nurse Practitioner Family; Visit Provider Nurse Practitioner Family
DX: F17.210 Nicotine dependence, cigarettes, uncomplicated (principal); M79.89 Other specified soft tissue disorders; Z12.5 Encounter for screening for malignant neoplasm of prostate; E11.9 Type 2 diabetes mellitus without complications; Z13.9 Encounter for screening, unspecified

== ENCOUNTER → 2024-12-10 11:16 | Outpatient (BNVA) | payer OTHER, SELFPAY | PROVIDERS: PCP Nurse Practitioner Family; Visit Provider Nurse Practitioner Family | DX: E11.40 Type 2 diabetes mellitus with diabetic neuropathy, unspecified (principal); M79.89 Other specified soft tissue disorders; F17.210 Nicotine dependence, cigarettes, uncomplicated | CPT/HCPCS: 83036; 96127 ==

== ENCOUNTER 2025-04-03 14:58 | Outpatient (AMB) | payer OTHER, SELFPAY ==
--- OUTSIDE RECORDS SUMMARY | 2020-05-04 06:00 | XMS_ITS | Continuity of Care Document ---
Author Organization [facility] Address [address] [place] [phone] Phone Care Team Providers Care Set Up Inspector Name Role Phone Isabel Leija APRN Unavailable Unavailable Allergies, Adverse Reactions, Alerts Substance Reaction Status Criticality TETANUS AND DIPHTHERIA TOXOID, PEDIATRIC Active No Information Medications Medication Instructions Dosage Effective Dates (start - stop) Status Comments levothyroxine 50 mcg tablet take 1 tablet by oral route every day 50 MCG - Active Procedures Procedure Date OFFICE/OUTPATIENT VISIT, [facility] SARS-COV-2 DNA AMP PROBE SYST BP LT 130 MM HG DIAST BP < 80 MM HG Advance Directives Directive Yes / No Effective Date File Name No Information Encounters Encounter Description Practice Location Reason(s) For Visit Diagnoses Date Provider OFFICE/OUTPATIE NT VISIT, [facility], [address] [place] [address], [id number], tel:[phone] PMG [place] sore throat (chief complaint) Encounter for observation for suspected exposure to other biological agents ruled out [address] [facility] [place] [address], [id number] [address] [place] [address], [id number], [place]. tel:[phone] Family History Family Member Type Diagnosis Age At Onset No Information Payers Payer name Insurance type Covered libertarian ID Authorpeggya avani(s) Burtonpepecheryl CI [id number] Social History Type Description Quantity Date Captured Comments Alcohol Use Details Caffeine Use Details coffee Tobacco Use Status Heavy cigarette smok er (20-39 cigs/day) Smoking Status Heavy tobacco smoker Smoking Tobacco Use Details Cigarette: No Details Available Cigarette: 1 Packs per day, Sex Male Sexual Orientation Straight or heterosexual Gender Identity Male Vital Signs Date / Time: Height Weight BMI Pulse Rate Blood Pressure Temperature Respiratory Rate Body Surface Area Head Circumference Head Circ. Percentile Wt./Brendan. Percentile BMI percentile Pulse Ox Inhaled Ox 11:12 AM 91 /min 128/76 mm[Hg] 96.70 F 16 /min 100 % Chief Complaint And Reason For Visit From encounter dated '05/04/2020 11:00'. sore throat (chief complaint). Description: Onset: 2 Days. Symptoms are associated with smoker and covid exposure. Associated symptoms include cough, headache, pharyngitis and body aches. Pertinent negatives include fever. Plan Of Treatment Date Type Action Status Goal FOBT. Due on due Goal Cologuard. Due on due Goal HIV Screening Antigen/Antibo dy. Due on due Goal Zoster vaccine (1st). Due on due Goal Sigmoidoscopy. Due on due Goal Colonoscopy. Due on 021 due Goal Anxiety/Depression Screen (P HQ-2). Due on due Goal Tobacco cessation counseling completed Goal Tobacco cessation counseling completed History Of Present Illness Encounter Date Complaint History Of Prese nt Illness sore throat Onset: 2 Days. S ymptoms are associated with smoker and covid exposure. Associated symptoms include cough, headache, pharyngitis and body aches. Pertinent negatives include fever. Instructions Date Instruction Additional Infor adalidion COVID-19 test Negati veAdvised to start Vitamin C dailyHydrationAdvised to continue to monitor for sxs and if they worsen to call the office or difficulty breathing, shortness of breath call [phone] to continue to wear face covering in public and to adhere to social distancing. Verbalized understanding. Related to Encounter for observation for suspected exposure to other biological agents ruled out BRIEF EMOTIONAL/BEHAV ASSMT Assessments Type Assessment Date assessment Encounter for observ ation for suspected exposure to other biological agents ruled out impression Pt's tested pos itive today.He reports having sxs of sore throat and malaise. Mental Status Date Cognitive Assessment Orientation - [place] ed to time, place, person, situation.
--- NOTE | 2025-04-03 15:07 | A.SPINEOV_ITS ---
Intake Visit Reasons: R arm & shoulder pain Intake Note: Mr. Xavier is here today c/o right arm and shoulder pain. Consulting Psychiatrist Required: No Allergies Opioids - Morphine Analogues Allergy (Unknown, Verified 12/10/24 11:58) unknown morphine Allergy (Verified 12/10/24 11:58) Itching, disoriented Assessment & Plan Assessment & Plan (1) Cervical myelopathy: Code(s): G95.9 - Disease of spinal cord, unspecified Category: Medical Plan Mr Xavier is here in follow up. He is having a new problem that started about 3 or 4 weeks ago. For no specific reason he awoke with pain radiating down from his neck into his posterior triceps and into his forearm ending at about his wrist. There is tingling and numbness associated with this as well. He has a previous history of a C3-[address] Fernandes which is adjacent to a previous C4-7 anterior cervical fusion done at another facility. He has been taking a leave and Tylenol without any relief. He has been having a hard time sleeping or doing any activities. His hand is starting to feel weak as well. His diabetic A1c is in the 6.5 range so his sugars are relatively well controlled at this point. On exam he is very uncomfortable, has a hard time opening and closing his hand with any degree of strength, his finger intrinsics and palmar grasp muscles are about 4/5 on the right. Reflexes are 3+ and symmetric. I am concerned that he may have developed adjacent segment disease at C7-T1. I am going to order an MRI of the cervical spine. We will do this at the open MRI at [facility]. I will see him back after the MRIs completed. In light of his recent symptoms and the setting of his previous surgeries in the amount of pain he is in, I do not think it is reasonable to send him to physical therapy at this point. He is in too much pain and with his previous surgeries I would like to get a better look at what is going on before I send him to any kind of follow-up care or further treatment. I did warn him however that his insurance company may require this. Total amount of time spent in this visit was 20 minutes in discussion of symptoms, ordering cervical mri and subsequent plan of care Daryl Fernandes MD,PhD [facility] Coding Level of Care Code Est Pt Level 3 (34720) Diagnoses Cervical myelopathy G95.9
== END 2025-04-03 15:42 | disposition home or self-care (01) ==
LOC: HO.HNS 14:59
PROVIDERS: PCP Nurse Practitioner Family; Visit Provider Physician Assistant
DX: G95.9 Disease of spinal cord, unspecified (principal)
CPT/HCPCS: 99213

== ENCOUNTER 2025-04-14 11:32 | Outpatient (AMB) | payer OTHER, SELFPAY ==
--- NOTE | 2025-04-14 11:36 | A.SPINEOV_ITS ---
Intake Visit Reasons: MRI f/up Intake Note: Mr. Xavier is here today to f/u on the results to his MRI. Valver Required: No Allergies Opioids - Morphine Analogues Allergy (Unknown, Verified 12/10/24 11:58) unknown morphine Allergy (Verified 12/10/24 11:58) Itching, disoriented Assessment & Plan Assessment & Plan (1) Cervical radiculopathy: Code(s): M54.12 - Radiculopathy, cervical region Category: Medical Plan Mr Xavier is here in follow-up. He had severe right arm pain develop about a month ago going down into his hand and fingers. Given his extensive surgical history I ordered an MRI. It was done at [facility], and thankfully I do not see any signs of an acute herniated disc. There is a little bit of narrowing in the right C7-T1 foramen but I do not think it is enough to justify surgery at this point. He thinks he is clinically doing better. He has been resting more and the arm pain isn't quite as bad. I think this will run its course over time. For now I told him we could do conservative treatment in the form of PT and injections have you wanted to, but that if he wants to just let this go and see if it heals on its own that is also an acceptable option. Total amount of time spent in this visit was 20 minutes in discussion of symptoms, cervical MRI imaging results and subsequent plan of care Daryl Fernandes MD,PhD [facility] Coding Level of Care Code Est Pt Level 3 (36314) Diagnoses Cervical radiculopathy M54.12
== END 2025-04-14 11:56 | disposition home or self-care (01) ==
PROVIDERS: PCP Nurse Practitioner Family; Visit Provider Physician Assistant
DX: M54.12 Radiculopathy, cervical region (principal)
CPT/HCPCS: 99213